=== PATIENT | female | born 1985 | race Caucasian/White ===

== ENCOUNTER → 2017-10-06 11:00 | Outpatient (CLI) | payer SELFPAY ==
[2017-10-09 08:41] LABS: HPV Reflexed? NOT INDICATED
== END ==
PROVIDERS: Visit Provider Obstetrics & Gynecology
DX: Z12.4 Encounter for screening for malignant neoplasm of cervix (principal)
CPT/HCPCS: 88175; G0145

== ENCOUNTER → 2018-10-19 | Outpatient (CLI) | payer SELFPAY ==
[2016-07-06 21:04] VITALS: BMI 27.2
[2018-10-20 20:14] LABS: Chlamydia Trachomatis by PCR Negative (Negative); Neisserai gonorrhoeae by PCR Negative (Negative); Probe Check PASS; Sample Adequacy Control PASS; Specimen Processing Control PASS
== END | disposition home or self-care (01) ==
LOC: LABSPEC 10-20 09:51
PROVIDERS: Visit Provider Obstetrics & Gynecology
DX: Z11.3 Encounter for screening for infections with a predominantly sexual mode of transmission (principal)
CPT/HCPCS: 87491; 87591

== ENCOUNTER → 2019-03-16 10:23 | Outpatient (CLI) | payer SELFPAY ==
[2019-03-16 14:58] LABS: Glucose 85 mg/dL (74-106)
[2019-03-16 15:02] LABS: Glucose 87 mg/dL (74-106)
== END ==
PROVIDERS: Visit Provider Obstetrics & Gynecology
DX: Z34.83 Encounter for supervision of other normal pregnancy, third trimester (principal)
CPT/HCPCS: 36415; 82947

== ENCOUNTER → 2019-05-13 | Outpatient (CLI) | payer SELFPAY ==
[2016-07-06 21:04] VITALS: BMI 27.2
== END | disposition home or self-care (01) ==
LOC: LABSPEC 14:54
PROVIDERS: Visit Provider Obstetrics & Gynecology
DX: Z36.85 Encounter for antenatal screening for Streptococcus B (principal)
CPT/HCPCS: 87081

== ENCOUNTER 2019-06-05 21:55 | Inpatient (IN) | payer SELFPAY ==
[2016-07-06 21:04] VITALS: BMI 27.2
[2019-06-05 22:28] VITALS: BMI 24.7
[2019-06-05] MEDS: 0.9% Saline Lock 10 ML Syringe IV (23:04)
[2019-06-05 23:32] LABS: Absolute Lymphocyte Count 1.51 X10^3/uL (0.83-4.51); Absolute Neutrophil Count 6.4 X10^3/uL (2.0-7.7); Basophil# 0.01 X10^3/uL; Basophil% 0.1 % (0-1); Eosinophil# 0.03 X10^3/uL; Eosinophils% 0.4 % (0-5); Hematocrit 40.3 % (37-47); Hemoglobin 13.4 g/dL (12.0-15.0); Lymphocyte # 1.51 X10^3/ul (4.0); Mean Corp Hgb Conc 33.3 g/dL (32-36); Mean Corpuscular Volume 87.2 fL (81-99); Mean Platelet Vol. 10.4 fl (6.2-12.0); Monocyte# 0.44 X10^3/uL; Monocyte% 5.3 % (0-10); NRBC Flagged by Analyzer 0 % (0-5); Neutrophil # 6.36 X10^3/uL (2.7-7.7); Neutrophil % 75.8 % (47-70); Platelet Count 156 K/mm3 (150-450); RBC Distribution Width CV 13.2 % (11.6-14.6); RBC Distribution Width SD 41.6 fl (35.1-43.9); Red Blood Count 4.62 M/mm3 (4.2-5.4); White Blood Count 8.4 K/mm3 (4.4-11.0)
--- NOTE | 2019-06-06 00:14 | PCM.HP.OB ---
- Problem List (1) 39 weeks gestation of Status: Acute History Date of Admission: 06/05/19 Final NICOLE: 06/07/19 Gestational age: 39 Weeks and 6 Days History of this : This is a 33 year-old, G [6], P []3023, at 39 5/7 weeks gestational age with c/o contractions. Medical History: Medical History (Last Updated 06/06/19 @ 00:[address] Berenice Mclaughlin MD) Ventricular tachycardia I47.2 Surgical History: Surgical History (Last Updated 06/06/19 @ 00:[address] Berenice Mclaughlin MD) H/O breast biopsy Z98.890 Allergies latex Adverse Reaction (Verified 06/05/19 22:29) Rash Home Medications: Home Medications Vits [Prenatabs FA] 1 tablet PO DAILY 07/06/16 Smoking Status: Never smoker Alcohol: None Number of Fetus(es): 1 NST - FHR Rate Baby A Baseline: 140 Variability:: Moderate Accelerations:: 15 x 15 Decelerations:: None NST Reactive:: Yes FHR Category:: Category I Uterine Activity:: 3-4/10 min History Past Pregnancies: Past Pregnancies Delivery Date Name GA/ Weeks Outcome Route Wt Infant Sex Labor Length Anesthesia Delivery Location FOB 04/2010 39 Living 6lb8oz F 7 None [facility] Jason 06/2011 Myrna 39 Living 7lb8oz F 6 None [facility] Jason 10/2013 9 [facility] Jason 06/2016 Serafin 38 Living 9lb2oz M 0 None [facility] Jason 03/2018 6 SAB Home Jason Labs: Mom's Labs & Results 06/05/19 06/05/19 23:04 23:04 WBC 8.4 RBC 4.62 Hgb 13.4 Hct 40.3 MCV 87.2 MCH 29.0 MCHC 33.3 RDW Std Deviation 41.6 RDW Coeff of Abiodun 13.2 Plt Count 156 MPV 10.4 Immature Gran % (Auto) 0.400 Neut % (Auto) 75.8 H Lymph % (Auto) 18.0 L Powell % (Auto) 5.3 Eos % (Auto) 0.4 Baso % (Auto) 0.1 Absolute Neuts (auto) 6.4 Absolute Lymphs (auto) 1.51 Nucleated RBC % 0 Blood Type Pending Antibody Screen Pending Course Did the patient receive Yes care? Labs Blood Type: A RH: POSITIVE RPR/VDRL/Syphilis Nonreactive Rubella status Non-immune HbSAg Negative Date Done: 11/30/18 Chlamydia Negative Gonorrhea Negative HIV/AIDS Non-Reactive Group B Strep: Negative Current Obstetrical History Gestational Diabetes No Incompetent Cervix No Infertility No IUGR No Macrosomia No Hypertension/Pre-eclampsia No Placenta Previa/Abruption No PTL/PROM No Uterine anomaly Yes: marginal placenta previa that resolved on its own Oligohydramnios No Polyhydramnios No Multiple gestation No Past Medical History Asthma No Diabetes No Hypertension No Heart disease No Mitral valve prolapse No Neurologic/Seizure disorder/ No Migraines Kidney disease No Liver disease No Varicosities No Clotting disorders/Hx of DVT No Thyroid Dysfunction No Other medical diseases No Psychiatric disorders No Major trauma No Abnormal PAP smear No Sleep apnea No Mammogram in the last 2 years No: right breast lump that was biopsied Enter DETAILS of medical wide complex V-tach and palpatations history occasionally, heart murmur Social History Marital Status: Alleged father Jason Hsu Smoking No Smoking Status Never smoker Expected Delivery Method: Spontaneous Vaginal Number of Visits: 11 Physical Exam Vitals: avss General: Alert, Oriented x3, Cooperative, No apparent distress HEENT: Atraumatic, Normocephalic Cardiovascular: Regular rate, Regular Rhythm, Normal S1, Normal S2 Lungs: Normal air movement Abdomen: Soft, Non Tender, Non-Distended, Gravid Extremities:: No edema Neurological: Neuro grossly intact Estimated gestational size: Appropriate for gestational size Presentation: Cephalic Cervix Dilation (cm): 8 Station: -1 Effacement (%): 90 Assessment/Plan All Active Problems (Last Updated 06/06/19 @ 00:[address] Berenice Mclaughlin MD) 39 weeks gestation of (Acute) (spontaneous vaginal delivery) (Acute) This is a 33 year-old, G [6], P [0663], at 39 5/7 weeks gestational age in active labor, Cat I FHR -Anticipate
[2019-06-06] MEDS: Oxytocin 30 units/NS 500 ml 30 UNITS/500 ML IV.SOLN 334 UNITS IV (01:31)
--- NOTE | 2019-06-06 01:45 | PCM.OPRPT ---
Problem List (1) 39 weeks gestation of Status: Acute (2) (spontaneous vaginal delivery) Status: Acute Vaginal Delivery Maternal Presentation: Active Labor Amniotic Membrane Rupture Type: Artificial Rupture of Membrane time: 06/06/19 0040 Amniotic Fluid Description: Cloudy Final NICOLE: 06/07/19 Final NICOLE Source: [place] <20 weeks Gestational age: 39 Weeks and 6 Days Date of Procedure: 06/06/19 Pre-Operative Diagnosis: 39 6/7wga Post-Operative Diagnosis: 39 6/7wga Surgery/ Procedure Performed: Spontaneous Vaginal Delivery Type of Anesthesia: None Description of Procedure: Patient was / and amniotomy performed with blood tinged fluid. She progressed to FD/+1 station with fluid clearing in color. She pushed to deliver a vigorous female over an intact perineum. The infant was placed on the maternal abdomen and further attended by nursery personnel. The cord was doubly clamped and cut at 5 minutes of life. The placenta delivered spontaneously and appeared intact on inspection. Fundus firm and nontender. Sponge counts correct x 2. Presentation: Vertex Placental Delivery Description: Spontaneous Placenta Disposition: [facility] Cord Vessel Description: 3 Vessels Nuchal Cord Compression: Without compression Cord Entanglement: Around neck x 1, loose Estimated Blood Loss: 50 ml Infant A gender: Female (1 minute): 9 (5 minute): 9 Episiotomy Description: None Laceration: None Medications given after delivery: IV Pitocin Complications: None
[2019-06-06] MEDS: Acetaminophen 500 MG Tablet 1000 MG PO ×3 (04:00→21:04)
--- NOTE | 2019-06-06 07:29 | DCINST_ITS ---
Discharge Diet: No Restrictions Discharge Activity: Return to Normal Activity, May Shower, May Take a Tub Bath May resume sexual activity in: 6 weeks Additional Instructions: If you experience any of the following, contact your healthcare provider. * Bleeding that soaks a pad every hour for 2 hours * Fever 100.4 or higher * Unrelieved incision or abdominal pain * Swelling, redness, discharge or bleeding from your incision or episiotomy site * Your incision begins to separate * Problems urinating (including inability to urinate or burning while urinating). * Visual changes * Severe headache * Flu-like symptoms * Pain or redness in one of both of your breasts * Pain, warmth, tenderness or swelling in your legs, especially the calf area * Frequent nausea and vomiting * Symptoms of depression or anxiety If you experience any of the following, call 911 or go to the nearest Emergency Room. * Chest pain * Problems breathing * Seizure activity * Partial or complete paralysis of a body part, slurred speech, weakness or drooping of the face, or a sudden inability to walk or hold your balance You may take Ibuprofen (Advil or Motrin) or Naproxen (Aleve) over the counter for pain. Take a stool softener as needed. Continue your multivitamin while . Allergies/Adverse Reactions: Allergies latex Adverse Reaction (Verified 06/05/19 22:29) Rash Medications to take at Discharge Vits [Prenatabs FA] 1 tablet PO DAILY 07/06/16 Please Follow Up With: Josh Bennett MD When: 6 weeks Test Results: Test results from this visit will be discussed in further detail at your follow- up appointment, if applicable.
--- NOTE | 2019-06-06 07:29 | PCM.DCVAG ---
Discharge Diet: No Restrictions Discharge Activity: Return to Normal Activity, May Shower, May Take a Tub Bath May resume sexual activity in: 6 weeks Additional Instructions: If you experience any of the following, contact your healthcare provider. Bleeding that soaks a pad every hour for 2 hours Fever 100.4 or higher Unrelieved incision or abdominal pain Swelling, redness, discharge or bleeding from your incision or episiotomy site Your incision begins to separate Problems urinating (including inability to urinate or burning while urinating). Visual changes Severe headache Flu-like symptoms Pain or redness in one of both of your breasts Pain, warmth, tenderness or swelling in your legs, especially the calf area Frequent nausea and vomiting Symptoms of depression or anxiety If you experience any of the following, call 911 or go to the nearest Emergency Room. Chest pain Problems breathing Seizure activity Partial or complete paralysis of a body part, slurred speech, weakness or drooping of the face, or a sudden inability to walk or hold your balance You may take Ibuprofen (Advil or Motrin) or Naproxen (Aleve) over the counter for pain. Take a stool softener as needed. Continue your multivitamin while . Allergies/Adverse Reactions: Allergies latex Adverse Reaction (Verified 06/05/19 22:29) Rash Medications to take at Discharge Vits [Prenatabs FA] 1 tablet PO DAILY 07/06/16 Please Follow Up With: Josh Bennett MD When: 6 weeks Test Results: Test results from this visit will be discussed in further detail at your follow-up appointment, if applicable.
[2019-06-06 07:44] VITALS: BP 98/56; TEMP 36.6
[2019-06-06 08:07] VITALS: RESP 14
[2019-06-06] MEDS: Prenatal Vits Tablet 1 TABLET PO (10:19)
[2019-06-06 12:00] VITALS: BP 105/55; RESP 16; TEMP 36.8
--- NOTE | 2019-06-06 13:06 | NURSING ---
This clinical nursing manager gave tylenol 1000mg with Cierra Loja student nurse. Student's documentation reviewed and completed.
[2019-06-06 15:12] VITALS: BP 106/55; PULSE 74; RESP 16; TEMP 36.4
[2019-06-06 20:48] VITALS: BP 114/61; PULSE 74; RESP 16; TEMP 36.6
[2019-06-07 01:40] VITALS: BP 97/55; PULSE 70; RESP 16; TEMP 36.5
--- NOTE | 2019-06-07 08:33 | PCM.PN.OB ---
Patient Problems: Active and Suspected Problems (Last Updated 06/06/19 @ 00:[address] Berenice Mclaughlin MD) 39 weeks gestation of (Acute) (spontaneous vaginal delivery) (Acute) Subjective: Patient without complaints. Breast-feeding going well. Wants to go home today if baby is able to go. - Physical Exam Vitals/I&O's: Vital Signs Temp Pulse Resp BP 97.7 F L 70 16 97/55 L 06/07/19 01:40 06/07/19 01:40 06/07/19 01:40 06/07/19 01:40 Oxygen Delivery Method Room Air Weight: 163 lb Body Mass Index (BMI) 24.7 Intake and Output for Last 24 Hours 06/05/19 06/06/19 06/07/19 23:59 23:59 23:59 Intake Total 500 / 500 Output Total 600 / 600 Balance -100 / -100 Current Medications Acetaminophen (Tylenol) 1,000 mg PO Q8H PRN PRN PRN Reason: Pain Score 1-3/10 Last Admin: 06/06/19 21:04 Dose: 1,000 mg Documented by: Bisacodyl (Dulcolax) 10 mg RECTAL UD PRN PRN Reason: If no BM Dibucaine (Dibucaine) 1 applic TOPICAL TID PRN PRN; Protocol PRN Reason: Discomfort Hydrocortisone (Hytone) 1 applic TOPICAL TID PRN PRN; Protocol PRN Reason: Discomfort Measles/Mumps/Rubella Vaccine Live (M-M-R Ii) 0.5 ml SC .ONCE ONE Stop: 06/07/19 10:01 Methylergonovine Maleate (Methergine) 0.2 mg IM X1 PRN PRN Reason: Excess bleeding/uterine atony Ondansetron HCl (Zofran) 4 mg IV Q4H PRN PRN PRN Reason: Nausea Multivit/Folic Acid/Iron (Prenatabs Fa) 1 tablet PO DAILY MARLENE Last Admin: 06/06/19 10:19 Dose: 1 tablet Documented by: Senna/Docusate Sodium (Senokot-S, Jacki-Colace) 1 - 2 tablet PO DAILY PRN PRN PRN Reason: Constipation Simethicone (Mylicon) 80 mg PO PCHS PRN PRN Reason: Indigestion/Stomach pain Sodium Chloride () 5 - 15 ml IV UD PRN PRN Reason: SALINE FLUSH Medical Necessity - Tobacco Use Smoking Status: Never smoker Assessment/Plan All Active Problems (Last Updated 06/06/19 @ 00:[address] Berenice Mclaughlin MD) 39 weeks gestation of (Acute) (spontaneous vaginal delivery) (Acute) Doing well day #1 status post routine spontaneous vaginal delivery. Will discharge to home with routine instructions.
[2019-06-07] MEDS: Acetaminophen 500 MG Tablet 1000 MG PO (09:26)
[2019-06-07] MEDS: Senna/Docusate Sodium 1 Tablet PO (09:26)
[2019-06-07] MEDS: Prenatal Vits Tablet 1 TABLET PO (09:26)
[2019-06-07 10:00] VITALS: BP 104/59; PULSE 72; RESP 16; TEMP 36.8; O2SAT 99
[2019-06-07 12:36] VITALS: BP 105/62; PULSE 73; RESP 16; TEMP 36.7
== END 2019-06-07 14:00 | disposition home or self-care (01) | DRG 807 ==
LOC: WPOUT 22:16 → WP 22:16
PROVIDERS: Admitting Provider Obstetrics & Gynecology; Visit Provider Obstetrics & Gynecology
DX: O69.81X0 Labor and delivery complicated by cord around neck, without compression, not applicable or unspecified (principal); Z37.0 Single live birth; Z3A.39 39 weeks gestation of pregnancy
CPT/HCPCS: 59050; 85025; 86850; 86900; 86901; 99218; A4216; G0378

== ENCOUNTER → 2020-01-04 | Outpatient (CLI) | payer SELFPAY ==
[2020-01-09 15:28] LABS: HPV Reflexed? NOT INDICATED
== END | disposition home or self-care (01) ==
LOC: LABSPEC 14:36
PROVIDERS: Visit Provider Obstetrics & Gynecology
DX: Z12.4 Encounter for screening for malignant neoplasm of cervix (principal)
CPT/HCPCS: 88175; G0145

== ENCOUNTER → 2022-06-03 | Outpatient (CLI) | payer SELFPAY ==
[2022-06-09 21:09] LABS: HPV APTIMA, High Risk Negative (Negative)
== END | disposition home or self-care (01) ==
PROVIDERS: Visit Provider Student in an Organized Health Care Education/Training Program
DX: Z12.4 Encounter for screening for malignant neoplasm of cervix (principal)
CPT/HCPCS: 87624; 88175; G0145

== ENCOUNTER → 2024-08-31 | Outpatient (CLI) | payer SELFPAY ==
[2024-08-31 13:23] LABS: hCG Titer Quant., Serum < 1 mIU/mL (<9 non-preg)
[2024-08-31 13:44] LABS: Estradiol < 5.0 pg/mL; Luteinizing Hormone 77.5 mIU/mL
== END | disposition home or self-care (01) ==
PROVIDERS: PCP Physician Assistant; Referring Provider Advanced Practice Midwife; Visit Provider Advanced Practice Midwife
DX: N91.1 Secondary amenorrhea (principal); Z13.29 Encounter for screening for other suspected endocrine disorder
CPT/HCPCS: 36415; 82670; 83001; 83002; 84439; 84443; 84702

== ENCOUNTER → 2024-10-03 | Outpatient (CLI) | payer SELFPAY | END | disposition home or self-care (01) | LOC: LAB 11:02 | PROVIDERS: PCP Physician Assistant | DX: Z00.00 Encounter for general adult medical examination without abnormal findings (principal) | CPT/HCPCS: 36415 ==

== ENCOUNTER → 2024-10-12 | Outpatient (CLI) | payer SELFPAY ==
--- OUTSIDE RECORDS SUMMARY | 2024-10-12 22:46 | XMS RPT_ITS | CCD ---
Author Organization [facility] Care Team Providers Care Employer Relations Representative Name Role Phone VERDIN, EDD J Consulting Unavailable VERDIN, EDD J Attending Unavailable VERDIN, EDD J Admitting Unavailable VERDIN, EDD J Primary Care Unavailable PROVIDER, UNKNOWN Consulting Unavailable VERDIN, EDD J Primary Care Unavailable VERDIN, EDD J Consulting Unavailable VERDIN, EDD J Attending Unavailable VERDIN, EDD J Admitting Unavailable PROVIDER, UNKNOWN Consulting Unavailable VERDIN, EDD J Primary Care Unavailable VERDIN, EDD J Consulting Unavailable VERDIN, EDD J Attending Unavailable VERDIN, EDD J Admitting Unavailable PROVIDER, UNKNOWN Consulting Unavailable AMATO, ERIKA PA-C Admitting Unavailable AMATO, ERIKA PA-C Primary Care Unavailable AMATO, ERIKA PA-C Attending Unavailable VERDIN, EDD J Consulting Unavailable PROVIDER, UNKNOWN Consulting Unavailable Verdin PA-C, Edd J Unavailable Verdin PA-C, Edd J Unavailable [facility] Unavailable [phone] Heidi Harman MD Unavailable Sherrie Hollis LPN Unavailable Amato PA-C, Erika J Unavailable Diego Borrero MD Unavailable Too PA-C, Yesika Pugh Unavailable Isai HARRIS, Yesika Landers Unavailable Unavaila ble Patrick HERNÁNDEZN, Cathy Kam Unavailable Unavaessence Perez STRIPPER CUTTER MACHINE, Heidi Jacinto Unavailable Unavailab oliva Faye LPN, Janet Unavailable Unavailabl silvia Hillman LPN, Courtney Unavailable Unavailable Unavailable Unavailable ENT Provider Unavailable Unavailable Lisandra COLLINS, Shruti Unavailable UnavailSonja Dia MA Unavailable Unavailable Verdin REECE, Edd Primary Care Provider [phone] Edd Comer Referring Provider Joelle Muniz CNM Attending Provider [phone] Joelle Muniz CNM Referring Provider [phone] MARY BETH BORRERO Attending Provider MARY BETH BORRERO Referring Provider [phone] Lambert NEWELL, Edd Primary Care Unavailable Lambert NEWELL, Edd Referring Unavailable Joelle Muniz Attending Unavailable Lambert NEWELL, Edd Primary Care Unavailable Joelle Muniz Attending Unavailable Joelle Muniz Referring Unavailable JORDY SOLITARIO Attending Unavailable JORDY SOLITARIO Referring Unavailable Lambert NEWELL, Edd Primary Care Unavailable Dr. Janet Rios DO Attending Provider Allergies Allergy Classification Reported Allergen(s) Allergy Type Date of Onset Reaction(s) Facility (3 sources) Latex Propensity to adverse reactions [address] [place] [address] (1 source) Latex Drug allergy (disorder) [address] [place] [address] Repository Medications Current Medications Medication Drug Class(es) Dates Sig (Normalized) Sig (Original) B-Complex With Vitamin C tablet (1 source) Start: 10-12-2024 B-Complex With Vitamin C tablet Active 1 {tbl} PO daily October 12, 2024 12:00am magnesium citrate 100 mg oral tablet (1 source) Start: 10-12-2024 take 1 capsule by mouth once daily Magnesium Citrate 100 mg capsule Active 100 mg PO daily October 12, 2024 12:00am Completed/Discontinued Medications Medication Drug Class(es) Dates Sig (Normalized) Sig (Original) amoxicillin 500 mg oral tablet (12 sources) Penicillin-class Antibacterial Start: 11-12-2020 End: 08-26-2021 take 1 tablet by mouth three times daily Amoxicillin 500 MG Oral Tablet ; 1 Tab three times daily for 7 days Quantity: 21 {Tablet} Refills: 1 Ordered: 26-Aug-2021 KARINA Perez Start: 12-Nov-2020 End: 26-Aug-2021 Status: Inactive Start: 06-18-2018 End: 06-19-2018 Amoxicillin 500 MG Oral Tabl et ; 4 Tablet 30 min prior to dental procedure for 1 days Quantity: 4 {Tablet} Refills: 0 Ordered: 18-Jun-2018 KARINA Nguyen Start: 18-Jun-2018 End: 19-Jun-2018 Status: Inactive amoxicillin 875 mg / clavulanate 125 mg oral tablet (12 sources) Penicillin-class Antibacterial Start: 06-10-2023 End: 06-19-2023 amoxicillin 875 mg-potassium clavulanate 125 mg tablet ; 1 Tablet two times daily for 10 days Quantity: 20 {Tablet} Refills: 0 Ordered: 19-Jun-2023 AMEENA Verdin Start: 10-Jun-2023 End: 19-Jun-2023 Status: Inactive Start: 10-05-2014 End: 10-15-2014 take 1 tablet by mouth twice daily at mealtime AUGMENTIN, 875-125MG (Oral Tablet) ; 1 (one) Tablet BID for 10 days Quantity: 20 {Tablet} Refills: 0 Ordered: 05-Oct-2014 AMEENA Gage Start: 05-Oct-2014 End: 15-Oct-2014 Status: Inactive Comments: Take with food Comment on above: Take with food cefdinir 300 mg oral capsule (5 sources) Cephalosporin Antibacterial Start: 06-19-19 End: 06-29-19 cefdinir 300 mg capsule ; 1 (one) capsule BID for 10 days Quantity: 20 {Capsule} Refills: 0 Ordered: 19-Jun-2023 AMEENA Verdin Start: 19-Jun-2023 End: 29-Jun-2023 Status: Inactive Comments: Changing from augmentin to cefdinir. Take cefdinir tonight when next dose of augmentin would have been due Comment on above: Changing from augmen tin to cefdinir. Take cefdinir tonight when next dose of augmentin would have been due doxycycline hyclate 100 mg oral capsule (6 sources) Tetracycline-class Drug Start: 09-21-19 End: 10-05-19 take 1 capsule by mouth twice daily Doxycycline Hyclate 100 MG Oral Capsule ; 1 (one) Capsule BID for 14 days Quantity: 28 {Capsule} Refills: 0 Ordered: 20-Sep-2021 AMEENA Verdin Start: 20-Sep-2021 End: 04-Oct-2021 Status: Inactive Comments: Please review not to take with Comment on above: Please review not to take with fluconazole 150 mg oral tablet (6 sources) Azole Antifungal Start: 05-17-19 11 End: 05-18-19 11 take 1 tablet by mouth once daily FLUCONAZOLE, 150MG (Oral Tablet) ; 1 Tablet daily for 1 days Quantity: 1 {Tablet} Refills: 0 Ordered: 17-May-2010 MD Heidi Harman Start: 17-May-2010 End: 18-May-2010 Status: Inactive nystatin [id number] unt/ml topical cream (6 sources) Polyene Antifungal Start: 05-17-19 11 End: 03-01-20 14 NYSTATIN, [id number]/GM (External Cream) ; AAA Cream three times daily for 7 days for 0 days Quantity: 30 {gram(s)} Refills: 0 Ordered: 01-Mar-2014 KARINA Faye Start: 17-May-2010 End: 01-Mar-2014 Status: Inactive oseltamivir 75 mg oral capsule (6 sources) Neuraminidase Inhibitor Start: 06-19-19 19 End: 02-22-20 19 take 1 capsule by mouth twice daily Oseltamivir Phosphate 75 MG Oral Capsule ; 1 (one) Capsule two times daily for 5 days Quantity: 10 {Capsule} Refills: 0 Ordered: 21-Feb-2019 KARINA Faye Start: 18-Jun-2018 End: 21-Feb-2019 Status: Inactive Vit,[id number] c (Prenatabs Fa) 1 TABLET tablet (3 sources) Start: 07-07-19 17 End: 07-23-19 24 take 1 tablet by mouth once daily Vit,[id number] c (Prenatabs Fa) 1 TABLET tablet Discontinued 1 {tbl} PO DAILY July 06, 2016 12:00am July 23, 2023 2:36pm supplement Start: 07-06-2016 End: 07-23-2023 take 1 tablet by mouth once daily Vit,[id number] (Prenatab s Fa) 1 TABLET tablet Discontinued 1 {tbl} PO DAILY July 06, 2016 12:00am July 23, 2023 2:36pm /FOLIC ACID (Oral Tablet) (6 sources) take 1 tablet by mouth once daily /FOLIC ACID (Oral Tablet) ; 1 tab daily Status: Inactive sulfamethoxazole 800 mg / trimethoprim 160 mg oral tablet (6 sources) Dihydrofolate Reductase Inhibitor Antibacterial, Sulfonamide Antimicrobial Start: End: take 1 tablet by mouth twice daily BACTRIM DS, 800-160MG (Oral Tablet) ; 1 Tab two times daily for 5 days Quantity: 10 {Tablet} Refills: 0 Ordered: 04-Nov-2014 MD Diego Borrero Start: 04-Nov-2014 End: 09-Nov-2014 Status: Inactive valACYclovir 500 mg oral tablet (3 sources) Herpesvirus Nucleoside Analog DNA Polymerase Inhibitor, Herpes Simplex Virus Nucleoside Analog DNA Polymerase Inhibitor, Herpes Zoster Virus Nucleoside Analog DNA Polymerase Inhibitor Start: End: take 1 tablet by mouth twice daily Valacyclovir (Valtrex) 500 mg tablet Discontinued 500 mg PO TWICE A DAY July 23, 2023 12:00am October 12, 2024 1:34pm Problems Active Problems Problem Classification Problem Date Documented Date Episodic/Chronic Cardiac dysrhythmias (20 sources) Palpitations; Translations: [Tachycardia] 02-21-2019 Episodic Fever of unknown origin (18 sources) Fever; Translations: [Fever, unspecified] 08-26-2021 Episodic Genitourinary symptoms and ill-defined conditions (12 sources) Dysuria; Translations: [Dysuria] 02-21-2019 Episodic Immunizations and screening for infectious disease (20 sources) Contact with and (suspected) exposure to other viral communicable diseases; Translations: [Contact with or exposure to other viral diseases] 08-26-2021 Episodic Lymphadenitis (12 sources) Acute lymphadenitis; Translations: [Acute lymphadenitis, unspecified] 02-21-2019 Episodic Malaise and fatigue (12 sources) Fatigue; Translations: [Other fatigue] 02-21-2019 Episodic Menopausal disorders (2 sources) Premature ovarian failure; Translations: [Other primary ovarian failure] 08-31-2024 Chronic Menstrual disorders (7 sources) Secondary amenorrhea; Translations: [Secondary amenorrhea] Onset: 09-02-2024 08-24-2024 Chronic Other aftercare (18 sources) Drug indicated; Translations: [Other senior living (current) drug therapy] 02-21-2019 Episodic Other aftercare (18 sources) Antibiotic prophylaxis indicated; Translations: [correction (current) use of antibiotics] 08-26-2021 Episodic Other ear and sense organ disorders (12 sources) Impacted cerumen in left ear; Translations: [Impacted cerumen, left ear] 08-26-2021 Episodic Other ear and sense organ disorders (6 sources) Ear pressure sensation; Translations: [Other specified disorders of right ear] 10-30-2023 Episodic Other infections; including parasitic (15 sources) Lyme disease; Translations: [Lyme disease, unspecified] 02-03-2022 Episodic Comment on above: tick bite Other injuries and conditions due to external causes (12 sources) Injury of right foot; Translations: [Unspecified injury of right foot, initial encounter] 02-03-2022 Episodic Other lower respiratory disease (12 sources) Other respiratory abnormalities 02-21-2019 Episodic Other and delivery including normal (18 sources) Second trimester ; Translations: [Encounter for supervision of normal , unspecified, second trimester] 02-21-2019 Episodic Other screening for suspected conditions (not mental disorders or infectious disease) (2 sources) Thyroid function tests abnormal; Translations: [Other specified abnormal findings of blood chemistry] 08-31-2024 Episodic Other upper respiratory infections (18 sources) Sinusitis; Translations: [Chronic sinusitis, unspecified] 08-26-2021 Chronic Other upper respiratory infections (20 sources) Acute sinusitis; Translations: [Acute sinusitis, unspecified] 02-21-2019 Episodic Otitis media and related conditions (16 sources) Otitis media of right ear; Translations: [Otitis media, unspecified, right ear] 06-10-2023 Episodic Unclassified (2 sources) Unspecified Diagnosis 06-19-2023 Past or Other Problems Problem Classification Problem Date Documented Da te Episodic/Chronic Headache; including migraine (6 sources) Headache; including migraine 07-21-2012 Unclassified (6 sources) Foot pain - The pain is in the right foot. The onset of the foot pain was sudden (last night, she stubbed her right foot on a bench (hit between the 3rd and 4th toes). She heard a crack when this happened.) and has been occurring in a persistent pattern for 1 day. The course has been gradually improving. The pain is moderate. The pain is characterized as a dull aching (at rest, with movement and walking the pain will become sharper). The pain is aggravated by any movement (walking) and prolonged standing. The pain has been relieved by rest. The symptoms have been associated with swelling (bottom of foot is swelled some and has bruising to the top of the foot), painful ROM and decreased ROM (not able to bend her 4th toe of the right foot). There have been no previous diagnostic tests. There have been no previous evaluations. These has been no previous physical therapy. There have been no previous surgeries. Note for Foot pain: Patient denies any changes in sensation in her foot. 02-03-2022 Unclassified (6 sources) Fatigue - The onset of the fatigue has been gradual and has been occurring in an intermittent (will have some good days) pattern for 7 months. The course has been constant. The fatigue occurs all the time. The symptoms have been associated with headache (is having migraines). Note for Fatigue: Has had tachycardia since she was a teen but since she has had bad days with no energy and tachycardia. Mornings are hard for her to get up and going. Around that time she was under a lot of stress but that has improved.Menstrual cycles are regular - has menses every 3-4 weeks.Describes migraines as head tired, swimmy feeling. Yesterday had a migraine - usually has about once a month. Tylenol doesn't help; lasts for about a day; frontal; no vision changes but some nausea. HR will go in the 140s with light activity and is usually 100-110 when sitting; feels like a normal rhythm to her.Has had ECHO in the past - approx 10 years ago.No SOB, leg swelling. During had episode of vtach - cardio felt it was hormones causing misfiring.She does take an adrenal supplement and B vitamins. 08-26-2021 Unclassified (6 sources) Fever - Note for Fever: Symptoms include fever (103 during the night), general malaise (stiff neck) and headache. The onset was gradual 4 day(s) ago. The symptoms occur constantly. The patient describes this as moderate in severity and worsening. Current treatment includes acetaminophen and NSAIDs. The patient has not been exposed to an individual with similar symptoms.Fever has been low grade since Thursday evening but has gradually been increasing.No cold symptoms.No SOB. No loss of taste or smell.Unknown if has had a tick bite but does frequently remove them from her children.No rash.Has been pushing fluids.No urinary symptoms. Currently on menses.Alternating ibuprofen/tylenol every 4-6 hours - last dose was at 9:15am (ibuprofen) - never brings temp all the way down; helps with headache but doesn't take it away.Describes headache on top of head; not severe.No known ill contacts. 11-08-2020 Unclassified (6 sources) Ear pain - The onset of the pain has been gradual (said ever since she is ; she has been putting drops in her ear to soften the wax but the other night her left ear plugged up and remains that way) and has been occurring in a persistent pattern for months. The course has been constant. The pain is described as moderate. 02-21-2019 Unclassified (6 sources) Cold Symptoms - Symptoms include nasal congestion (initially), sore throat, scratchy throat, dry cough (chest discomfort at times), general malaise, headache and facial pain (initially), but do not include sneezing, runny nose, fever or chills. The onset was gradual 2 week(s) ago. The symptoms occur constantly. The patient describes this as moderate in severity and worsening. Current treatment includes acetaminophen. Risk factors do not include smoking. The patient has been exposed to an individual with similar symptoms. Patient denies history of seasonal allergies, asthma or tonsillectomy. 10-05-2014 Unclassified (6 sources) Fever - The onset of the fever has been acute , and it has been occurring for 6 hours. The course has been constant. The patient has had a temperature of up to 103 F (Tmax 103.7). The fever is relieved by analgesics (tylenol at 8am). There has been associated chills, headache (frontal, cheeks, eyes, and back of head) and myalgia, while there has been no cough, ear pain, runny nose or sore throat. Note for Fever: Started her period this morning. Had a fever 6 days ago and then none until yesterday - just had a headache and tired feeling during that time. No urinary or stomach issues. Daughter recently had a throat infection but pt denies sore throat. 03-01-2014 Unclassified (6 sources) Sore Throat - The onset of the sore throat has been acute and has been occurring in a persistent pattern for 8 days. The course has been without change. The sore throat is described as severe (Pt can't hardly eat d/t severity of s/t. ). The sore throat was precipitated by was precipitated by exposure to a person with a viral illness (mild sore throat). Symptoms include sore throat (has had sores and blisters on tonsils), fever (Tmax 101.5) and nasal congestion, but do not include runny nose (just started some PND today) or cough. Relieving factors include nothing (has tried Aleve). Note for Sore Throat: Was at our office on , strep was negative. Was treated with amox due to severity of LAD. 11-18-2010 Unclassified (6 sources) Cold Symptoms - Symptoms include sore throat, general malaise and headache (achey). The onset was gradual 5 day(s) ago. The symptoms occur constantly. The patient describes this as severe and worsening. Note for Cold Symptoms: also has had a sore throat. Hasn't taken anything OTC other than aleve which helped with the headache only. No fever. No rhinitis, cough, or ear pain. Painful to swallow. 11-14-2010 Unclassified (6 sources) fatigue and increased heart rate. - Pt is 26wks and sees Tracy Loaiza for her care. She states that she has been having trouble with her heart beating really fast, hard and some shortness of breath on exertion. 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 She states she does not have chest pain, it just feels tight sometimes. She also c/o fatigue with very much exertion. She has been fairly sick (ongoing hyperemesis) with this as well, but has had no complications. CNM has recommended MD evaluation and per pt, no workup has been done. Symptoms have been ongoing and stable thru the but she notices it more as she tries to do more. 01-29-2010 Unclassified (1 source) Ear pain - The onset of the pain has been gradual and has been occurring in a persistent pattern for 1 day (Patient states the pain did go away from previous problem. However pain started again 1 day ago.). The course has been constant. The pain is described as a moderate pressure and plugged. The pain is described as being located in the external ear and in the inner ear. The pain is felt in the right ear. The symptoms have been associated with decreased hearing. Medical History includes ear infections. 06-19-2023 Unclassified (4 sources) Ear pain - The onset of the pain has been gradual and has been occurring in a persistent pattern for 1 day (Patient states the pain did go away from previous problem (had mentioned at her child's appt 9 days ago that she also had flu like symptoms but the night before had started with severe right ear pain; erythematous/bulging right TM so was started on augmentin; then had bloody drainage from the ear; continued on augmentin). However pain started again 1 day ago.). The course has been constant. The pain is described as a moderate pressure and plugged. The pain is described as being located in the external ear and in the inner ear. The pain is felt in the right ear. The symptoms have been associated with decreased hearing. Medical History includes ear infections. Note for Ear pain: Ringing in the right ear. 06-19-2023 Unclassified (3 sources) Ear pain - The onset of the pain has been gradual and has been occurring in a persistent pattern for 6 months. The course has been constant. The pain is described as a mild pressure and plugged. The pain is described as being located in the inner ear. The pain is felt in the right ear. The symptoms have been associated with decreased hearing, while the symptoms have not been associated with chills, fever, sore throat, runny nose or cough. Medical History does not include ear infections, seasonal allergies or recurrent sinusitis. Note for Ear pain: Patient reports that her symptoms first started when she was treated for an ear infection. She ended up seeing an ENT, but has not seen them for several months. 10-30-2023 Results Test Name Value Interpretation Reference Range Facility Miscellaneous Lab Procedureo n 10-10-2024 [facility] TEST Normal [facility] Comment on above: Order Comment: DIREC T SEND OUT Result Comment: Sent directly to testing facility per ordering physician. Performed By: #### L [id number] #### [facility] [address] [place], [address] Estradiolon 08-31-2024 ESTRADIOL < 5.0 Normal [facility] Comment on above: Result Comment: FEMA LES ADULT FEMALE: Premenopausal: 15-350 pg/mL(E2 levels vary widely through the menstrual cycle) Postmenopausal: <10 pg/mL MOIZ STAGES MEAN AGE REFERENCE RANGES Stage I(>14 days and prepubertal) 7.1 years Undetectable-20 pg/mLL Stage II 10.5 years Undetectable-24 pg/mL Stage III 11.6 years Undetectable-60 pg/mL Stage IV 12.3 years 15-85 pg/mL Stage V 14.5 years 15-350 pg/mL Puberty onset (transition from Moiz stage I to Moiz stage II) occurs for girls at a median age of 10.5 (/- 2) years. There is evidence that it may occur up to 1 year earlier in obese girls and in girls. Progression through Moiz stages is variable. Moiz stage V (adult) should be reached by age 18. Performed By: #### L [id number], [id number], [id number], [id number], [id number] #### [facility] [address] [place], [address] FSH and LHon 08-31-2024 FSH 192.0 mIU/mL Normal [facility] Comment on above: Result Comment: FEMA LE: Follicular: 1.4 - 18.1 mIU/mL Midcycle: 3.4 - 33.4 mIU/mL Luteal: 1.5 - 9.1 mIU/mL Post Menopause: 23.0 - 116.3 mIU/mL MALE: 1.4 - 18.1 mIU/mL NORMAL REFERENCE RANGES FEMALE FOLLICULAR 2.3 - 12.6 mIU/mL MID-CYCLE PEAK 5.2 - 17.5 mIU/mL LUTEAL 1.7 - 12.9 mIU/mL POST-MENOPAUSAL ON MHT 5.9 - 72.8 mIU/mL NOT ON MHT 12.7 - 132.2 mlU/mL MALE 0.7 - 10.8 mIU/mL Performed By: #### L [id number], [id number], [id number], [id number], [id number] #### [facility] [address] [place], [place], [id number] LH 77.5 mIU/mL Normal [facility] Comment on above: Result Comment: FEMA LE: Follicular: 1.9-12.5 mIU/mL Midcycle: 8.7-76.3 mIU/mL Luteal: 0.5-16.9 mIU/mL Post Menopause: 15.9-54.0 mIU/mL MALE: 20-70 Years: 1.5-9.3 mIU/mL >70 Years: 3.1-34.6 mIU/mL Performed By: #### L [id number], [id number], [id number], [id number], [id number] #### [facility] [address] [place], [place], [id number] LH ser/plasOrdered By: Joelle Muniz on 08-31-2024 Lutropin Qn 77.5 m[IU]/mL [facility] Comment on above: FEMALE:Follicular: 1 .9-12.5 mIU/mLMidcycle: 8.7-76.3 mIU/mLLuteal: 0.5-16.9 mIU/mLPost Menopause: 15.9-54.0 mIU/mLMALE:20-70 Years: 1.5-9.3 mIU/mL>70 Years: 3.1-34.6 mIU/mL No Panel Informationon 08-[address] [facility]. [facility].; [facility] Serum human chorionic gonado tropin detection for pregnancyOrdered By: Joelle Muniz on 08-31-2024 HCG ( test) Ql < 1 mIU/mL <9 [facility] Comment on above: Gestational Age0.2-1 Week: 5-50 mIU/mL1-2 Weeks: 50-500 mIU/mL2-3 Weeks: 100-5000 mIU/mL3-4 Weeks: 500-10,000 mIU/mL4-5 Weeks:1000-50,000 mIU/mL5-6 Weeks: 10,000-100,000 mIU/mL6-8 Weeks: 15,000-200,000 mIU/mL2-3 Months:10,000-100,000 mIU/mL Serum or plasma estradiol me asurement after follitropin dose (mass/volume)Ordered By: Joelle Muniz on 08-31-2024 E2 post dose follitropin [Mass/Vol] < 5.0 pg/mL [facility] Comment on above: FEMALES ADULT FEMALE : Premenopausal: 15-350 pg/mL(E2 levels vary widely through the menstrual cycle) Postmenopausal: <10 pg/mL MOIZ STAGES MEAN AGE REFERENCE RANGES Stage I(>14 days and prepubertal) 7.1 years Undetectable-20 pg/mLL Stage II 10.5 years Undetectable-24 pg/mL Stage III 11.6 years Undetectable-60 pg/mL Stage IV 12.3 years 15-85 pg/mL Stage V 14.5 years 15-350 pg/mL Puberty onset (transition from Moiz stage I to Moiz stage II) occurs for girls at a median age of 10.5 (/- 2) years. There is evidence that it may occur up to 1 year earlier in obese girls and in girls.Progression through Moiz stages is variable. Moiz stage V (adult) should be reached by age 18. T4 Free Direct[employer] 08-31-2024 T4 FREE DIRECT 1.50 ng/dL High 0.76-1.46 [facility] Comment on above: Performed By: #### L 700.8000, L3100.5055, L3300.1750, L506.0400, L501.9520 #### [facility] Laboratory [address] [place], [place], [id number] T4 freeOrdered By: Joelle christianson on 08-31-2024 Free T4 [Mass/Vol] 1.50 ng/dL High 0.76-1.46 [facility] TSH DL <= 0.005 mIU/L QnOrde red By: Joelle Muniz on 08-31-2024 TSH Qn 1.050 uIU/mL 0.300-4.200 [facility] Thyroid Stim Hormone (TSH)on 08-31-2024 TSH 1.050 uIU/mL Normal 0.300-4.200 [facility] Comment on above: Performed By: #### L 700.8000, L3100.5055, L3300.1750, L506.0400, L501.9520 #### [facility] [address] [place], [address] hCG Titer Quant., Serumon HCG QUANT. < 1 Normal <9 non-preg [facility] Comment on above: Result Comment: Gest ational Age 0.2-1 Week: 5-50 mIU/mL 1-2 Weeks: 50-500 mIU/mL 2-3 Weeks: 100-5000 mIU/mL 3-4 Weeks: 500-10,000 mIU/mL 4-5 Weeks:1000-50,000 mIU/mL 5-6 Weeks: 10,000-100,000 mIU/mL 6-8 Weeks: 15,000-200,000 mIU/mL 2-3 Months:10,000-100,000 mIU/mL Performed By: #### L 700.8000, L3100.5055, L3300.1750, L506.0400, L501.9520 #### [facility] [address] 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 Is patient in pain?: No Allergies latex Adverse Reaction (Verified 08/24/24 09:39) Rash Medications ???Medication ???Instructions ???Recorded ???Confirmed ???Type valacyclovir 500 mg tablet 500 mg PO BID 07/23/23 08/24/24 Hi story (Valtrex) Is last menstrual period known: Yes Last Menstrual Period: 04/20/24 Post menopausal: No Patient : No : No Do you think of yourself as: straight/heterosexua l Current gender identity: female PFSH Medical History Ventricular tachycardia Surgical History H/O breast biopsy Social History do you think of yourself as: straight/heterosexua l current gender identity: female Smoking Status: Never smoker alcohol intake: never substance use type: does not use caffeine: No what type of physical activity do you participate in: none seatbelt use: always do you feel safe at home: Yes additional social history: - Jason History 6 Elective abortions Hx Para 4 Spontaneous abortions Hx # Term Pregnancies Ectopic pregnancies Hx # Pregnancies Multiple births # of living children 4 Past Pregnancies Del. Date Name GA/Weeks Outcome Route Bth Weight Gen Labor Lgth Anesthesia Del Locatn Provider FOB Unknown July Unknown Myrna Unknown Trey Unknown Teresa HPI Encounter for routine gynecological examination Details: KAREN CHAMBERS is a 38 year old who presents for annual exam. last menses was in apr and multiple neg preg tests. last negative test was last week. menses were regular approx q 28-30 days prior to this. Has Lymes and sees physician in [place]-she feels like she is having a flair which may be affecting her menses. discussed labs and provera challenge, possible TVUS. Last PAP: 2022 History of abnormal PAP: no Last mammogram: Age 40 History of abnormal mammogram: na Colon cancer screening: Age 45 Other preventative health care screenings: physician in [place] Female Reproductive History Last Menstrual Period: 04/20/24 Cycle Length: 21-35 Bleeding Duration: 4 Questions: sexually active: Yes, dyspareunia: No and PCB: No ROS Const Constitutional: Reports system reviewed and no additional complaints, except as documented Cardio Card: Reports system reviewed and no additional complaints, except as documented Resp Resp: Reports system reviewed and no additional complaints, except as documented GI GI: Reports system reviewed and no additional complaints, except as documented : Reports system reviewed and no additional complaints, except as documented; Denies difficulty voiding, dysuria or urinary frequency Skin Skin/Breast: Reports system reviewed and no additional complaints, except as documented Neuro Neuro: Reports system reviewed and no additional complaints, except as documented Psych Psych: Reports system reviewed and no additional complaints, except as documented; Denies anhedonia, anxiety or depression Exam Const General: cooperative, healthy appearing, comfortable and no acute distress Orientation: alert, awake and oriented x3 Neck Neck: normal visual inspection and full ROM Thyroid: thyroid normal Chest Breast inspection: normal inspection of the breasts and normal inspection of the axillae Breast palpation: normal palpation of the breasts and normal palpation of the axillae Resp Effort Inspection: normal respiratory effort, able to speak in complete sentences and symmetric chest movement GI Inspection: normal to inspection Palpation: soft Rectal Exam: visual inspection normal External Female Exam: normal external appearance and normal appearance of the urethra Urethra: normal appearance of the urethra Speculum Exam - Vagina: normal appearance of the vagina and normal vaginal discharge Speculum Exam - Cervix: normal appearance of the cervix and nontender Bimanual Exam- Vagina Uterus: normal bimanual exam, normal palpation, uterine size normal, No tender and non-tender Bimanual Exam- Adnexa, other: normal Pelvic Support: normal Skin General: no rashes or lesions noted Neuro General: patient alert, pa (more content not included)... Normal [facility] No Panel Informationon 10-29 [employer] No Panel Informationon 06-18 [employer] No Panel Informationon 06-10 [employer] FOOT COMPLETE RTon 2 FOOT COMPLETE RT [place] [address] Patient: KAREN CHAMBERS Phone#: : 1985 Age: 36 Gender: F Pt. Type: Out Account: [id number] Location: 062 Ordering: ERIKA AMATO Exam Date: 02/03/2022/11:29 Family Phys: Charge Code: [id number] Physician: Ellsworth Order #: [id number] Dose#: PROCEDURE: X-RAY FOOT RT COMPLETE MIN 3 VIEWS COMPARISON: None. INDICATIONS: Pain FINDINGS: BONES: Nondisplaced fracture at the base of the 4th proximal phalanx. SOFT TISSUES: Negative. No visible soft tissue swelling. EFFUSION: None visible. OTHER: Negative. CONCLUSION: 1. Nondisplaced fracture of the base of the 4th proximal phalanx. Dictated by: Diane Loaiza MD on 02/03/2022 at 11:57 Approved by: Diane Loaiza MD on 02/03/2022 at 12:01 Normal [facility] CV ECHO COMPLETE CV ECHO [place] [address] Patient: KAREN CHAMBERS Phone#: : 1985 Age: 35 Gender: F Pt. Type: Out Account: [id number] Location: 062 Ordering: EDD VERDIN Exam Date: 10/23/2021/12:58 Family Phys: Charge Code: [id number] Physician: Ellsworth Order #: [id number] DLP Dose#: PROCEDURE: ECHOCARDIOGRAM WITH DOPPLER AND COLOR FLOW HISTORY: Patient is a 35-year-old female with tachycardia INDICATIONS: Tachycardia COMPARISON: None. TECHNIQUE: A 2-D ultrasound, color spectral Doppler and M-mode evaluation of the heart and great vessels. PATIENT MEASUREMENTS: Height (in.): 68 BSA: 1.7 Weight (lbs.): 128 BP: 121/70 Dinkey Driver: WILLY M MODE 2D MEASUREMENTS AND CALCULATIONS: LVIDd: 4.25 cm LVIDs: 2.61 cm IVSd: 0.90 cm LVPWd: 1.03 cm LVOT diam: 1.8 cm FS: 38.56 % Ao Root diam: 2.72 cm LA diam: 3.24 cm LA Volume Index: 26 mL/m2 LA A4 Area: 17.32 cm2 RA A4 Area: 9.3 cm2 RVDd: 2.68 cm TAPSE: DOPPLER MEASUREMENTS AND CALCULATIONS MITRAL MV E MAX lam: 1.18 m/s MV A MAX lam: 1.14 m/s MV E-A ratio: 1.04 Lat Peak E' Lam 14 cm/sec Continued Report - Page 2 of 3 Patient: KAREN CHAMBERS Phone#: : 1985 Age: 35 Gender: F Pt. Type: Out Account: [id number] Location: 062 Ordering: DED VERDIN Exam Date: 10/23/2021/12:58 Family Phys: Charge Code: [id number] Physician: Ellsworth Order #: [id number] DLP Dose#: Septal Peak E' LAM 70 cm/sec E/E' lateral 8 E/E' medial 7 AORTIC Ao V2 max: 1.52 m/s Ao max P.29 mm[Hg] LV V1 Max 1.44 m/s LV V1 Max PG 8.29 mm[Hg] PULMONIC PA V2 Max 1.09 m/s PA Max PG 4.79 mm[Hg] TRICUSPID TR Max Lam 1.97 m/s TR max PG 15.73 mm[Hg] RVSP 31 mm Hg 2D/M-MODE AND COLOR FLOW LEFT VENTRICLE: Left ventricle is normal in size and thickness. Systolic ejection fraction is 55-60%. There are no regional wall motion abnormality seen. WALL MOTION: 1 - Basal anterior: Normal. 7 - Mid anterior: Normal. 13 - Apical anterior: Normal. 2 - Basal anteroseptal: Normal. 8 - Mid anteroseptal: Normal. 14 - Apical septal: Normal. 3 - Basal inferoseptal: Normal. 9 - Mid inferoseptal: Normal. 15 - Apical inferior: Normal. 4 - Basal inferior: Normal. 10-Mid inferior: Normal. 16 - Apical lateral: Normal. 5 - Basal inferolateral: Normal. 11-Mid inferolateral: Normal. 6 - Basal anterolateral: Normal. 12-Mid anterolateral: Normal. RIGHT VENTRICLE: Right ventricle is normal in size and systolic function LEFT ATRIUM: Left atrium is normal in size. RIGHT ATRIUM: Right atrium is normal in size. ATRIAL SEPTUM: There is no large interatrial shunt seen. PFO was not assessed. MITRAL VALVE: There appears to be redundant mitral valve cord. Mitral valve leaflets appear normal in structure. There is trivial regurgitation and no stenosis seen TRICUSPID VALVE: Tricuspid valve appears normal in structure. There is trivial regurgitation and no stenosis seen AORTIC VALVE: Aortic valve is trileaflet. There is no regurgitation or stenosis seen PULMONIC VALVE: Pulmonic valve is inadequately visualized. Doppler shows no significant regurgitation or stenosis AORTIC ROOT: Aortic root is normal in size. AORTIC ARCH: Aortic arch is inadequately visualized DESC THORACIC AORTA: Inadequately visualized. Doppler shows normal systolic and diastolic flow Continued Report - Page 3 of 3 Patient: KAREN CHAMBERS Phone#: : 1985 Age: 35 Gender: F Pt. Type: Out Account: [id number] Location: [facility] Ordering: [facility] Exam Date: 10/23/2021/12:58 Family Phys: Charge Code: [id number] Physician: Ellsworth Order #: [id number] DLP Dose#: IVC/SVC: IVC is dilated with less than 50% collapse of inspiration. Estimated right atrial pressure is 15 mm Hg PULMONARY VEINS: Normal pulmonic vein flow PERICARDIUM: There is no pericardial effusion seen. CONCLUSION: 1. Left ventricle is normal in size and thickness. Systolic ejection fraction is 55-60% with normal wall motion. 2. There are no significant valvular dysfunction seen. 3. There appears to be redundant mitral cord 4. Right ventricle is normal in size and systolic function 5. Estimated right ventricular systolic pressure is 31 mm Hg. Dictated by: DAMON DUKE MD on 10/24/2021 at 12:12 Approved by: DAMON DUKE MD on 10/24/2021 at 12:22 Normal [facility] METANEPHRINES, PLASMA [CCL]o n 09-20-2021 Metanephrine, Plasma 75 pg/mL High [facility] Comment on above: Result Comment: Refe park Ranges: Hypertensive adult > or = 18 yrs old: 12-72 pg/mL Normotensive adult > or = 18 yrs old: 12-67 pg/mL Normotensive children < 18 yrs old: 10-95 pg/mL Performed By: #### 2 12647 #### [facility],[address] [place] [address] Normetanephrine, Fr Plas 91 pg/mL Normal 18-101 [facility] Comment on above: Result Comment: Refe rence Ranges: Hypertensive adult > or = 18 yrs old: 24-145 pg/mL Normotensive adult > or = 18 yrs old: 18-101 pg/mL Normotensive children < 18 yrs old: 22-83 pg/mL Methyldopa may cause false elevation of normetanephrine levels in this assay. If patient is on methyldopa, interpret results with caution. This test was developed and its performance characteristics determined by [facility]'s [facility]ology [facility] [place] ([facility]). It has not been cleared or approved by the FDA. [facility] is regulated under CLIA as qualified to perform high-complexity testing. This test is used for clinical purposes. It should not be regarded as investigational or for research. [facility] [place] [address] Peng Elena III, M.D. [id number] Performed By: #### 2 14061 #### [facility],[address] [place], [place] [address] CATECHOLAMINES,FRACTIONATED, URINE [CCL]on 09-13-2021 Catecholamines, UrineInterp See Note Normal [facility] Comment on above: Result Comment: TEST INFORMATION: Catecholamines Fractionated, Urine Free Smaller increases in catecholamine concentrations (less than two times the upper limit) usually are the result of physiological stimuli, drugs, or improper specimen collection. Significant elevation of one or more catecholamines (three or more times the upper reference limit) is associated with an increased probability of a neuroendocrine tumor. Access complete set of age- and/or gender-specific reference intervals for this test in the [facility] ([employer]). This test was developed and its performance characteristics determined by [employer]. It has not been cleared or approved by the US Food and Drug Administration. This test was performed in a CLIA certified laboratory and is intended for clinical purposes. [facility] [place] [address] Peng Elena III, M.D. [id number] Performed By: #### 2 05404 #### [facility],[address] [place] [address] Creatinine Ur, per 24h 1197 mg/d Normal 700-1600 [facility] Comment on above: Result Comment: Perf ormed by [employer], [address] [place] [address],[place] [address] [email or web address], Valorie Moody MD, Lab. Director Performed By: #### 2 42200 #### [facility],[address] [place] [address] Creatinine Ur, per volume 35 mg/dL Normal [facility] Comment on above: Performed By: #### 2 31036 #### [address] [address] Dopamine, Urine per 24hour 233 ug/d Normal 71-485 [facility] Comment on above: Result Comment: REFE RENCE INTERVAL: Dopamine, Urine - ug/d Access complete set of age- and/or gender-specific reference intervals for this test in the [facility] ([employer]). Performed By: #### 2 92685 #### [facility],[address] [place] [address] Dopamine, Urine pervolume 68 ug/L Normal [facility] Comment on above: Performed By: #### 2 50096 #### [facility],[address] [place] [address] Dopamine, Urine ratio toCRT 194 ug/g SOFTWARE CONFIGURATION SPECIALIST Normal 0-250 [facility] Comment on above: Performed By: #### 2 67395 #### [facility],[address] [place] [address] Epinephrine, Urine [id number] 7 ug/d Normal 1-14 [facility] Comment on above: Result Comment: REFE RENCE INTERVAL: Epinephrine, Urine - ug/d Access complete set of age- and/or gender-specific reference intervals for this test in the [facility] Test [facility] ([place]). Performed By: #### 2 22668 #### [facility],[address] [place] [address] Epinephrine, Urine pervolume 2 ug/L Normal [facility] Comment on above: Performed By: #### 2 75573 #### [facility],[address] [place] [address] Epinephrine, Urine ratioto SOFTWARE CONFIGURATION SPECIALIST 6 ug/g SOFTWARE CONFIGURATION SPECIALIST Normal 0-20 [facility] Comment on above: Performed By: #### 2 29219 #### [place] [id number] Hours Collected 24 hr Normal [facility] Comment on above: Result Comment: Per 24h calculations are provided to aid interpretation for collections with a duration of 24 hours and an average daily urine volume. For specimens with notable deviations in collection time or volume, ratios of analytes to a corresponding urine creatinine concentration may assist in result interpretation. Performed By: #### 2 16897 #### [address] [address] Norepinephrine, Urineper 24hr 34 ug/d Normal 14-120 [facility] Comment on above: Result Comment: REFE RENCE INTERVAL: Norepinephrine, Urine - ug/d Access complete set of age- and/or gender-specific reference intervals for this test in the [facility] Test [facility] ([employer]). Performed By: #### 2 54867 #### [facility],[address] [place] [address] Norepinephrine, Urineper volume 10 ug/L Normal [facility] Comment on above: Performed By: #### 2 67997 #### [facility],[address] [place] [address] Norepinephrine, Urineratio to SOFTWARE CONFIGURATION SPECIALIST 29 ug/g SOFTWARE CONFIGURATION SPECIALIST Normal 0-45 [facility] Comment on above: Performed By: #### 2 99767 #### [facility],[address] [place] [address] Total Volume 3420 mL Normal [facility] Comment on above: Performed By: #### 2 61855 #### [facility],[address] [place] [address] METANEPHRINES, URINE 24 HR [ CCL]on 09-13-2021 Metanephrines,Urine 181 ug/24 hr Normal 52-341 [facility] Comment on above: Performed By: #### 2 00356 #### [facility],[address] [place] [address] NORMETANEPHRINES, UR 267 ug/24 hr Normal 88-444 [facility] Comment on above: Performed By: #### 2 13637 #### [facility],[address] [place] [address] Period (HRS) 24 hours Normal [facility] Comment on above: Result Comment: [facility] [address] [place] [address] Peng Elena III, M.D. [id number] Performed By: #### 2 66398 #### [facility],[address] [place] [address] Total Metanephrines 448 ug/24 hr Normal 140-785 [facility] Comment on above: Result Comment: This test was developed and its performance characteristics determined by [facility]'s [facility] [place] (-[facility]). It has not been cleared or approved by the FDA. [facility] is regulated under CLIA as qualified to perform high-complexity testing. This test is used for clinical purposes. It should not be regarded as investigational or for research. Performed By: #### 2 99208 #### [facility],[address] [place] [address] Volume (ML) 3420 mL Normal [facility] Comment on above: Performed By: #### 2 98144 #### [facility],[address] [place] [address] No Panel Informationon 09-05 Metanephrine, Plasma 75 pg/mL Abnormal 12 - 67 pg/mL H [facility].; [facility], [facility]. Work Phone: Normetanephrine, Fr Plas 91 pg/mL Normal 18 - 101 pg/mL [facility].; [facility] Work Phone: Laboratory - Chemistry and C hemistry - challengeon 09-04-2021 Creatinine [Mass/Vol] 35 mg/dL Normal [facility].; [facility] No Panel Informationon 09-04 Catecholamines, UrineInterp See Note Normal [facility]; [facility], [employer] Creatinine Ur, per 24h 1197 mg/d Normal 700 - 1600 mg/d [facility].; [facility]. Dopamine, Urine per 24hour 233 ug/d Normal 71 - 485 ug/d [facility].; [place] [employer]. Dopamine, Urine pervolume 68 ug/L Normal [facility].; [facility]. Dopamine, Urine ratio toCRT 194 {ug/g_CRT} Normal 0 - 250 {ug/g_CRT} [facility].; [place] [employer], [employer]. Epinephrine, Urine uiw95iu 7 ug/d Normal 1 - 14 ug/d [facility].; [place] [employer], [employer]. Epinephrine, Urine pervolume 2 ug/L Normal [facility].; [place] [employer], [employer]. Epinephrine, Urine ratioto SOFTWARE CONFIGURATION SPECIALIST 6 {ug/g_CRT} Normal 0 - 20 {ug/g_CRT} [facility].; [place] [employer], [employer]. Hours Collected 24 {hr} Normal [facility].; [place] [employer] [facility] Metanephrines,Urine 181 {ug/24_hr} Normal 52 - 3 41 {ug/24_hr} [facility].; [place] [employer]. Norepinephrine, Urineper 24hr 34 ug/d Normal 14 - 120 ug/d [place] [employer] Norepinephrine, Urineper volume 10 ug/L Normal [employer], [employer] Norepinephrine, Urineratio to SOFTWARE CONFIGURATION SPECIALIST 29 {ug/g_CRT} Normal 0 - 45 {ug/g_CRT} [place] [employer] NORMETANEPHRINES, UR 267 {ug/24_hr} Normal 88 - 444 {ug/24_hr} [place] [employer] Period (HRS) 24 {hours} Normal [facility], [employer].; [employer] Total Metanephrines 448 {ug/24_hr} Normal 140 - 785 {ug/24_hr} [place] [employer], [employer].; [employer] Total Volume 3420 mL Normal [facility], [employer].; [employer] [employer], [employer]. Volume (ML) 3420 mL Normal [employer] [employer], [employer]. CBC (INCLUDES DIFF/PLT)on Basophils (Bld) [#/Vol] 0.009 10*3/uL Normal 0-200 [facility] Comment on above: Performed By: #### 3 8579, 95124, 9398 #### [facility] [place] [address] Air Bag Curer: Mahesh Dotson MD Basophils/100 WBC (Bld) 0.2 % Normal [facility] Comment on above: Performed By: #### 3 5570, 65868, 4814 #### [facility] [address] Air Bag Curer: Mahesh Dotson MD Eosinophils (Bld) [#/Vol] 0.16 10*3/uL Normal 15-500 [facility] Comment on above: Performed By: #### 3 2046, 70478, 8922 #### [facility] [address] Air Bag Curer: Mahesh Dotson MD Eosinophils/100 WBC (Bld) 3.4 % Normal [facility] Comment on above: Performed By: #### 3 6126, , 6399 #### [facility] of [place] [address] [employer] Bag Curer: Mahesh Dotson MD Erythrocyte distribution width (RBC) [Ratio] 12.0 % Normal 11.0-15.0 [facility] Comment on above: Performed By: #### 3 6126, , 6399 #### [facility] of [place] [address] Air Bag Curer: Mahesh Dotson MD Hematocrit (Bld) [Volume fraction] 45.1 % High 35.0-45.0 [facility] Comment on above: Performed By: #### 3 6126, , 6399 #### [facility] of [place] [address] Air Bag Curer: Mahesh Dotson MD Hemoglobin (Bld) [Mass/Vol] 14.9 g/dL Normal 11.7-15.5 [facility] Comment on above: Performed By: #### 3 6126, , 6399 #### [facility] of [place] [address] Air Bag Curer: Mahesh Dotson MD Lymphocytes (Bld) [#/Vol] 1.889 10*3/uL Normal 850-3900 [facility] Comment on above: Performed By: #### 3 6126, , 6399 #### [facility] of [place] [address] Air Bag Curer: Mahesh Dotson MD Lymphocytes/100 WBC (Bld) 40.2 % Normal [facility] Comment on above: Performed By: #### 3 6126, , 6399 #### [facility] of [place] [address] Air Bag Curer: Mahesh Dotson MD MCH (RBC) [Entitic mass] 29.6 pg Normal 27.0-33.0 [facility] Comment on above: Performed By: #### 3 6126, , 6399 #### [facility] of [address], [address] [place] [place] [address] Air Bag Curer: Mahesh Dotson MD MCHC (RBC) [Mass/Vol] 33.0 g/dL Normal 32.0-36.[address] [facility] Comment on above: Performed By: #### 3 61, [id number], 6399 #### [facility] of [address], [address] [place] [address] Air Bag Curer: Mahesh Dotson MD MCV (RBC) [Entitic vol] 89.7 fL Normal 80.0-100.0 [facility] Comment on above: Performed By: #### 3 6126, , 6399 #### [facility] of [place] [address] Air Bag Curer: Mahesh Dotson MD Monocytes (Bld) [#/Vol] 0.273 10*3/uL Normal 200-950 [facility] Comment on above: Performed By: #### 3 6126, , 6399 #### [facility] of [place] [address] Air Bag Curer: Mahesh Dotson MD Monocytes/100 WBC (Bld) 5.8 % Normal [facility] Comment on above: Performed By: #### 3 6126, 65261, 6399 #### [facility] of [place] [address] Air Bag Curer: Mahesh Dotson MD Neutrophils (Bld) [#/Vol] 2.369 10*3/uL Normal 8442-2426 [facility] Comment on above: Performed By: #### 3 6126, 48496, 6399 #### [facility] of [place] [address] [employer] Bag Curer: Mahesh Dotson MD Neutrophils/100 WBC (Bld) 50.4 % Normal [facility] Comment on above: Performed By: #### 3 6126, 74457, 6399 #### [facility] of [address] [place] [address] Air Bag Curer: Mahesh Dotson MD Platelet mean volume (Bld) [Entitic vol] 11.2 fL Normal 7.5-12.5 [facility] Comment on above: Performed By: #### 3 6127, 98050, 6399 #### [facility] of [place] [address] [employer] Bag Curer: Mahesh Dotson MD Platelets (Bld) [#/Vol] 156 10*3/uL Normal 140-400 [facility] Comment on above: Performed By: #### 3 6126, 90112, 6399 #### [facility] of [place] [address] [employer] Bag Curer: Mahesh Dotson MD RBC (Bld) [#/Vol] 5.03 10*6/uL Normal 3.80-5.10 [facility] Comment on above: Performed By: #### 3 6126, , 6399 #### [facility] of [place] [address] Air Bag Curer: Mahesh Dotson MD WBC (Bld) [#/Vol] 4.7 10*3/uL Normal 3.8-10.8 [facility] Comment on above: Performed By: #### 3 61, 10016, 6399 #### [facility] of [place] [address] Air Bag Curer: Mahesh Dotson MD [facility] [facility] 08-27-2021 Albumin [Mass/Vol] 4.8 g/dL Normal 3.6-5.1 [facility] Comment on above: Performed By: #### 3 61, 17744, 6399 #### [facility] of [place] [address] Air Bag Curer: Mahesh Dotson MD Albumin/Globulin [Mass ratio] 1.9 {ratio} Normal 1.0-2.5 [facility] Comment on above: Performed By: #### 3 6126, 33413, 6399 #### [facility] of [address], [address] [place] [address] Air Bag Curer: Mahesh Dotson MD ALP [Catalytic activity/Vol] 27 U/L Low 31-125 [facility] Comment on above: Performed By: #### 3 6127, 20229, 6399 #### [facility] of [address], [address] [place] [address] Air Bag Curer: Mahesh Dotson MD ALT [Catalytic activity/Vol] 20 U/L Normal 6-29 [facility] Comment on above: Performed By: #### 3 6127, 20388, 6399 #### [facility] of [address], [address] [place] [address] Air Bag Curer: Mahesh Dotson MD AST [Catalytic activity/Vol] 18 U/L Normal 10-30 [facility] Comment on above: Performed By: #### 3 61, 90216, 6399 #### [facility] of [address], [address] [place] [address] Air Bag Curer: Mahesh Dotson MD Bilirubin [Mass/Vol] 1.5 mg/dL High 0.2-1.2 Ques t Diagnostics Comment on above: Performed By: #### 3 6127, 89331, 6399 #### [facility] of [place] [address] Air Bag Curer: Mahesh Dotson MD BUN/CREATININE RATIO NOT APPLICABLE Normal 6-22 [facility] Comment on above: Performed By: #### 3 6127, 47791, 6399 #### [facility] of [place] [address] Air Bag Curer: Mahesh Dotson MD Calcium [Mass/Vol] 9.9 mg/dL Normal 8.6-10.2 [facility] Comment on above: Performed By: #### 3 61, 22441, 6399 #### [facility] of [place] [address] Air Bag Curer: Mahesh Dotson MD Chloride [Moles/Vol] 105 mmol/L Normal 98-110 Ques t [facility] Comment on above: Performed By: #### 3 6127, 20044, 6399 #### [facility] of [place] [address] Air Bag Curer: Mahesh Dotson MD CO2 [Moles/Vol] 26 mmol/L Normal 20-32 [facility] Comment on above: Performed By: #### 3 6127, 83937, 6399 #### [facility] of [address], [address] [place] [address] Air Bag Curer: Mahesh Dotson MD Creatinine [Mass/Vol] 0.76 mg/dL Normal 0.50-1.[address] [facility] Comment on above: Performed By: #### 3 6127, 45163, 6399 #### [facility] of [address], [address] [place] [address] Air Bag Curer: Mahesh Dotson MD eGFR NON-AFR. PORTUGUESE 102 mL/min/1.73m2 Normal > OR = 60 [facility] Comment on above: Performed By: #### 3 61, 33274, 6399 #### [facility] of [place] [address] Air Bag Curer: Mahesh Dotson MD GFR/1.73 sq M.predicted among blacks MDRD (S/P/Bld) [Vol rate/Area] 118 mL/min/{1.73_m2} Normal > OR = 60 [facility] Comment on above: Performed By: #### 3 6127, 49897, 6399 #### [facility] of [place] [address] Air Bag Curer: Mahesh Dotson MD Globulin (S) [Mass/Vol] 2.5 g/dL Normal 1.9-3.7 [facility] Comment on above: Performed By: #### 3 6127, 17375, 6399 #### [facility] of [place] [address] Air Bag Curer: Mahesh Dotson MD Glucose [Mass/Vol] 102 mg/dL High 65-99 [facility] Comment on above: Result Comment: Fasting reference interval For someone without known diabetes, a glucose value between 100 and 125 mg/dL is consistent with prediabetes and should be confirmed with a follow-up test. Performed By: #### 3 61, 65441, 6399 #### [facility] [place] [address] Air Bag Curer: Mahesh Dotson MD Potassium [Moles/Vol] 4.2 mmol/L Normal 3.5-5.3 [facility] Comment on above: Performed By: #### 3 6126, 45417, 6399 #### [facility] [place] [address] Air Bag Curer: Mahesh Dotson MD Protein [Mass/Vol] 7.3 g/dL Normal 6.1-8.1 [facility] Comment on above: Performed By: #### 3 6126, 16617, 6399 #### [facility] [place] [address] Air Bag Curer: Mahesh Dotson MD Sodium [Moles/Vol] 140 mmol/L Normal 135-146 [facility] Comment on above: Performed By: #### 3 61, 96301, 6399 #### [facility] [place] [address] Air Bag Curer: Mahesh Dotson MD Urea nitrogen [Mass/Vol] 15 mg/dL Normal 7-25 [facility] Comment on above: Performed By: #### 3 61, 95146, 6399 #### [facility] [place] [address] Air Bag Curer: Mahesh Dotson MD CORTISOL, TOTALon 08-27-2021 CORTISOL, TOTAL 24.1 mcg/dL [facility] [employer] Comment on above: Result Comment: Refe rence Range: For 8 a.m.(7-9 a.m.) Specimen: 4.0-22.0 Reference Range: For 4 p.m.(3-5 p.m.) Specimen: 3.0-17.0 * Please interpret above results accordingly * Performed By: #### 3 6127, 12475, 6399 #### [facility] [address], [address] [place], [place] [address] Air Bag Curer: Mahesh Dotson MD TSH W/REFLEX TO FT4on 2021 TSH W/REFLEX TO FT4 1.29 mIU/L Normal [facility] Comment on above: Result Comment: Refe rence Range > or = 20 Years 0.40-4.50 Ranges First trimester 0.26-2.66 Second trimester 0.55-2.73 Third trimester 0.43-2.91 Performed By: #### 3 6127, 81878, 6399 #### [facility] [address], [address] [place] [address] Air Bag Curer: Mahesh Dotson MD Laboratory - Chemistry and C hemistry - challengeon 08-26-2021 Albumin [Mass/Vol] 4.8 g/dL Normal 3.6 - 5.1 g/dL [facility], [facility].; [place], [facility]. Albumin/Globulin [Mass ratio] 1.9 {ratio} Normal 1.0 - 2.5 [facility], [facility].; [place] [facility], [facility]. ALP [Catalytic activity/Vol] 27 U/L Abnormal 31 - 125 U/L [facility], [facility].; [place] [facility], [facility]. ALT [Catalytic activity/Vol] 20 U/L Normal 6 - 29 U/L [facility], [facility].; [place], [facility]. AST [Catalytic activity/Vol] 18 U/L Normal 10 - 30 U/L [place] [facility], [facility].; [facility], [facility]. Bilirubin [Mass/Vol] 1.5 mg/dL Abnormal 0.2 - 1 .2 mg/dL [facility], [facility].; [facility], [facility]. Calcium [Mass/Vol] 9.9 mg/dL Normal 8.6 - 10. 2 mg/dL [facility], [facility].; [facility], [facility]. Chloride [Moles/Vol] 105 mmol/L Normal 98 - 11 0 mmol/L [facility], [facility].; [facility], [facility]. CO2 [Moles/Vol] 26 mmol/L Normal 20 - 32 mmol/L [facility]; [facility], [facility] Creatinine [Mass/Vol] 0.76 mg/dL Normal 0.50 - 1.10 mg/dL [facility]; [facility], [facility] GFR/1.73 sq M.predicted among blacks MDRD (S/P/Bld) [Vol rate/Area] 118 mL/min/{1.73_m2} Normal [facility]; [facility], [facility] Glucose [Mass/Vol] 102 mg/dL Abnormal 65 - 99 mg/dL [facility]; [facility], [facility] Potassium [Moles/Vol] 4.2 mmol/L Normal 3.5 - 5.3 mmol/L [facility]; [facility], [facility] Protein [Mass/Vol] 7.3 g/dL Normal 6.1 - 8.1 g/dL [facility]; [facility], [facility] Sodium [Moles/Vol] 140 mmol/L Normal 135 - 146 mmol/L [facility]; [facility], [facility] Urea nitrogen [Mass/Vol] 15 mg/dL Normal 7 - 25 mg/dL [facility]; [facility], [facility] Laboratory - Hematology and Cell countson 08-26-2021 Basophils (Bld) [#/Vol] 0.009 10*3/uL Normal 0 - 200 {cells/uL} [facility]; [facility] Basophils/100 WBC (Bld) 0.2 % Normal [facility]; [facility], [facility] Eosinophils (Bld) [#/Vol] 0.16 10*3/uL Normal 15 - 500 {cells/uL} [facility]; [facility], [facility] Eosinophils/100 WBC (Bld) 3.4 % Normal [facility]; [facility], [facility] Erythrocyte distribution width (RBC) [Ratio] 12.0 % Normal 11.0 - 15.0 % [facility]; [facility], [facility] Hematocrit (Bld) [Volume fraction] 45.1 % Abnormal 35.0 - 45.0 % [facility], [facility]. Hemoglobin (Bld) [Mass/Vol] 14.9 g/dL Normal 11.7 - 15.5 g/dL [facility].; [facility], [facility]. Lymphocytes (Bld) [#/Vol] 1.889 10*3/uL Normal 850 - 3900 {cells/uL} [facility].; [facility], [facility]. Lymphocytes/100 WBC (Bld) 40.2 % Normal [facility].; [facility], [facility]. MCH (RBC) [Entitic mass] 29.6 pg Normal 27.0 - 33.0 pg [facility].; [facility], [facility]. MCHC (RBC) [Mass/Vol] 33.0 g/dL Normal 32.0 - 36.0 g/dL [facility], [facility].; [facility], [facility]. MCV (RBC) [Entitic vol] 89.7 fL Normal 80.0 - 100.0 fL [facility].; [facility], [facility]. Monocytes (Bld) [#/Vol] 0.273 10*3/uL Normal 200 - 950 {cells/uL} [facility], [facility].; [facility], [facility]. Monocytes/100 WBC (Bld) 5.8 % Normal [facility], [facility].; [facility], [facility]. Neutrophils (Bld) [#/Vol] 2.369 10*3/uL Normal 1500 - 7800 {cells/uL} [facility], [facility].; [facility], [facility]. Neutrophils/100 WBC (Bld) 50.4 % Normal [facility].; [facility], [facility]. Platelet mean volume (Bld) [Entitic vol] 11.2 fL Normal 7.5 - 12.5 fL [facility], [facility].; [facility], [facility]. Platelets (Bld) [#/Vol] 156 10*3/uL Normal 140 - 400 [facility], [facility].; [facility], [facility]. RBC (Bld) [#/Vol] 5.03 10*6/uL Normal 3.80 - 5.1 0 {Million/uL} [facility]; [facility] WBC (Bld) [#/Vol] 4.7 10*3/uL Normal 3.8 - 10.8 [facility]; [facility] No Panel Informationon 08-26 BUN/CREATININE RATIO NOT APPLICABLE Normal 6 - 22 [facility]; [facility] CORTISOL, TOTAL 24.1 ug/dL Abnormal [facility]; [facility] eGFR NON-AFR. PORTUGUESE 102 Normal [facility]; [facility] GLOBULIN 2.5 Normal 1.9 - 3.7 [facility]; [facility] TSH W/REFLEX TO FT4 1.29 {mIU/L} Normal [facility]; [facility] Lyme Ab Panel [employer]oton 2020 Lyme IgG Bands p93,p41,p23 Normal [facility] Comment on above: Performed By: #### L YMEWB #### [facility] [address] [place] [address] Lyme IgG WBlot NEGAT Normal Negative [facility] Comment on above: Performed By: #### L YMEWB #### [facility] [address] [place] [address] Lyme IgM Bands p41,p23 Normal [facility] Comment on above: Performed By: #### L YMEWB #### [facility] [address] [place], [place] [address] Lyme IgM WBlot POSIT Abnormal Negative [facility] Comment on above: Performed By: #### L YMEWB #### [facility] [address] [place], [place] [address] Lyme Interp Normal [facility] Comment on above: Result Comment: IgM antibodies against Borrelia burgdorferi are present on Western Blot, but Send out to a reference laboratory may be needed should there be a suspicion of Lyme disease acquisition in [place]. Clinical and epidemiological correlation required. IgG antibodies were not detected. This pattern can be seen in the early stages Send out to a reference laboratory may be needed should there be a suspicion of Lyme disease acquisition in [place]. Clinical and epidemiological correlation required. of infection with Borrelia burgdorferi. However, this pattern could also be Send out to a reference laboratory may be needed should there be a suspicion of Lyme disease acquisition in [place]. Clinical and epidemiological correlation required. caused by a false-positive result in the IgM Western blot, particularly if Send out to a reference laboratory may be needed should there be a suspicion of Lyme disease acquisition in [place]. Clinical and epidemiological correlation required. there is no history of recent exposure. If clinically indicated, a repeat Send out to a reference laboratory may be needed should there be a suspicion of Lyme disease acquisition in [place]. Clinical and epidemiological correlation required. serology in 4-6 weeks to evaluate patient for the development of IgG antibodies Send out to a reference laboratory may be needed should there be a suspicion of Lyme disease acquisition in [place]. Clinical and epidemiological correlation required. may be helpful. Clinical correlation is necessary. Current Lyme IgG immunoblot Send out to a reference laboratory may be needed should there be a suspicion of Lyme disease acquisition in [place]. Clinical and epidemiological correlation required. banding pattern and intensity does not meet CDC criteria or newspaper copy editor. Faint Send out to a reference laboratory may be needed should there be a suspicion of Lyme disease acquisition in [place]. Clinical and epidemiological correlation required. diagnostic bands were observed suggestive of either recent B. burgdorferi Send out to a reference laboratory may be needed should there be a suspicion of Lyme disease acquisition in [place]. Clinical and epidemiological correlation required. infection treated very early OR remote past B. burgdorferi infection. Send out to a reference laboratory may be needed should there be a suspicion of Lyme disease acquisition in [place]. Clinical and epidemiological correlation required. Performed By: #### L YMEWB #### [facility] [address] [place] [id number] LYME EARLY <=30 DAYSon 11-12 Lyme IgG/IgM AB Positive Abnormal Negative [facility] Comment on above: Performed By: #### L YMEWB #### [facility] [address] [place], [place] [address] Laboratory - Chemistry and C hemistry - challengeon 11-08-2020 Albumin [Mass/Vol] 3.8 g/dL Normal 3.4 - 5.0 g/dL [facility]; [facility] Albumin [Mass/Vol] 1.1 g/dL Normal 0.9 - 1.6 [facility]; [facility] ALP [Catalytic activity/Vol] 69 U/L Normal 46 - 116 U/L [facility]; [facility] ALT [Catalytic activity/Vol] 59 U/L Normal 14 - 59 U/L [facility]; [facility] ALT No additional P-5'-P [Catalytic activity/Vol] 59 U/L Normal 14 - 59 U/L [facility]; [facility], [facility] Anion gap [Moles/Vol] 15 mmol/L Normal 10 - 20 mmol/L [facility]; [facility], [facility] AST [Catalytic activity/Vol] 42 U/L Abnormal 13 - 39 U/L [facility]; [facility] Bilirubin [Mass/Vol] 0.8 mg/dL Normal 0.2 - 1 .0 mg/dL [facility]; [facility], [facility] Bilirubin [Mass/Vol] Negative Normal [facility]; [facility], [facility] Bilirubin Ql (U) Negative Normal [facility]; [facility], [facility] Calcium [Mass/Vol] 8.9 mg/dL Normal 8.5 - 10. 1 mg/dL [facility]; [facility], [facility] Chloride [Moles/Vol] 101 mmol/L Normal 98 - 10 7 mmol/L [facility]; [facility], [facility] CO2 [Moles/Vol] 28.6 mmol/L Normal 21.0 - 32.0 mmol/L [facility]; [facility], [facility] Comprehensive metabolic 2000 panel CMP with eGFR Normal [facility]; [facility], [facility] Creatinine [Mass/Vol] 0.68 mg/dL Normal 0.55 - 1.02 mg/dL [facility]; [facility] [employer]. CRP [Mass/Vol] 13.50 mg/dL Abnormal 0.00 - 0.90 mg/dL [facility].; [place] [facility], [facility]. GFR/1.73 sq M.predicted among blacks MDRD (S/P/Bld) [Vol rate/Area] mL/min/{1.73_m2} Normal 60 - 999 {ML/MINUTE} [facility], [facility].; [place] [facility], [facility]. GFR/1.73 sq M.predicted MDRD (S/P/Bld) [Vol rate/Area] mL/min/{1.73_m2} Normal 60 - 999 {ML/MINUTE} [facility], [facility].; [place], [employer] Globulin (S) [Mass/Vol] 3.6 g/dL Normal 1.5 - 3.8 g/dL [facility], [facility].; [place], [employer] Glucose [Mass/Vol] 95 mg/dL Normal 74 - 106 mg/dL [facility].; [place] Glucose [Mass/Vol] NORM Normal [facility].; [place], [employer] Ketones Ql (U) Negative Normal [facility].; [place] [facility], [employer]. pH (Bld) 8 [pH] Normal [facility].; [place], [employer]. pH (U) 5.5 [pH] Normal [facility], [facility].; [place], [employer] Potassium [Moles/Vol] 4.0 mmol/L Normal 3.5 - 5.1 mmol/L [facility], [facility].; [facility] Protein [Mass/Vol] 7.4 g/dL Normal 6.4 - 8.2 g/dL [facility].; [place], [employer] Protein [Mass/Vol] 100 g/dL Abnormal [facility] [email or web address] [facility].; [place] Sodium [Moles/Vol] 141 mmol/L Normal 136 - 145 mmol/L [facility], [facility].; [employer] Specific gravity (U) [Rel density] <1.005 Normal [facility]; [facility], [facility] Urea nitrogen [Mass/Vol] 8 mg/dL Normal 7 - 18 mg/dL [facility]; [facility], [facility] Urea nitrogen/Creatinine [Mass ratio] 12 {ratio} Normal 0 - 30 {ratio} [facility]; [facility], [facility] Urobilinogen Qn (U) 0.2 mg/dL Normal [facility]; [facility] Laboratory - Hematology and Cell countson 11-08-2020 Basophils (Bld) [#/Vol] 0.00 {3/UL} Normal 0.00 - 0.10 {3/UL} [facility]; [facility], [facility] Basophils/100 WBC (Bld) 0.4 % Normal 0.0 - 2.0 % [facility]; [facility], [facility] CBC W Auto Differential panel (Bld) CBC + DIFF Normal [facility]; [facility] Eosinophils (Bld) [#/Vol] 0.00 {3/UL} Normal 0.00 - 0.50 {3/UL} [facility]; [facility], [facility] Eosinophils/100 WBC (Bld) 0.7 % Normal 0.0 - 7.0 % [facility]; [facility], [facility] Erythrocyte distribution width (RBC) [Ratio] 13.0 % Normal 12.0 - 15.6 % [facility]; [facility], [facility] ESR (Bld) [Velocity] 8 mm/h Normal 0 - 30 mm/h [facility]; [facility], [facility] Hematocrit (Bld) [Volume fraction] 40.3 % Normal 34.0 - 46.0 % [facility]; [facility], [facility] Hemoglobin (Bld) [Mass/Vol] 13.7 g/dL Normal 12.0 - 16.0 g/dL [facility].; [facility], [facility] Hemoglobin Ql (U) large Abnormal [facility]; [facility], [facility] Lymphocytes (Bld) [#/Vol] 0.40 {3/UL} Abnormal 0.80 - 2.80 {3/UL} [facility], [employer], [employer] Lymphocytes/100 WBC (Bld) 11.5 % Abnormal 20.0 - 45.0 % [facility], [employer] MCH (RBC) [Entitic mass] 30 pg Normal 27 - 33 pg [facility] [employer] [employer] MCHC (RBC) [Mass/Vol] 34 {X10_3} Normal 32 - 3 6 {X10_3} [employer] MCV (RBC) [Entitic vol] 87 fL Normal 80 - 99 fL [facility], [employer] Monocytes (Bld) [#/Vol] 0.30 {3/UL} Normal 0.20 - 1.00 {3/UL} [employer] [employer] [employer] Monocytes/100 WBC (Bld) 8.9 % Normal 0.0 - 10.0 % [facility] [employer] Morphology [place]o (Bld) [Interp] N/A Normal [facility].; [employer] Neutrophils (Bld) [#/Vol] 2.70 {3/UL} Normal 1.50 - 7.10 {3/UL} [employer] [employer] Neutrophils/100 WBC (Bld) 78.5 % Abnormal 46.0 - 76.0 % [facility].; [employer] Platelet mean volume (Bld) [Entitic vol] 9.2 fL Normal 6.6 - 10.5 fL [employer] Platelets (Bld) [#/Vol] 121 {3/UL} Abnormal 150 - 450 {3/UL} [employer], [employer] [facility] RBC (Bld) [#/Vol] 4.64 {6/UL} Normal 4.10 - 5.3 0 {6/UL} [employer] WBC (Bld) [#/Vol] 3.4 {3/UL} Abnormal 4.5 - 10.8 {3/UL} [facility] WBC (Bld) [#/Vol] 25 10*3/uL Abnormal [facility] Laboratory - Microbiology an d Antimicrobial susceptibilityon 11-08-2020 B. burgdorferi Ab (S) [Interp] Positive Abnormal [facility]; [facility]. B. burgdorferi IgG+IgM Qn (S) LYME EARLY (SIGNS/SYMP <=30 DAYS) [CCL] Normal [facility]; [place] Work Phone: Bacteria identified Cx Nom (U) CULTURE URINE Normal [facility] [employer]; [facility] Bacteria identified Cx Nom (Unsp spec) NONE Normal [facility].; [facility]. SARS-CoV-2 (COVID-19) RNA JOSTIN+probe Ql (Unsp spec) Negative Normal [facility]; [facility]. Laboratory - Specimen inform ationon 11-08-2020 Appearance (U) clear Normal [facility] [employer]; [facility]. Clarity (U) clear Normal [facility].; [facility]. Color (U) red Normal [facility] [employer] [facility]. Specimen type Nom (Spec) Clean catch Normal [place]; [facility]. Laboratory - Urinalysison Crystals LM Nom (Urine sed) NONE Normal [facility].; [facility]. Glucose Test strip (U) [Mass/Vol] Negative Normal [facility].; [facility]. Leukocyte esterase Test strip Ql (U) trace Normal [facility].; [facility]. Nitrite Ql (U) Negative Normal [facility] [employer].; [facility]. Protein Ql (U) 100 mg/dL Abnormal [facility] [employer].; [facility]. Urinalysis dipstick W Reflex Microscopic panel (U) URINALYSIS WITH MICROSCOPY Normal [facility].; [place] Yeast LM Ql (Urine sed) NONE Normal [facility].; [facility]. No Panel Informationon 11-08 AGE 34 {years} Normal [facility]. Amorphous NONE Normal [facility].; [facility]. Blood 250 Abnormal [facility].; [facility]. Casts NONE Normal [facility].; [facility]. Epi Cells OCC Normal [facility].; [facility]. Ketone Negative Normal [facility].; [facility]. MANUAL DIFF N/A Normal [facility].; [facility]. Mucous NONE Normal [facility].; [facility]. Rbc TNTC Normal 0 - 3 [place]; [facility]. SEND TO PHARMACY? NO Normal [facility].; [facility]. Sp [place]ola 1.010 Normal [facility].; [facility]. Urobilinog NORM Normal [place]; [facility]. Wbc 1-5 Normal 0 - 5 [facility].; [facility]. Final Surgical Pathology Rep apolinar 11-19-2018 Final Surgical Pathology Report . Pathology Reports Accession: Collected Date/Time: Received Date/Time: Pathologist: [id number] 11/17/2018 08:00 EDT 11/18/2018 08:00 EDT DO GARRY SUAREZ Final Surgical Pathology Report DIAGNOSIS: CORE BIOPSIES, RIGHT BREAST AT 4 O'CLOCK -- PORTIONS OF FIBROADENOMA. NEGATIVE FOR MALIGNANCY. NUMEROUS MICROCALCIFICATIONS. COMMENT: [facility] - A# [id number] CLINICAL INFORMATION: BREAST MASS SPECIMEN: A BRST, BX - RIGHT BREAST - 4 O'CLOCK GROSS DESCRIPTION: Received in formalin labeled with the patient's name are 3 white cores of soft tissue, ranging from 1.4-1.8 cm in length. TS-1 Time removed from patient: 1338 Time placed in formalin: 1339 Cold ischemic time: is within the parameters of ASCO/CAP guidelines Total fixation time: is within the parameters of ASCO/CAP guidelines (less than 6 hours or greater than 72 hours) Fixative: 10% neutral buffered formalin Dictated by Ashlyn NEWELL ([facility]) MICROSCOPIC DESCRIPTION: Slides reviewed. Electronically Signed by Pathology Report verified by [facility] Electronically signed by GARRY SUAREZ DO Sign out Date: 11/19/2018 12:09 Performing Lab: [facility], [address] [place] [address] ([place]) Comment on above: Performed By: #### S PFR #### [place] [id number] Laboratory - Microbiology an d Antimicrobial susceptibilityon 07-21-2012 S. pyogenes Ag EIA Ql (Throat) Positive Abnormal [facility], [employer].; [facility], [employer]. No Panel Informationon 11-18 MONOSPOT TEST (IN HOUSE) Negative Normal [facility].; [employer], [employer]. Laboratory - Microbiology an d Antimicrobial susceptibilityon 11-14-2010 S. pyogenes Ag EIA Ql (Throat) Negative Normal [facility], [employer].; [employer], [employer]. Laboratory - Chemistry and C hemistry - challengeon 01-29-2010 Calcium [Mass/Vol] 8.8 mg/dL Normal 8.6 - 10. 2 mg/dL [facility], [facility].; [facility], [employer]. Chloride [Moles/Vol] 104 mmol/L Normal 98 - 11 0 mmol/L [facility], [facility].; [employer], [employer]. CO2 [Moles/Vol] 22 mmol/L Normal 21 - 33 mmol/L [facility] [employer] [facility], [facility].; [employer] Creatinine [Mass/Vol] 0.61 mg/dL Normal 0.57 - 1.03 mg/dL [facility], [employer].; [employer] Free T4 [Mass/Vol] 1.2 ng/dL Normal 0.8 - 1.8 ng/dL [facility], [employer].; [facility], [employer]. GFR/1.73 sq M.predicted among blacks MDRD (S/P/Bld) [Vol rate/Area] mL/min/{1.73_m2} Normal [facility].; [facility], [facility] Glucose [Mass/Vol] 79 mg/dL Normal 65 - 99 mg/dL [facility].; [facility], [facility] Potassium [Moles/Vol] 4.0 mmol/L Normal 3.5 - 5.3 mmol/L [facility]; [facility], [facility] Sodium [Moles/Vol] 137 mmol/L Normal 135 - 146 mmol/L [facility]; [facility], [facility] TSH Qn 1.99 m[IU]/L Normal 0.40 - 4.50 {mIU/L} [facility]; [facility], [facility] Urea nitrogen [Mass/Vol] 9 mg/dL Normal 7 - 25 mg/dL [facility]; [facility], [facility] Urea nitrogen/Creatinine [Mass ratio] 14.8 mg/mg Normal 6 - 22 [facility]; [facility] Laboratory - Hematology and Cell countson 01-29-2010 Basophils (Bld) [#/Vol] 10 {Cells}/uL Normal 0 - 200 {Cells}/uL [facility]; [facility], [facility] Basophils/100 WBC (Bld) 0 % Normal 0 - 2 % [facility].; [facility], [facility]. Eosinophils (Bld) [#/Vol] 40 {Cells}/uL Normal 15 - 500 {Cells}/uL [facility].; [facility], [facility] Eosinophils/100 WBC (Bld) 1 % Normal 0 - 8 % [facility]; [facility], [facility] Erythrocyte distribution width (RBC) [Ratio] 12.6 % Normal 11.0 - 15.0 % [facility], [facility].; [facility], [facility] Hematocrit (Bld) [Volume fraction] 37.0 % Normal 35.0 - 45.0 % [facility], [facility].; [facility], [facility] Hemoglobin (Bld) [Mass/Vol] 13.0 g/dL Normal 11.7 - 15.5 g/dL [facility]; [facility], Inc. Lymphocytes (Bld) [#/Vol] 890 {Cells}/uL Normal 850 - 3900 {Cells}/uL [facility].; [facility], [facility]. Lymphocytes/100 WBC (Bld) 12 % Normal 15 - 49 % [facility].; [facility], [facility]. MCH (RBC) [Entitic mass] 32.7 pg Normal 27.0 - 33.0 PG [facility].; [facility], [facility]. MCHC (RBC) [Mass/Vol] 35.0 g/dL Normal 32.0 - 36.0 g/dL [facility].; [facility], [facility]. MCV (RBC) [Entitic vol] 93.3 fL Normal 80.0 - 100.0 fL [facility]; [facility], [facility]. Monocytes (Bld) [#/Vol] 340 {Cells}/uL Normal 200 - 950 {Cells}/uL [facility].; [facility], [facility]. Monocytes/100 WBC (Bld) 5 % Normal 0 - 13 % [facility].; [facility], [facility]. Neutrophils (Bld) [#/Vol] 6200 {Cells}/uL Normal 1500 - 7800 {Cells}/uL [facility].; [facility], [facility]. Neutrophils/100 WBC (Bld) 82 % Normal 38 - 80 % [facility], [facility].; [facility], [facility]. Platelets (Bld) [#/Vol] 148 10*3/uL Normal 140 - 400 10*3/uL [facility].; [facility], [facility]. Platelets LM Ql (Bld) NORMAL Normal [facility]; [facility], [facility] RBC (Bld) [#/Vol] 3.97 10*6/uL Normal 3.80 - 5.1 0 10*6/uL [facility].; [facility], [facility]. RBC morphology finding Nom (Bld) NORMAL Normal [facility].; [facility], [facility] WBC (Bld) [#/Vol] 7.5 10*3/uL Normal 3.8 - 10.8 10*3/uL [facility].; [facility], [facility]. No Panel Informationon 01-29 EGFR NON-AFR. PORTUGUESE >60 Normal [facility].; [facility], [facility] Vital Signs Date Time Vital Sign Value Performing Clinician Facility 10-12-2024 13:32-0400 Body height 172.72 cm Edd Verdin PA Work Phone: [phone] [place] [address] 10-12-2024 13:30-0400 Body mass index (BMI) [Ratio] 20.1 kg/m2 Edd Verdin PA Work Phone: [phone] [address] 10-12-2024 13:30-0400 Body weight 59.98 kg Edd Verdin PA Work Phone: [phone] [place] [address] 10-12-2024 13:30-0400 Diastolic blood pressure 85 mm[Hg] Edd Verdin PA Work Phone: [phone] [place] [address] 10-12-2024 13:30-0400 Systolic blood pressure 126 mm[Hg] Edd Verdin PA Work Phone: [phone] [address] 08-24-2024 09:40-0400 Body height 172.72 cm Edd Verdin PA Work Phone: [phone] [address] 08-24-2024 09:38-0400 Body mass index (BMI) [Ratio] 20.1 kg/m2 Edd Verdin PA Work Phone: [phone] [place] [address] 08-24-2024 09:38-0400 Body weight 60.1 kg Edd Verdin PA Work Phone: [phone] [address] 08-24-2024 09:38-0400 Diastolic blood pressure 79 mm[Hg] Edd Verdin PA Work Phone: [phone] [place] [address] 08-24-2024 09:38-0400 Systolic blood pressure 121 mm[Hg] Edd Verdin PA Work Phone: [phone] [place] [address] 10-30-2023 08:51-0400 Body height 175.26 cm Sonja Salomon MA [facility], [facility].; [facility]. 10-30-2023 08:51-0400 Body mass index (BMI) [Ratio] 19.35 kg/m2 Sonja Salomon MA [facility].; [facility]. 10-30-2023 08:51-0400 Body surface area Derived from formula 1.73 m2 Sonja Salomon MA [facility].; [facility]. 10-30-2023 08:51-0400 Body temperature 97.6 [degF] Sonja Salomon MA [facility]; [facility]. Comment on above: Method: Tympanic 10-30-2023 08:51-0400 Body weight 59.42 kg Sonja Salomon MA [facility]; [facility]. 10-30-2023 08:51-0400 Diastolic blood pressure 80 mm[Hg] Sonja Salomon MA [facility].; [facility]. Comment on above: Patient Position: Sitting; Cuff Location : Left Arm; Cuff Size: Standard 10-30-2023 08:51-0400 Heart rate 98 /min Sonja Salomon MA [facility].; [facility]. Comment on above: Pattern: Regular 10-30-2023 08:51-0400 Inhaled oxygen concentration 21 % Sonja Salomon MA [facility]; [facility]. Comment on above: Room air 10-30-2023 08:51-0400 SaO2% (BldA) [Mass fraction] 99 % Sonja Salomon MA [facility].; [facility]. 10-30-2023 08:51-0400 Systolic blood pressure 119 mm[Hg] Sonja Salomon MA [facility].; [facility]. Comment on above: Patient Position: Sitting; Cuff Location : Left Arm; Cuff Size: Standard 06-19-2023 10:44-0500 Body height 175.26 cm Shruti [facility], [facility].; [facility]. 06-19-2023 10:44-0500 Body mass index (BMI) [Ratio] 19.2 kg/m2 [facility].; [facility]. 06-19-2023 10:44-0500 Body surface area Derived from formula 1.72 m2 [facility].; [facility], [facility]. 06-19-2023 10:44-0500 Body temperature 97.9 [degF] [facility].; [facility], [employer]. Comment on above: Method: Tympanic 06-19-2023 10:44-0500 Body weight 58.97 kg [facility].; [facility], [facility]. 06-19-2023 10:44-0500 Diastolic blood pressure 71 mm[Hg] [facility].; [facility], [employer]. Comment on above: Patient Position: Sitting; Cuff Location : Left Arm; Cuff Size: Standard 06-19-2023 10:44-0500 Heart rate 91 /min [facility].; [facility], [facility]. Comment on above: Pattern: Regular 06-19-2023 10:44-0500 Systolic blood pressure 110 mm[Hg] [facility].; [facility], [facility]. Comment on above: Patient Position: Sitting; Cuff Location : Left Arm; Cuff Size: Standard 02-03-2022 10:39-0400 Body height 175.26 cm Yesika Alex RN [facility], [facility].; [facility]. 02-03-2022 10:39-0400 Body mass index (BMI) [Ratio] 18.61 kg/m2 Yesika Alex RN [facility].; [facility], [facility]. 02-03-2022 10:39-0400 Body surface area Derived from formula 1.7 m2 Yesika Alex RN [facility], [facility].; [place] [facility] [facility], [employer]. 02-03-2022 10:39-0400 Body temperature 98.2 [degF] Yesika Alex RN [facility].; [place] [employer] [facility]. Comment on above: Method: Tympanic 02-03-2022 10:39-0400 Body weight 57.15 kg Yesika Alex RN [facility], [facility].; [place] [employer] [facility]. 02-03-2022 10:39-0400 Diastolic blood pressure 70 mm[Hg] Yesika Alex RN [facility], [facility].; [facility]. Comment on above: Patient Position: Sitting; Cuff Location : Left Arm; Cuff Size: Standard 02-03-2022 10:39-0400 Heart rate 120 /min Yesika Alex RN [facility], [facility].; [facility] [employer]. Comment on above: Pattern: Regular 02-03-2022 10:39-0400 Systolic blood pressure 102 mm[Hg] Yesika Alex RN [facility].; [place] [employer]. Comment on above: Patient Position: Sitting; Cuff Location : Left Arm; Cuff Size: Standard 08-26-2021 10:11040 Body height 175.26 cm Heidi Perez LPN [facility], [facility].; [facility] [employer] [facility]. 08-26-2021 10:11-0400 Body mass index (BMI) [Ratio] 18.9 kg/m2 Heidi Perez LPN [facility], [facility].; [place] [employer] [facility], [facility]. 08-26-2021 10:11-0400 Body surface area Derived from formula 1.71 m2 Heidi Perez LPN [facility], [facility].; [place] [employer] [facility]. 08-26-2021 10:11-0400 Body weight 58.06 kg Heidi Perez LPN [facility].; [facility]. 08-26-2021 10:11-0400 Diastolic blood pressure 81 mm[Hg] Heidi Perez LPN [facility].; [facility]. Comment on above: Patient Position: Sitting; Cuff Location : Left Arm; Cuff Size: Standard 08-26-2021 10:11-0400 Heart rate 108 /min Heidi Perez LPN [facility].; [facility]. Comment on above: Pattern: Regular 08-26-2021 10:11-0400 Systolic blood pressure 116 mm[Hg] Heidi Perez LPN [facility].; [facility]. Comment on above: Patient Position: Sitting; Cuff Location : Left Arm; Cuff Size: Standard 11-08-2020 10:32-0400 Body height 175.26 cm Edd J Verdin PA-C Work Phone: [facility]; [facility]. 11-08-2020 10:32-0400 Body mass index (BMI) [Ratio] 18.16 kg/m2 Edd J Verdin PA-C Work Phone: [facility]; [facility]. 11-08-2020 10:32-0400 Body surface area Derived from formula 1.68 m2 Edd J Verdin PA-C Work Phone: [facility]; [facility]. 11-08-2020 10:32-0400 Body temperature 100.9 [degF] Edd Luis Verdin PA-C Work Phone: [facility]; [facility]. Comment on above: Method: Tympanic 11-08-2020 10:32-0400 Body weight 55.79 kg Edd J Verdin PA-C Work Phone: [facility].; [facility]. 11-08-2020 10:32-0400 Diastolic blood pressure 71 mm[Hg] Edd J Verdin PA-C Work Phone: [facility]; [facility]. Comment on above: Patient Position: Sitting; Cuff Location : Left Arm; Cuff Size: Standard 11-08-2020 10:32-0400 Heart rate 140 /min Edd J Verdin PA-C Work Phone: [facility]; [facility]. Comment on above: Pattern: Regular 11-08-2020 10:32-0400 Inhaled oxygen concentration 20 % Edd J Verdin PA-C Work Phone: [facility]; [facility]. Comment on above: Room air 11-08-2020 10:32-0400 Inhaled oxygen concentration 21 % Edd Verdin PA-C Work Phone: [facility]; [facility]. Comment on above: Room air 11-08-2020 10:32-0400 SaO2% (BldA) [Mass fraction] 100 % Edd Luis Verdin PA-C Work Phone: [facility]; [facility]. 11-08-2020 10:32-0400 Systolic blood pressure 111 mm[Hg] Edd Verdin PA-C Work Phone: [facility]; [facility]. Comment on above: Patient Position: Sitting; Cuff Location : Left Arm; Cuff Size: Standard 02-21-2019 11:27-0500 Body height 175.26 cm Janet Faye LPN [employer] [facility]. 02-21-2019 11:27-0500 Body mass index (BMI) [Ratio] 23.18 kg/m2 Janet Faye LPN [facility].; [facility]. 02-21-2019 11:27-0500 Body surface area Derived from formula 1.86 m2 Janet Faye LPN [facility].; [facility]. 02-21-2019 11:27-0500 Body temperature 98.5 [degF] Janet Faye LPN [facility].; [facility]. Comment on above: Method: Tympanic 02-21-2019 11:27-0500 Body weight 71.22 kg Janet Faye LPN [facility].; [employer] 02-21-2019 11:27-0500 Diastolic blood pressure 74 mm[Hg] Janet Faye LPN [facility].; [facility]. Comment on above: Patient Position: Sitting; Cuff Location : Left Arm; Cuff Size: Standard 02-21-2019 11:27-0500 Heart rate 111 /min Janet Abdallalexi [employer] [facility].; [facility]. Comment on above: Pattern: Regular 02-21-2019 11:27-0500 Inhaled oxygen concentration 20 % Janet Salvadorcarolin [facility]. Comment on above: Room air 02-21-2019 11:27-0500 Inhaled oxygen concentration 21 % Janet Abdallalexi [facility].; [facility]. Comment on above: Room air 02-21-2019 11:27-0500 SaO2% (BldA) [Mass fraction] 98 % Janet Iora Healthmariocarolin [facility].; [facility]. 02-21-2019 11:27-0500 Systolic blood pressure 110 mm[Hg] Janet Rodriguezroxane [facility].; [facility]. Comment on above: Patient Position: Sitting; Cuff Location : Left Arm; Cuff Size: Standard 10-05-2014 10:00-0400 Body height 175.26 cm [employer] Work Phone: [place]; [facility]. 10-05-2014 10:00-0400 Body mass index (BMI) [Ratio] 20.53 kg/m2 [employer] Work Phone: [place]; [facility]. 10-05-2014 10:00-0400 Body surface area Derived from formula 1.77 m2 [employer] PA-C Work Phone: [place]; [facility]. 10-05-2014 10:00-0400 Body temperature 97.7 [degF] Edd Verdin PA-C Work Phone: [place]; [facility]. Comment on above: Method: Tympanic 10-05-2014 10:00-0400 Body weight 63.05 kg Edd Verdin PA-C Work Phone: [place]; [facility]. 10-05-2014 10:00-0400 Diastolic blood pressure 83 mm[Hg] Edd Verdin PA-C Work Phone: [place]; [facility]. Comment on above: Patient Position: Sitting; Cuff Location : Left Arm; Cuff Size: Standard 10-05-2014 10:00-0400 Heart rate 106 /min Edd Verdin PA-C Work Phone: [place]; [facility]. Comment on above: Pattern: Regular 10-05-2014 10:00-0400 Inhaled oxygen concentration 20 % Edd Verdin PA-C Work Phone: [place]; [facility]. Comment on above: Room air 10-05-2014 10:00-0400 Inhaled oxygen concentration 21 % Edd Verdin PA-C Work Phone: [place]; [facility]. Comment on above: Room air 10-05-2014 10:00-0400 SaO2% (BldA) [Mass fraction] 100 % Edd Verdin PA-C Work Phone: [place]; [facility]. 10-05-2014 10:00-0400 Systolic blood pressure 131 mm[Hg] Edd Verdin PA-C Work Phone: [place]; [facility]. Comment on above: Patient Position: Sitting; Cuff Location : Left Arm; Cuff Size: Standard 03-01-2014 10:51-0500 Body height 175.26 cm Janet Faye LPN [facility].; [facility]. 03-01-2014 10:51-0500 Body mass index (BMI) [Ratio] 19.81 kg/m2 Janet Faye LPN [facility].; [facility]. 03-01-2014 10:51-0500 Body surface area Derived from formula 1.74 m2 Janet Welexi [facility], [facility].; [place] [employer] 03-01-2014 10:51-0500 Body temperature 99.6 [degF] Janet Abdallalexi [facility], [facility].; [employer] Comment on above: Method: Tympanic 03-01-2014 10:51-0500 Body weight 60.84 kg Janet Welexi [facility], [facility].; [facility] [employer] 03-01-2014 10:51-0500 Diastolic blood pressure 81 mm[Hg] Janet Welexi [facility], [facility].; [facility], [employer]. Comment on above: Patient Position: Sitting; Cuff Location : Left Arm; Cuff Size: Standard 03-01-2014 10:51-0500 Heart rate 125 /min Janet Rmlexi [facility], [facility].; [facility]. Comment on above: Pattern: Regular 03-01-2014 10:51-0500 Inhaled oxygen concentration 20 % Janet Welexi [facility], Inc.; [place] [employer], [employer]. Comment on above: Room air 03-01-2014 10:51-0500 Inhaled oxygen concentration 21 % Janet Rmlexi [facility], [facility].; [facility], [employer]. Comment on above: Room air 03-01-2014 10:51-0500 SaO2% (BldA) [Mass fraction] 98 % Janet Rmlexi [facility], [facility].; [facility]. 03-01-2014 10:51-0500 Systolic blood pressure 131 mm[Hg] Janet Welexi [facility], Inc.; [facility]. Comment on above: Patient Position: Sitting; Cuff Location : Left Arm; Cuff Size: Standard 07-21-2012 10:04-0400 Body height 175.26 cm Heidi Perez [facility], Inc.; [employer]. 07-21-2012 10:04-0400 Body mass index (BMI) [Ratio] 20.08 kg/m2 Heidi Perez [facility].; [facility]. 07-21-2012 10:04-0400 Body surface area Derived from formula 1.75 m2 Heidi Perez [facility].; [facility]. 07-21-2012 10:04-0400 Body temperature 100.7 [degF] [facility] Jacinto [facility].; [facility]. Comment on above: Method: Tympanic 07-21-2012 10:04-0400 Body weight 61.69 kg Heidi Perez [facility] [facility].; [facility]. 07-21-2012 10:04-0400 Diastolic blood pressure 76 mm[Hg] Heidi Perez [facility] [employer] [facility].; [employer]. Comment on above: Patient Position: Sitting; Cuff Location : Left Arm; Cuff Size: Standard 07-21-2012 10:04-0400 Heart rate 135 /min Heidi Perez [facility] [employer] [facility].; [facility]. Comment on above: Pattern: Regular 07-21-2012 10:04-0400 Systolic blood pressure 128 mm[Hg] Heidi Perez [facility] [employer] [facility].; [facility]. Comment on above: Patient Position: Sitting; Cuff Location : Left Arm; Cuff Size: Standard 11-18-2010 11:40-0400 Body height 175.26 cm Edd [employer] Work Phone: [facility].; [employer] [facility]. 11-18-2010 11:40-0400 Body mass index (BMI) [Ratio] 19.64 kg/m2 EddSkycheckin PA-C Work Phone: [employer] [facility] [employer]. 11-18-2010 11:40-0400 Body surface area Derived from formula 1.74 m2 EddSkycheckin PA-C Work Phone: [place]; [employer]. 11-18-2010 11:40-0400 Body temperature 97.6 [degF] Edd Verdin PA-C Work Phone: [employer] [employer]. Comment on above: Method: Tympanic 11-18-2010 11:40-0400 Body weight 60.33 kg Edd Verdin PA-C Work Phone: [employer] [employer]. 11-18-2010 11:40-0400 Diastolic blood pressure 84 mm[Hg] Edd Verdin PA-C Work Phone: [employer] [employer]. Comment on above: Patient Position: Sitting; Cuff Location : Left Arm; Cuff Size: Standard 11-18-2010 11:40-0400 Heart rate 108 /min Edd Verdin PA-C Work Phone: [place]; [employer]. Comment on above: Pattern: Regular 11-18-2010 11:40-0400 Systolic blood pressure 124 mm[Hg] Edd Verdin PA-C Work Phone: [place]; [employer]. Comment on above: Patient Position: Sitting; Cuff Location : Left Arm; Cuff Size: Standard 11-14-2010 14:15-0400 Body temperature 98.2 [degF] Heidi Perez [employer] [facility]. Comment on above: Method: Tympanic 11-14-2010 14:15-0400 Body weight 61.69 kg Heidi Perez LPN [facility]. 11-14-2010 14:15-0400 Diastolic blood pressure 76 mm[Hg] Heidi Perez [employer] [facility] [employer]. Comment on above: Patient Position: Sitting; Cuff Location : Left Arm; Cuff Size: Standard 11-14-2010 14:15-0400 Heart rate 115 /min Heidi Perez LPN [facility] [employer] [facility]. Comment on above: Pattern: Regular 11-14-2010 14:15-0400 Systolic blood pressure 123 mm[Hg] Heidi Perez LPN [facility].; [employer]. Comment on above: Patient Position: Sitting; Cuff Location : Left Arm; Cuff Size: Standard 01-29-2010 09:19-0400 Body height 175.26 cm Edd Verdin PA-C Work Phone: [facility]; [employer]. 01-29-2010 09:19-0400 Body mass index (BMI) [Ratio] 20.38 kg/m2 Edd Verdin PA-C Work Phone: [facility]. 01-29-2010 09:19-0400 Body surface area Derived from formula 1.76 m2 Edd Verdin PA-C Work Phone: [place]; [employer]. 01-29-2010 09:19-0400 Body weight 62.6 kg Edd Verdin PA-C Work Phone: [employer] [facility] 01-29-2010 09:19-0400 Diastolic blood pressure 76 mm[Hg] Edd Verdin PA-C Work Phone: [place]; [employer]. Comment on above: Patient Position: Sitting; Cuff Location : Left Arm; Cuff Size: Standard 01-29-2010 09:19-0400 Heart rate 92 /min Edd Verdin PA-C Work Phone: [place]; [employer]. Comment on above: Pattern: Regular 01-29-2010 09:19-0400 Systolic blood pressure 130 mm[Hg] Edd Verdin PA-C Work Phone: [employer] [employer]. Comment on above: Patient Position: Sitting; Cuff Location : Left Arm; Cuff Size: Standard Encounters Encounter Date Encounter Type Care Provider Facility Start: 10-12-[address] Janet Rios DO -Lab [facility] Start: 10-12-2024 End: 10-12-2024 ambulatory Edd Verdin PA Work Phone: -[facility] Start: 10-12-2024 End: 10-12-[address] Janet Rios DO -[facility] Work Phone: Start: 10-07-2024 Encounter for genera l adult medical examination without abnormal findings [address] [place] [address] Start: 10-03-2024 End: 10-03-2024 ambulatory Edd Verdin PA Work Phone: -Laboratory Start: 10-03-2024 End: 10-03-2024 Patient encounter procedure Eddbritt Malaveer PA Work Phone: -Laboratory Work Phone: Start: 10-03-2024 End: 10-03-[address] Facility:[facility] Start: 08-31-2024 End: 08-31-2024 Patient encounter procedure Joelle Muniz CNM -[facility] Start: 08-31-2024 End: 08-31-2024 ambulatory Edd Verdin PA Facility:[facility] Start: 08-24-2024 Encounter for gynecological examination (general) (routine) without abnormal findings Joelle Muniz [facility] Start: 08-24-2024 End: 08-24-2024 Patient encounter procedure Joelle Muniz CNM -[facility] Start: 08-24-2024 End: 08-24-2024 Patient encounter status Joelle Muniz CNM [facility] Start: 08-24-2024 End: 08-24-2024 ambulatory Edd Verdin PA Work Phone: [facility] Work Phone: Start: 10-30-2023 End: 10-30-2023 Office outpatient visit 15 minutes Edd Verdin PA-C Work Phone: [facility] Start: 06-19-2023 End: 06-19-2023 Office outpatient visit 15 minutes Edd Verdin PA-C Work Phone: [employer]. Start: 06-19-2023 Review Edd Verdin PA-C Work Phone: [employer] [facility]. Start: 06-10-2023 End: 06-10-2023 Medication Edd Verdin PA-C Work Phone: [employer]. Start: 02-03-2022 End: 02-03-2022 ambulatory ERIKA PA-C [facility] Start: 02-03-2022 End: 02-03-2022 Office outpatient visit 15 minutes Edd Verdin PA-C Work Phone: [employer] [facility] Start: 10-23-2021 End: 10-23-2021 ambulatory EDD Smith VERDIN [facility] Start: 09-20-2021 End: 09-20-2021 Orders Edd Verdin PA-C Work Phone: [facility]. Start: 09-20-2021 End: 09-20-2021 Medication Edd Verdin PA-C Work Phone: [employer]. Start: 09-05-2021 End: 09-05-2021 ambulatory EDD VERDIN [facility] Start: 08-29-2021 End: 08-29-2021 Orders Edd Verdin PA-C Work Phone: [employer]. Start: 08-26-2021 End: 08-26-2021 Patient encounter procedure Edd Verdin PA-C Work Phone: [place] Start: 11-12-2020 End: 11-12-2020 Medication Edd Verdin PA-C Work Phone: [place] Start: 11-08-2020 End: 11-08-2020 Patient encounter procedure Edd Verdin PA-C Work Phone: [place] Start: 02-27-2020 End: 02-27-2020 Nursing evaluation of patient and report Edd Verdin PA-C Work Phone: [employer]. Start: 06-07-2019 End: 06-07-2019 Telephone follow-up Edd Malaveer PA-C Work Phone: [place] Start: 02-21-2019 End: 02-21-2019 Patient encounter procedure Edd Verdin PA-C Work Phone: [employer]. Start: 02-19-2019 End: 02-19-2019 Nursing evaluation of patient and report Edd Verdin PA-C Work Phone: [employer]. Start: 06-18-2018 End: 06-18-2018 Orders Edd Verdin PA-C Work Phone: [employer]. Start: 06-18-2018 End: 06-18-2018 Orders Edd Verdin PA-C Work Phone: [employer]. Start: 06-18-2018 End: 06-18-2018 Medication Edd Verdin PA-C Work Phone: [employer]. Start: 11-04-2014 End: 11-04-2014 Medication Edd Verdin PA-C Work Phone: [place] Start: 10-05-2014 End: 10-05-2014 Patient encounter procedure Edd Verdin PA-C Work Phone: [place] Start: 03-01-2014 End: 03-01-2014 Patient encounter procedure Edd Verdin PA-C Work Phone: [employer]. Start: 07-21-2012 End: 07-21-2012 Patient encounter procedure Edd Verdin PA-C Work Phone: [place] Start: 03-24-2012 End: 03-24-2012 Nursing evaluation of patient and report Edd Verdin PA-C Work Phone: [place] Start: 02-27-2011 End: 02-27-2011 Office outpatient visit 5 minutes Edd Verdin PA-C Work Phone: [facility] Start: 11-28-2010 End: 11-28-2010 Phone Encounter Edd Verdin PA-C Work Phone: [place] Start: 11-18-2010 End: 11-18-2010 Patient encounter procedure Edd Verdin PA-C Work Phone: [employer] [facility] Start: 11-14-2010 End: 11-14-2010 Patient encounter procedure Edd NEWELL-Santiago Work Phone: [place] Start: 05-17-2010 End: 05-17-2010 Medication Edd Verdin PA-C Work Phone: [facility] Start: 02-18-2010 End: 02-18-2010 Orders Edd Verdin PA-C Work Phone: [employer] [facility] Start: 01-29-2010 End: 01-29-2010 Patient encounter procedure Edd Verdin PA-C Work Phone: [facility] Procedures Date Procedure Procedure Detail Performing Clinician Start: 10-03-2024 Procedure Edd NEWELL Work Phone: Comment on above: Sent directly to [facility] per ordering physician. Start: 08-31-2024 Follicle stimulating hormone measurement Edd NEWELL Work Phone: Comment on above: FEMALE:Follicular: 1 .4 - 18.1 mIU/mLMidcycle: 3.4 - 33.4 mIU/mLLuteal: 1.5 - 9.1 mIU/mLPost Menopause: 23.0 - 116.3 mIU/mLMALE: 1.4 - 18.1 mIU/mL NORMAL REFERENCE RANGES FEMALE FOLLICULAR 2.3 - 12.6 mIU/mL MID-CYCLE PEAK 5.2 - 17.5 mIU/mL LUTEAL 1.7 - 12.9 mIU/mL POST-MENOPAUSAL ON MHT 5.9 - 72.8 mIU/mL NOT ON MHT 12.7 - 132.2 mlU/mL MALE 0.7 - 10.8 mIU/mL Start: 08-31-2024 Luteinizing hormone measurement Edd NEWELL Work Phone: Comment on above: FEMALE:Follicular: 1 .9-12.5 mIU/mLMidcycle: 8.7-76.3 mIU/mLLuteal: 0.5-16.9 mIU/mLPost Menopause: 15.9-54.0 mIU/mLMALE:20-70 Years: 1.5-9.3 mIU/mL>70 Years: 3.1-34.6 mIU/mL Start: 02-03-2022 End: 02-03-2022 Radex foot complete minimum 3 views Erika Amato PA-C Work Phone: Start: 09-20-2021 End: 11-21-2021 Xtrnl ecg & 48 hr record scan stor w/r&i Edd Verdin PA-C Work Phone: Start: 09-20-2021 End: 10-24-2021 TTE w or wo fol wcon,Ric Verdin PA-C Work Phone: Start: 02-27-2020 End: 02-27-2020 Flu immunize order/admin FLOAT NURSE Start: 02-19-2019 End: 02-19-2019 Flu immunize order/admin Josh askew MD Work Phone: Start: 01-29-2010 End: 02-14-2010 Xtrnl ecg & 48 hr record scan stor w/r&i Heidi Harman MD Work Phone: Plan of Treatment Date Care Activity Detail Author Start: 10-12-2024 Thyroperoxidase Ab [Units/volume] in Serum or Plasma [facility] Start: 10-12-2024 [facility] Start: 10-03-2024 Procedure [facility] Start: 08-26-2021 Catecholamines total urine CATECHOLAMINES TOTAL, URINE ([id number]) Start: 26-Aug-2021 11:05-04:00 Request [facility]. DXA Bone [Mass/Area] Bone density [facility] FMR1 gene CGG repeat s [Presence] in Blood or Tissue by Molecular genetics method [facility] Mullerian inhibiting substance [Mass/volume] in Serum or Plasma [facility] Immunizations Immunization Date Immunization Notes Care Provider Erin lemos 02-27-2020 influenza, injectabl e, quadrivalent, contains preservative Edd Verdin PA-C Work Phone: [facility] [employer]; [facility] Comment on above: Site: Left DeltoidVI S Given: * Influenza - Inactivated (11/25/18) 06-07-2019 measles, mumps and rubella virus vaccine Edd Verdin PA Work Phone: [facility] 02-19-2019 influenza, injectabl e, quadrivalent, contains preservative Edd Verdin PA-C Work Phone: [facility]; [facility] Comment on above: Site: Left DeltoidVI S Given: * Influenza - Inactivated (11/17/14) 03-24-2012 influenza, seasonal, injectable Edd Verdin PA-C Work Phone: [facility]; [facility]. Comment on above: Site: Deltoid (Right )VIS Given: * Inactivated Influenza Vaccine (11/21/08) * Inactivated Influenza Vaccine (11/05/10) * Influenza vaccine , inactivated (10/13/2011) * VIS Given (Unspecified) 03-24-2012 IMMUNIZATION ADMIN ([id number]) Edd Verdin PA-C Work Phone: [place]; [facility] 02-27-2011 influenza, seasonal, injectable Edd Verdin PA-C Work Phone: [facility]; [facility] Comment on above: Site: Deltoid (Right )VIS Given: * Inactivated Influenza Vaccine (11/21/08) * Inactivated Influenza Vaccine (11/05/10) * Inactivated Influenza Vaccine (11/05/10) * Inactivated Influenza Vaccine (11/05/10) * Inactivated Influenza Vaccine (11/05/10) * Inactivated Influenza Vaccine (11/05/10) * Inactivated Influenza Vaccine (11/05/10) * Inactivated Influenza Vaccine (11/05/10) * VIS Given (Unspecified) * VIS Given (Unspecified) 02-27-2011 IMMUNIZATION ADMIN ([id number]) Edd Verdin PA-C Work Phone: [facility]; [facility] Payers Date Payer Category Payer Self-pay [id number] 1985 Unknown [id number] 1985 Unknown [id number] Unknown Unknown [id number] Unknown [id number] Unknown [id number] [id number] [id number] Unknown [id number] [id number] [id number] Unknown [id number] [id number] Social History Date Type Detail Facility Non Smoker/No Tobacc o Use Non Smoker/No Tobacco Use [facility]; [facility] Start: 1985 Female [facility] Tobacco smoking consumption unknown [facility]; [facility] Work Phone: Start: 07-23-2023 Tobacco smoking stat [facility] Never smoked tobacco (finding) [facility] Start: 06-06-2019 Alcohol Alcohol [facility] Gender Identity Identifies as fe male gender (finding) [facility] Sexual Orientation Heterosexual (finding) [facility] Evaluation note 08-24-2024 Note Date & Type Note Facility 08-24-2024 Evaluation note Diagnosis Onset Date Resolution Secondary amenorrhea acute August 24, 2024 9:33am Encounter for routine gynecological examination noneactive August 24, 2024 9:33am [facility] Work Phone: Progress note 08-24-2024 Note Date & Type Note Facility 08-24-2024 Progress note [facility] Evaluation note Note Date & Type Note Facility Evaluation note Diagnosis Onset Date Resolution Secondary amenorrhea acute August 24, 2024 9:33am Encounter for routine gynecological examination noneactive August 24, 2024 9:33am [facility] Work Phone: Progress note Note Date & Type Note Facility Progress note Note Date/Time August 24, 2024 10:12am [facility] [address], [address] [place] [id number] OFFICE VISIT Date of Service: 08/24/24 MR#: [id number] Acct: [id number] Name: KAREN CHAMBERS Rep #: [id number] : 1985 Provider: LOLITA Muniz Age/Sex: 38/F Location: [facility] Status: Signed Intake Vital Signs 07/23/23 14:26 08/24/24 09:38 08/24/24 09:40 Height 5 ft 8 in 5 ft 8 in 5 ft 8 in Weight: 132 lb 8 oz BMI 20.1 BP 121/79 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[employer] Required: No Is patient in pain?: No Allergies latex Adverse Reaction (Verified 08/24/24 09:39) Rash Medications ?Medication ?Instructions ?Recorded ?Confirmed ?Type valacyclovir 500 mg tablet 500 mg PO BID 07/23/2308/11 History (Valtrex) Is last menstrual period known: Yes Last Menstrual Period: 04/20/24 Post menopausal: No Patient : No : No Do you think of yourself as: straight/heterosexual Current gender identity: female [facility] Medical History Ventricular tachycardia Surgical History H/O breast biopsy Social History do you think of yourself as: straight/heterosexual current gender identity: female Smoking Status: Never smoker alcohol intake: never substance use type: does not use caffeine: No what type of physical activity do you participate in: none seatbelt use: always do you feel safe at home: Yes additional social history: - Jason History 6 Elective abortions Hx Para 4 Spontaneous abortions Hx # Term Pregnancies Ectopic pregnancies Hx # Pregnancies Multiple births # of living children 4 Past Pregnancies Del. Date Name GA/Weeks Outcome Route Bth Weight Infant Gen Labor Lgth Anesthesia Del Locatn Provider FOB Unknown July Unknown Myrna Unknown Trey Unknown Teresa HPI Encounter for routine gynecological examination Details: KAREN CHAMBERS is a 38 year old who presents for annual exam. last menses was in apr and multiple neg preg tests. last negative test was last week. menses were regular approx q 28-30 days prior to this. Has Lymes and sees physician in [place]-she feels like she is having a flair which may be affecting her menses.discussed labs and provera challenge, possible TVUS. Last PAP: 2022 History of abnormal PAP: no Last mammogram: Age 40 History of abnormal mammogram: na Colon cancer screening: Age 45 Other preventative health care screenings: physician in [place] Female Reproductive History Last Menstrual Period: 04/20/24 Cycle Length: 21-35 Bleeding Duration: 4 Questions: sexually active: Yes, dyspareunia: No and PCB: No ROS Const Constitutional: Reports system reviewed and no additional complaints, except as documented Cardio Card: Reports system reviewed and no additional complaints, except as documented Resp Resp: Reports system reviewed and no additional complaints, except as documented GI GI: Reports system reviewed and no additional complaints, except as documented : Reports system reviewed and no additional complaints, except as documented; Denies difficulty voiding, dysuria or urinary frequency Skin Skin/Breast: Reports system reviewed and no additional complaints, except as documented Neuro Neuro: Reports system reviewed and no additional complaints, except as documented Psych Psych: Reports system reviewed and no additional complaints, except as documented; Denies anhedonia, anxiety or depression Exam Const General: cooperative, healthy appearing, comfortable and no acute distress Orientation: alert, awake and oriented x3 Neck Neck: normal visual inspection and full ROM Thyroid: thyroid normal Chest Breast inspection: normal inspection of the breasts and normal inspection of theaxillae Breast palpation: normal palpation of the breasts and normal palpation of the axillae Resp Effort & Inspection: normal respiratory effort, able to speak in complete sentences and symmetric chest movement GI Inspection: normal to inspection Palpation: soft Rectal Exam: visual inspection normal External Female Exam: normal external appearance and normal appearance of the urethra Urethra: normal appearance of the urethra Speculum Exam - Vagina: normal appearance of the vagina and normal vaginal discharge Speculum Exam - Cervix: normal appearance of the cervix and nontender Bimanual Exam- Vagina & Uterus: normal bimanual exam, normal palpation, uterine size normal, No tender and non-tender Bimanual Exam- Adnexa, other: normal Pelvic Support: normal Skin General: no rashes or lesions noted Neuro General: patient alert, patient awake and patient oriented x3 Cognition: normal cognition Speech: speech normal Gait: normal gait Extrem General: normal to inspection and full ROM Psych Appearance: grossly normal and well kempt Mental Status: mental status grossly normal Affect: normal affect Speech and Movement: speech and movement normal Attitude: cooperative Thought Process: normal Thought Content: normal Judgment: judgment good Coding Level of Care Code Off vis,est,prev 18-39yrs Diagnoses Encounter for routine gynecological examination Z01.419 Secondary amenorrhea N91.1 Assessment and Plan Assessment and Plan (1) Encounter for routine gynecological examination: (2) Secondary amenorrhea: Status: Acute Plan: TSH, fsh, estrodial, tsh t4 hcg If labs normal plan provera challenge-if no withdrawal bleed plan TVUS RTO for annual/PRN Plan Details Additional Comments: Cervical cancer screenin Breast cancer screening: age 40 STD prevention and contraceptive options including their risks, benefits, and alternatives were reviewed with the patient and she chooses: denies Encouraged maintenance of a healthy weight and active lifestyle and handout given. Calcium/vitamin D recommendations provided. Annual exam handout including recommendations for good health guidelines and basic screening information given. Problem list up to date, see problem list details for any additional plan information. follow up in one year for annual health maintenance exam or sooner if needed. 08/24/24 1012 <Electronically signed by Joelle jimenez CNM> Date _ Joelle Muniz CNM Cosigner Signature: Date (if applicable) CC: ~ [facility] Work Phone: Reason for referral (narrative) Note Date & Type Note Facility Reason for referral (narrative) No reason for referral information available [facility] Work Phone: Summary Purpose Family History Heart murmur Status:Active Comments:multipl e family members no pregancy complications (R enamed from no heart issues or complications) Status:Active Heart murmur Status:Active Comments:multipl e family members no pregancy complications (R enamed from no heart issues or complications) Status:Active Heart murmur Status:Active Comments:multipl e family members no pregancy complications (R enamed from no heart issues or complications) Status:Active Heart murmur Status:Active Comments:multipl e family members no pregancy complications (R enamed from no heart issues or complications) Status:Active Heart murmur Status:Active Comments:multipl e family members no pregancy complications (R enamed from no heart issues or complications) Status:Active Heart murmur Status:Active Comments:multipl e family members no pregancy complications (R enamed from no heart issues or complications) Status:Active Advance Directives No Advanced Directives Records FoundNo Advanced Directives Records FoundNo Advanced Directives Records FoundNo Advanced Directives Records FoundNo Advanced Directives Records Found Chief Complaint and Reason for Visit Chief Complaint Admit Date Annual (INFORMATICS PHYSICIAN) August 24, 2024 9:33a m Reason for Visit Admit Date Secondary amenorrhea August 24, 2024 9:33 am Encounter for routine gynecological exam ination August 24, 2024 9:33am Chief Complaint Admit Date Annual (INFORMATICS PHYSICIAN) August 24, 2024 9:33a m Discuss labs, Premature ovarian insuffic iency October 12, 2024 1:27pm Additional Source Comments INFORMATION SOURCE (unrecogn ized section and content) DATE CREATED AUTHOR 11/19/2018 [facility] ([place]) DATE CREATED AUTHOR AUTHOR'S ORGANIZ ATION 11/14/2020 [facility] DATE CREATED AUTHOR AUTHOR'S ORGANIZ ATION 08/30/2021 [facility] DATE CREATED AUTHOR AUTHOR'S ORGANIZ ATION 02/04/[address] [facility] DATE CREATED AUTHOR AUTHOR'S ORGANIZ ATION 10/11/2024 [facility] Care Teams (unrecognized sec tion and content) Team Status: Active Member Role Status Dates Edd Verdin PA, PA Primary Care Provider Active Team Status: Inactive Member Role Status Dates Edd Verdin PA, PA Primary Care Provider Active Start: August 24, 2024 End: August 24, 2024 Edd Verdin PA, PA Referring Provider Active Start: August 24, 2024 End: August 24, 2024 Joelle Muniz CNM Attending Provider Active S tart: August 24, 2024 End: August 24, 2024 Team Status: Active Member Role/Relationship Status Dates Edd Verdin PA, PA Primary Care Provider Active Team Status: Inactive Member Role/Relationship Status Dates Edd Verdin PA, PA Primary Care Provider Active Start: August 24, 2024 End: August 24, 2024 Edd Verdin PA, PA Referring Provider Active Start: August 24, 2024 End: August 24, 2024 Joelle Muniz CNM Attending Provider Active S tart: August 24, 2024 End: August 24, 2024 Team Status: Inactive Member Role/Relationship Status Dates Edd Verdin PA, PA Primary Care Provider Active Start: August 31, 2024 End: August 31, 2024 Joelle Muniz CNM Attending Provider Active S tart: August 31, 2024 End: August 31, 2024 Joelle Muniz CNM Referring Provider Active S tart: August 31, 2024 End: August 31, 2024 Team Status: Inactive Member Role/Relationship Status Dates ALESIA CLINTON Attending Provider Active Start: October 03, 2024 End: October 03, 2024 ALESIA CLINTON Referring Provider Active Start: October 03, 2024 End: October 03, 2024 Edd Verdin PA, PA Primary Care Provider Active Start: October 03, 2024 End: October 03, 2024 Team Status: Inactive Member Role/Relationship Status Dates Edd Verdin PA, PA Primary Care Provider Active Start: October 12, 2024 End: October 12, 2024 REECE Dasilva Referring Provider Active Start: October 12, 2024 End: October 12, 2024 Dr. Janet Rios DO Attending Provider Activ e Start: October 12, 2024 End: October 12, 2024 Team Status: Active Member Role/Relationship Status Dates REECE Dasilva Primary Care Provider Active Start: October 12, 2024 Dr. Janet Rios DO Attending Provider Activ e Start: October 12, 2024 Goals (unrecognized section and content) Goals may be documented in a n alternate sectionGoals may be documented in an alternate sectionGoals may be documented in an alternate section FOR RECORDS PERTAINING TO PATIENTS WHO ARE OR HAVE BEEN ENROLLED IN A CHEMICAL DEPENDENCY/SUBSTANCEABUSE PROGRAM, SOME INFORMATION MAY BE OMITTED. This clinical summary was aggregated from multiple sources. Caution should be exercised in using it in the provision of clinical care. This summary normalizes information from multiple sources, and as a consequence, information in this document may materially change the coding, format and clinical context of patient data. In addition, data may be omitted in some cases. CLINICAL DECISIONS SHOULD BE BASED ON THE PRIMARY CLINICAL RECORDS. [employer] provides no warranty or guarantee of the accuracy or completeness of information in this document.
--- OUTSIDE RECORDS SUMMARY | 2024-10-12 22:46 | XMS RPT_ITS | CCD ---
Author Organization [facility] Care Team Providers Care Director Regulatory Affairs Name Role Phone VERDIN, EDD J Consulting [...] J Unavailable Verdin PA-C, Edd J Unavailable [facility] Unavailable Heidi Harman MD Unavailable Sherrie Hollis LPN Unavailable Amato PA-C, Erika J Unavailable Diego Borrero MD Unavailable Too PA-C, Yesika Pugh Unavailable Isai HARRIS, Yesika Landers Unavailable Unavaila ble Patrick HERNÁNDEZN, Cathy Kam Unavailable Unavaessence Perez RESEARCH/PROGRAM DIRECTOR, Heidi Jacinto Unavailable Unavailab oliva Faye LPN, Jnaet Unavailable Unavailabl silvia Hillman LPN, Courtney Unavailable Unavailable Unavailable Unavailable ENT Provider Unavailable Unavailable Lisandra COLLINS, Shruti Unavailable UnavailSonja Dia MA Unavailable Unavailable Verdin REECE, Edd Primary Care Provider Edd Comer Referring Provider Joelle Muniz CNM Attending Provider Joelle Muniz CNM Referring Provider MARY BETH BORRERO Attending Provider MARY BETH BORRERO Referring Provider Lambert NEWELL, Edd Primary Care Unavailable Lambert NEWELL, Edd Referring Unavailable Joelle Muniz Attending Unavailable Lambert NEWELL, Edd Primary Care Unavailable Joelle Muniz Attending Unavailable Joelle Muniz Referring Unavailable JODRY SOLITARIO Attending Unavailable JORDY SOLITARIO Referring Unavailable Lambert NEWELL, Edd Primary Care Unavailable Dr. Janet Rios DO Attending Provider Allergies Allergy Classification Reported Allergen(s) Allergy Type Date of Onset Reaction(s) Facility (3 sources) Latex Propensity to adverse reactions [address] [place] [address] (1 source) Latex Drug allergy (disorder) [address] [place] [address] Repository Medications Current Medications Medication Drug Class(es) [...] Start: 17-May-2010 End: 18-May-2010 Status: Inactive nystatin [id number] unt/ml topical cream (6 sources) Polyene Antifungal Start: 05-17-19 11 End: 03-01-20 14 [place], [id number]/GM (External Cream) ; AAA Cream three times [...] Faye Start: 18-Jun-2018 End: 21-Feb-2019 Status: Inactive Vit,Bmcn85-Cyzc-Fjey c (Prenatabs Fa) 1 TABLET tablet (3 sources) Start: 07-07-19 17 End: 07-23-19 24 take 1 tablet by mouth once daily Vit,Simm53-Srqk-Kxej c (Prenatabs Fa) 1 TABLET tablet Discontinued 1 {tbl} PO DAILY July 06, 2016 12:00am July 23, 2023 2:36pm supplement Start: 07-06-2016 End: 07-23-2023 take 1 tablet by mouth once daily Vit,Gefd44-Rflc-Lrqva (Prenatab s Fa) 1 TABLET tablet Discontinued [...] aftercare (18 sources) Drug indicated; Translations: [Other penitentiary (current) drug therapy] 02-21-2019 Episodic Other aftercare (18 sources) Antibiotic prophylaxis indicated; Translations: [detention (current) use of antibiotics] 08-26-2021 Episodic Other [...] 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 She states she does not have chest [...] Range Facility Miscellaneous Lab Procedureo n 10-10-2024 [facility] LAB TEST Normal [facility] Comment on above: Order Comment: DIREC T SEND OUT Result Comment: Sent directly to testing facility per ordering physician. Performed By: #### L 801.1541 #### [facility] [address] [place], [address] Estradiolon 08-31-2024 ESTRADIOL < 5.0 Normal [facility] Comment on above: Result Comment: FEMA [...] L 700.8000, L3100.5055, L3300.1750, L506.0400, L501.9520 #### [facility] [address] [place], [address] FSH and LHon 08-31-2024 FSH 192.0 mIU/mL Normal [facility] Comment on above: Result Comment: FEMA [...] L 700.8000, L3100.5055, L3300.1750, L506.0400, L501.9520 #### [facility] [address] [place], [place], [id number] LH 77.5 mIU/mL Normal [facility] Comment on above: Result Comment: FEMA LE: Follicular: 1.9-12.5 mIU/mL Midcycle: 8.7-76.3 mIU/mL Luteal: 0.5-16.9 mIU/mL Post Menopause: 15.9-54.0 mIU/mL MALE: 20-70 Years: 1.5-9.3 mIU/mL >70 Years: 3.1-34.6 mIU/mL Performed By: #### L 700.8000, L3100.5055, L3300.1750, L506.0400, L501.9520 #### [facility] [address] [place], [place], [address] LH ser/plasOrdered By: Joelle Muniz on 08-31-2024 Lutropin Qn 77.5 m[IU]/mL [facility] Comment on above: FEMALE:Follicular: 1 .9-12.5 mIU/mLMidcycle: 8.7-76.3 mIU/mLLuteal: 0.5-16.9 mIU/mLPost Menopause: 15.9-54.0 mIU/mLMALE:20-70 Years: 1.5-9.3 mIU/mL>70 Years: 3.1-34.6 mIU/mL No Panel Informationon 08-31 [facility], [facility].; [facility], [facility]. [facility], [facility].; [facility] Serum human chorionic gonado tropin detection for pregnancyOrdered By: Joelle Muniz on 08-31-2024 HCG ( test) Ql < 1 mIU/mL <9 [facility] Comment on above: Gestational Age0.2-1 Week: 5-50 mIU/mL1-2 Weeks: 50-500 mIU/mL2-3 Weeks: 100-5000 mIU/mL3-4 Weeks: 500-10,000 mIU/mL4-5 Weeks:1000-50,000 mIU/mL5-6 Weeks: 10,000-100,000 mIU/mL6-8 Weeks: 15,000-200,000 mIU/mL2-3 Months:10,000-100,000 mIU/mL Serum or plasma estradiol me asurement after follitropin dose (mass/volume)Ordered By: Joelle Muniz on 08-31-2024 E2 post dose follitropin [Mass/Vol] < 5.0 pg/mL [facility] Comment on above: FEMALES ADULT FEMALE [...] T4 FREE DIRECT 1.50 ng/dL High 0.76-1.46 [facility] Comment on above: Performed By: #### L 700.8000, L3100.5055, L3300.1750, L506.0400, L501.9520 #### [facility] [address] [place], [place], [id number] T4 freeOrdered By: Joelle christianson on 08-31-2024 Free T4 [Mass/Vol] 1.50 ng/dL High 0.76-1.46 [facility] TSH DL <= 0.005 mIU/L QnOrde red By: Joelle Muniz on 08-31-2024 TSH Qn 1.050 uIU/mL 0.300-4.200 [facility] Thyroid Stim Hormone (TSH)on 08-31-2024 TSH 1.050 uIU/mL Normal 0.300-4.200 [facility] Comment on above: Performed By: #### L 700.8000, L3100.5055, L3300.1750, L506.0400, L501.9520 #### [facility] [address] [place], [address] hCG Titer Quant., Serumon HCG QUANT. < 1 Normal <9 non-preg [facility] Comment on above: Result Comment: Gest ational Age 0.2-1 Week: 5-50 mIU/mL 1-2 Weeks: 50-500 mIU/mL 2-3 Weeks: 100-5000 mIU/mL 3-4 Weeks: 500-10,000 mIU/mL 4-5 Weeks:1000-50,000 mIU/mL 5-6 Weeks: 10,000-100,000 mIU/mL 6-8 Weeks: 15,000-200,000 mIU/mL 2-3 Months:10,000-100,000 mIU/mL Performed By: #### L 700.8000, L3100.5055, L3300.1750, L506.0400, L501.9520 #### [facility] [address] [place], [place], [address] Food Service Associate Office Visit Reporton 08-24-2024 Food Service Associate Office Visit Report [facility] [address], [address] [place] [address] OFFICE VISIT Date of Service: 08/24/24 MR#: [id number] Acct: [id number] Name: TRISHKAREN Luis Rep #: [id number] : 1985 Provider: LOLITA King ams Age/Sex: 38/F Location: [facility] Status: Signed Intake Vital Signs 07/23/23 14:26 08/24/24 09:38 08/24/24 09:40 Height 5 ft 8 in 5 ft 8 in 5 ft 8 in Weight: 132 lb 8 oz BMI 20.1 BP 121/79 H Intake Visit Reasons: Annual (REIMBURSEMENT SPEC) 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 Has Lymes and sees physician in [place]-she feels like she is having a flair which may be affecting her menses. discussed labs and provera challenge, possible TVUS. Last PAP: 2022 History of abnormal PAP: no Last mammogram: Age 40 History of abnormal mammogram: na Colon cancer screening: Age 45 Other preventative health care screenings: physician in [place] Female Reproductive History Last Menstrual Period: 04/20/24 [...] alert, pa (more content not included)... Normal [facility] No Panel Informationon 10-29 [employer], [employer] No Panel Informationon 06-18 [employer]. No Panel Informationon 06-10 [employer] FOOT COMPLETE RTon 2 FOOT COMPLETE RT [place] [address] Patient: KAREN CHAMBERS Phone#: : 1985 Age: 36 Gender: F Pt. Type: Out Account: [id number] Location: 062 Ordering: ERIKA AMATO Exam Date: 02/03/2022/11:29 Family Phys: Charge Code: [id number] Physician: Weld Order #: [id number] Dose#: PROCEDURE: X-RAY FOOT RT COMPLETE MIN [...] Loaiza MD on 02/03/2022 at 12:01 Normal [facility] CV ECHO COMPLETE CV ECHO [place] [address] Patient: KAREN CHAMBERS Phone#: : 1985 Age: 35 Gender: F Pt. Type: Out Account: [id number] Location: 062 Ordering: EDD VERDIN Exam Date: 10/23/2021/12:58 Family Phys: Charge Code: [id number] Physician: Weld Order #: [id number] DLP Dose#: PROCEDURE: ECHOCARDIOGRAM WITH DOPPLER AND COLOR FLOW HISTORY: Patient is a 35-year-old female with tachycardia INDICATIONS: Tachycardia COMPARISON: None. TECHNIQUE: A 2-D ultrasound, color spectral Doppler and M-mode evaluation of the heart and great vessels. PATIENT MEASUREMENTS: Height (in.): 68 BSA: 1.7 Weight (lbs.): 128 BP: 121/70 Scrap Burner: WILLY M MODE 2D MEASUREMENTS AND CALCULATIONS: [...] 35 Gender: F Pt. Type: Out Account: [id number] Location: 062 Ordering: EDD VERDIN Exam Date: 10/23/2021/12:58 Family Phys: Charge Code: [id number] Physician: Weld Order #: [id number] DLP Dose#: Septal Peak E' LAM 70 [...] 35 Gender: F Pt. Type: Out Account: [id number] Location: [facility] Ordering: [facility] Exam Date: 10/23/2021/12:58 Family Phys: Charge Code: [id number] Physician: Weld Order #: [id number] DLP Dose#: IVC/SVC: IVC is dilated with [...] DUKE MD on 10/24/2021 at 12:22 Normal [facility] METANEPHRINES, PLASMA [CCL]o n 09-20-2021 Metanephrine, Plasma 75 pg/mL High [facility] Comment on above: Result Comment: Refe park Ranges: Hypertensive adult > or = 18 yrs old: 12-72 pg/mL Normotensive adult > or = 18 yrs old: 12-67 pg/mL Normotensive children < 18 yrs old: 10-95 pg/mL Performed By: #### 2 49864 #### [facility],[address] [place] [address] Normetanephrine, Fr Plas 91 pg/mL Normal 18-101 [facility] Comment on above: Result Comment: Refe rence [...] developed and its performance characteristics determined by [facility] [place] ([facility]). It has not been cleared or approved by the FDA. [facility] is regulated under CLIA as qualified to perform high-complexity testing. This test is used for clinical purposes. It should not be regarded as investigational or for research. [facility] [place] [address] Peng Elena III, M.D. [id number] Performed By: #### 2 75587 #### [facility],[address] [place], [place] [address] CATECHOLAMINES,FRACTIONATED, URINE [CCL]on 09-13-2021 Catecholamines, UrineInterp See Note Normal [facility] Comment on above: Result Comment: TEST INFORMATION: [...] reference intervals for this test in the [facility] Directory ([employer]). This test was developed and its performance characteristics determined by [facility]. It has not been cleared or approved by the US Food and Drug Administration. This test was performed in a CLIA certified laboratory and is intended for clinical purposes. [facility] [place] [address] Peng Elena III, M.D. [id number] Performed By: #### 2 89940 #### [facility],[address] [place] [address] Creatinine Ur, per 24h 1197 mg/d Normal 700-1600 [facility] Comment on above: Result Comment: Perf ormed by [facility], [address] [place] [address],[place] [id number] [email or web address], Valorie Moody MD, Lab. Director Performed By: #### 2 81194 #### [facility],[address] [place] [address] Creatinine Ur, per volume 35 mg/dL Normal [facility] Comment on above: Performed By: #### 2 53864 #### [address] [address] Dopamine, Urine per 24hour 233 ug/d Normal 71-485 [facility] Comment on above: Result Comment: REFE RENCE INTERVAL: Dopamine, Urine - ug/d Access complete set of age- and/or gender-specific reference intervals for this test in the [facility] Test [facility] ([employer]). Performed By: #### 2 27988 #### [facility],[address] [place] [address] Dopamine, Urine pervolume 68 ug/L Normal [facility] Comment on above: Performed By: #### 2 41580 #### [facility],[address] [place] [address] Dopamine, Urine ratio toCRT 194 ug/g SCHOOL ADJUSTMENT COUNSELOR Normal 0-250 [facility] Comment on above: Performed By: #### 2 95078 #### [facility],[address] [place] [address] Epinephrine, Urine [id number] 7 ug/d Normal 1-14 [facility] Comment on above: Result Comment: REFE RENCE INTERVAL: Epinephrine, Urine - ug/d Access complete set of age- and/or gender-specific reference intervals for this test in the [facility] Test Directory ([employer]). Performed By: #### 2 29799 #### [facility],[address] [place] [address] Epinephrine, Urine pervolume 2 ug/L Normal [facility] Comment on above: Performed By: #### 2 04113 #### [facility],[address] [place] [address] Epinephrine, Urine ratioto SCHOOL ADJUSTMENT COUNSELOR 6 ug/g SCHOOL ADJUSTMENT COUNSELOR Normal 0-20 [facility] Comment on above: Performed By: #### 2 26173 #### [place] [id number] Hours Collected 24 hr Normal [facility] Comment on above: Result Comment: Per 24h calculations are provided to aid interpretation for collections with a duration of 24 hours and an average daily urine volume. For specimens with notable deviations in collection time or volume, ratios of analytes to a corresponding urine creatinine concentration may assist in result interpretation. Performed By: #### 2 34658 #### [address] [address] Norepinephrine, Urineper 24hr 34 ug/d Normal 14-120 [facility] Comment on above: Result Comment: REFE RENCE INTERVAL: Norepinephrine, Urine - ug/d Access complete set of age- and/or gender-specific reference intervals for this test in the [facility] Test [facility] ([employer]). Performed By: #### 2 45583 #### [facility],[address] [place] [address] Norepinephrine, Urineper volume 10 ug/L Normal [facility] Comment on above: Performed By: #### 2 05993 #### [facility],[address] [place] [address] Norepinephrine, Urineratio to SCHOOL ADJUSTMENT COUNSELOR 29 ug/g SCHOOL ADJUSTMENT COUNSELOR Normal 0-45 [facility] Comment on above: Performed By: #### 2 58066 #### [facility],[address] [place] [address] Total Volume 3420 mL Normal [facility] Comment on above: Performed By: #### 2 05881 #### [facility],[address] [place] [address] METANEPHRINES, URINE 24 HR [ CCL]on 09-13-2021 Metanephrines,Urine 181 ug/24 hr Normal 52-341 [facility] Comment on above: Performed By: #### 2 11354 #### [facility],[address] [place] [address] NORMETANEPHRINES, UR 267 ug/24 hr Normal 88-444 [facility] Comment on above: Performed By: #### 2 02684 #### [facility],[address] [place] [address] Period (HRS) 24 hours Normal [facility] Comment on above: Result Comment: [facility] [address] [place] [address] Peng Elena III, M.D. [id number] Performed By: #### 2 03824 #### [facility],[address] [place] [address] Total Metanephrines 448 ug/24 hr Normal 140-785 [facility] Comment on above: Result Comment: This test was developed and its performance characteristics determined by [facility]'s [facility] Pathology and Laboratory Medicine [place] (-[facility]). It has not been cleared or approved by the FDA. [facility] is regulated under CLIA as qualified to perform high-complexity testing. This test is used for clinical purposes. It should not be regarded as investigational or for research. Performed By: #### 2 96655 #### [facility],[address] [place] [address] Volume (ML) 3420 mL Normal [facility] Comment on above: Performed By: #### 2 80330 #### [facility],[address] [place] [address] No Panel Informationon 09-05 Metanephrine, Plasma 75 pg/mL Abnormal 12 - 67 pg/mL H [facility].; [facility], [facility]. Work Phone: Normetanephrine, Fr Plas 91 pg/mL Normal 18 - 101 pg/mL [facility].; [facility] Work Phone: Laboratory - Chemistry and C hemistry - challengeon 09-04-2021 Creatinine [Mass/Vol] 35 mg/dL Normal [facility].; [facility] No Panel Informationon 09-04 Catecholamines, UrineInterp See Note Normal [facility]; [facility], [employer] Creatinine Ur, per 24h 1197 mg/d Normal 700 - 1600 mg/d [facility].; [facility]. Dopamine, Urine per 24hour 233 ug/d Normal 71 - 485 ug/d [facility].; [place] [employer]. Dopamine, Urine pervolume 68 ug/L Normal [facility].; [facility]. Dopamine, Urine ratio toCRT 194 {ug/g_CRT} Normal 0 - 250 {ug/g_CRT} [facility].; [place] [employer], [employer]. Epinephrine, Urine [id number] 7 ug/d Normal 1 - 14 ug/d [facility].; [place] [employer], [employer]. Epinephrine, Urine pervolume 2 ug/L Normal [facility].; [place] [employer], [employer]. Epinephrine, Urine ratioto SCHOOL ADJUSTMENT COUNSELOR 6 {ug/g_CRT} Normal 0 - 20 {ug/g_CRT} [facility].; [place] [employer], [employer]. Hours Collected 24 {hr} Normal [facility].; [place] [employer] [facility] Metanephrines,Urine 181 {ug/24_hr} Normal 52 - 3 41 {ug/24_hr} [facility].; [place] [employer]. Norepinephrine, Urineper 24hr 34 ug/d Normal 14 - 120 ug/d [place] [employer] Norepinephrine, Urineper volume 10 ug/L Normal [place] [employer], [employer].; [place] [employer] Norepinephrine, Urineratio to SCHOOL ADJUSTMENT COUNSELOR 29 {ug/g_CRT} Normal 0 - 45 {ug/g_CRT} [place] [employer] NORMETANEPHRINES, UR 267 {ug/24_hr} Normal 88 - 444 {ug/24_hr} [place] [employer] Period (HRS) 24 {hours} Normal [facility], [employer] Total Metanephrines 448 {ug/24_hr} Normal 140 - 785 {ug/24_hr} [place] [employer], [employer].; [employer] Total Volume 3420 mL Normal [facility], [employer].; [place] [employer], [employer]. Volume (ML) 3420 mL Normal [place] [employer].; [employer], [employer]. CBC (INCLUDES DIFF/PLT)on Basophils (Bld) [#/Vol] 0.009 10*3/uL Normal 0-200 [facility] Comment on above: Performed By: #### 3 6607, 43113, 6046 #### [facility] [place] [address] Sausage Stringer: Mahesh Dotson MD Basophils/100 WBC (Bld) 0.2 % Normal [facility] Comment on above: Performed By: #### 3 0498, 86058, 9745 #### [facility] [address] [employer] Stringer: Mahesh Dotson MD Eosinophils (Bld) [#/Vol] 0.16 10*3/uL Normal 15-500 [facility] Comment on above: Performed By: #### 3 4988, 82780, 9838 #### [facility] [address] S[employer] Stringer: Mahesh Dotson MD Eosinophils/100 WBC (Bld) 3.4 % Normal [facility] Comment on above: Performed By: #### 3 6126, , 6399 #### [facility] of [place] [address] Sausage Stringer: Mahesh Dotson MD Erythrocyte distribution width (RBC) [Ratio] 12.0 % Normal 11.0-15.0 [facility] Comment on above: Performed By: #### 3 6126, , 6399 #### [facility] of [place] [address] Sausage Stringer: Mahesh Dotson MD Hematocrit (Bld) [Volume fraction] 45.1 % High 35.0-45.0 [facility] Comment on above: Performed By: #### 3 6126, , 6399 #### [facility] of [place] [address] Sausage Stringer: Mahesh Dotson MD Hemoglobin (Bld) [Mass/Vol] 14.9 g/dL Normal 11.7-15.5 [facility] Comment on above: Performed By: #### 3 6126, , 6399 #### [facility] of [place] [address] S[employer]age Stringer: Mahesh Dotson MD Lymphocytes (Bld) [#/Vol] 1.889 10*3/uL Normal 850-3900 [facility] Comment on above: Performed By: #### 3 6126, , 6399 #### [facility] of [place] [address] Sausage Stringer: Mahesh Dotson MD Lymphocytes/100 WBC (Bld) 40.2 % Normal [facility] Comment on above: Performed By: #### 3 6126, , 6399 #### [facility] of [place] [address] Sausage Stringer: Mahesh Dotson MD MCH (RBC) [Entitic mass] 29.6 pg Normal 27.0-33.0 [facility] Comment on above: Performed By: #### 3 6126, , 6399 #### [facility] of [address], [address] [place] [address] Sausage Stringer: Mahesh Dotson MD MCHC (RBC) [Mass/Vol] 33.0 g/dL Normal 32.0-36.[address] [facility] [address] [facility] Comment on above: Performed By: #### 3 61, 86944, 6399 #### [facility] of [address], [address] [place] [address] Sausage Stringer: Mahesh Dotson MD MCV (RBC) [Entitic vol] 89.7 fL Normal 80.0-100.0 [facility] Comment on above: Performed By: #### 3 6126, , 6399 #### [facility] of [place] [address] Sausage Stringer: Mahesh Dotson MD Monocytes (Bld) [#/Vol] 0.273 10*3/uL Normal 200-950 [facility] Comment on above: Performed By: #### 3 6126, , 6399 #### [facility] of [place] [address] Sausage Stringer: Mahesh Dotson MD Monocytes/100 WBC (Bld) 5.8 % Normal [facility] Comment on above: Performed By: #### 3 6126, 73305, 6399 #### [facility] of [place] [address] Sausage Stringer: Mahesh Dotson MD Neutrophils (Bld) [#/Vol] 2.369 10*3/uL Normal 8211-5581 [facility] Comment on above: Performed By: #### 3 6126, 69415, 6399 #### [facility] of [place] [address] Sausage Stringer: Mahesh Dotson MD Neutrophils/100 WBC (Bld) 50.4 % Normal [facility] Comment on above: Performed By: #### 3 6126, 49099, 6399 #### [facility] of [address] [place] [address] Sausage Stringer: Mahesh Dotson MD Platelet mean volume (Bld) [Entitic vol] 11.2 fL Normal 7.5-12.5 [facility] Comment on above: Performed By: #### 3 6127, [address]76, [id number] #### [facility] [place] [address] Sausage Stringer: Mahesh Dotson MD Platelets (Bld) [#/Vol] 156 10*3/uL Normal 140-400 [facility] Comment on above: Performed By: #### 3 6126, 69959, 6399 #### [facility] [place] [address] [employer]er: Mahesh Dotson MD RBC (Bld) [#/Vol] 5.03 10*6/uL Normal 3.80-5.10 [facility] Comment on above: Performed By: #### 3 6126, , 6399 #### [facility] [place] [address] [employer]er: Mahesh Dotson MD WBC (Bld) [#/Vol] 4.7 10*3/uL Normal 3.8-10.8 [facility] Comment on above: Performed By: #### 3 61, 72550, 6399 #### [facility] [place] [address] [employer] Stringer: Mahesh Dotson MD [facility] 08-27-2021 Albumin [Mass/Vol] 4.8 g/dL Normal 3.6-5.1 [facility] Comment on above: Performed By: #### 3 61, 96304, 6399 #### [facility] [place] [address] [employer] Stringer: Mahesh Dotson MD Albumin/Globulin [Mass ratio] 1.9 {ratio} Normal 1.0-2.5 [facility] Comment on above: Performed By: #### 3 6126, 43911, 6399 #### [facility] [address], [address] [place] [address] Saus[employer] Stringer: Mahesh Dotson MD ALP [Catalytic activity/Vol] 27 U/L Low 31-125 [facility] Comment on above: Performed By: #### 3 6127, 05464, 6399 #### [facility] [address], [address] [place] [address] [employer] Stringer: Mahesh Dotson MD ALT [Catalytic activity/Vol] 20 U/L Normal 6-29 [facility] Comment on above: Performed By: #### 3 6127, 04939, 6399 #### [facility] [address], [address] [place] [address] [employer] Stringer: Mahesh Dotson MD AST [Catalytic activity/Vol] 18 U/L Normal 10-30 [facility] Comment on above: Performed By: #### 3 61, 92160, 6399 #### [facility] [address], [address] [place] [address] S[employer] Stringer: Mahesh Dotson MD Bilirubin [Mass/Vol] 1.5 mg/dL High 0.2-1.2 [facility] Comment on above: Performed By: #### 3 6127, 66271, 6399 #### [facility] [place] [address] S[employer] Stringer: Mahesh Dotson MD BUN/CREATININE RATIO NOT APPLICABLE Normal 6-22 [facility] Comment on above: Performed By: #### 3 6127, 97316, 6399 #### [facility] [place] [address] [employer] Stringer: Mahesh Dotson MD Calcium [Mass/Vol] 9.9 mg/dL Normal 8.6-10.2 [facility] Comment on above: Performed By: #### 3 61, 12812, 6399 #### [facility] [place] [address] [employer] Stringer: Mahesh Dotson MD Chloride [Moles/Vol] 105 mmol/L Normal 98-110 [facility] Comment on above: Performed By: #### 3 6127, 86394, 6399 #### [facility] [place] [address] S[employer] Stringer: Mahesh Dotson MD CO2 [Moles/Vol] 26 mmol/L Normal 20-32 [facility] Comment on above: Performed By: #### 3 6127, 49662, 6399 #### [facility] [address], [address] [place] [address] Sausage Stringer: Mahesh Dotson MD Creatinine [Mass/Vol] 0.76 mg/dL Normal 0.50-1.[address] [facility] Comment on above: Performed By: #### 3 6127, 11133, 6399 #### [facility] [address], [address] [place] [address] Sausage Stringer: Mahesh Dotson MD eGFR NON-AFR. TRINIDADIAN 102 mL/min/1.73m2 Normal > OR = 60 [facility] Comment on above: Performed By: #### 3 61, 52289, 6399 #### [facility] [place] [address] S[employer] Stringer: Mahesh Dotson MD GFR/1.73 sq M.predicted among blacks MDRD (S/P/Bld) [Vol rate/Area] 118 mL/min/{1.73_m2} Normal > OR = 60 [facility] Comment on above: Performed By: #### 3 6127, 97608, 6399 #### [facility] [place] [address] S[employer] Stringer: Mahesh Dotson MD Globulin (S) [Mass/Vol] 2.5 g/dL Normal 1.9-3.7 [facility] Comment on above: Performed By: #### 3 6127, 98658, 6399 #### [facility] [place] [address] S[employer] Stringer: Mahesh Dotson MD Glucose [Mass/Vol] 102 mg/dL High 65-99 [facility] Comment on above: Result Comment: Fasting reference interval For someone without known diabetes, a glucose value between 100 and 125 mg/dL is consistent with prediabetes and should be confirmed with a follow-up test. Performed By: #### 3 61, 56562, 6399 #### [facility] [place] [address] Saus[employer] Stringer: Mahesh Dotson MD Potassium [Moles/Vol] 4.2 mmol/L Normal 3.5-5.[address] [facility] [address] [facility] Comment on above: Performed By: #### 3 6126, 04009, 6399 #### [facility] [place] [address] S[employer] Stringer: Mahesh Dotson MD Protein [Mass/Vol] 7.3 g/dL Normal 6.1-8.1 [facility] Comment on above: Performed By: #### 3 6126, 91389, 6399 #### [facility] [place] [address] S[employer] Stringer: Mahesh Dotson MD Sodium [Moles/Vol] 140 mmol/L Normal 135-146 [facility] Comment on above: Performed By: #### 3 61, 61247, 6399 #### [facility] [place] [address] S[employer] Stringer: Mahesh Dotson MD Urea nitrogen [Mass/Vol] 15 mg/dL Normal 7-25 [facility] Comment on above: Performed By: #### 3 61, 30239, 6399 #### [facility] [place] [address] S[employer] Stringer: Mahesh Dotson MD CORTISOL, TOTALon 08-27-2021 CORTISOL, TOTAL 24.1 mcg/dL [facility] [employer] Comment on above: Result Comment: Refe rence Range: For 8 a.m.(7-9 a.m.) Specimen: 4.0-22.0 Reference Range: For 4 p.m.(3-5 p.m.) Specimen: 3.0-17.0 * Please interpret above results accordingly * Performed By: #### 3 6127, 75496, 6399 #### [facility] [address], [address] [place], [place] [id number] Sausage Stringer: Mahesh Dotson MD TSH W/REFLEX TO FT4on 2021 TSH W/REFLEX TO FT4 1.29 mIU/L Normal [facility] Comment on above: Result Comment: Refe rence Range > or = 20 Years 0.40-4.50 Ranges First trimester 0.26-2.66 Second trimester 0.55-2.73 Third trimester 0.43-2.91 Performed By: #### 3 6127, 02455, 6399 #### [facility] [address], [address] [place] [address] Sausage Stringer: Mahesh Dotson MD Laboratory - Chemistry and C hemistry - challengeon 08-26-2021 Albumin [Mass/Vol] 4.8 g/dL Normal 3.6 - 5.1 g/dL [facility], [facility].; [place] [employer], [facility]. Albumin/Globulin [Mass ratio] 1.9 {ratio} Normal 1.0 - 2.5 [facility], [facility].; [place] [employer] [facility], [facility]. ALP [Catalytic activity/Vol] 27 U/L Abnormal 31 - 125 U/L [facility], [facility].; [place] [employer] [facility], [facility]. ALT [Catalytic activity/Vol] 20 U/L Normal 6 - 29 U/L [facility], [facility].; [place] [employer], [facility]. AST [Catalytic activity/Vol] 18 U/L Normal 10 - 30 U/L [place] [employer] [facility], [facility].; [employer], [facility]. Bilirubin [Mass/Vol] 1.5 mg/dL Abnormal 0.2 - 1 .2 mg/dL [facility], [facility].; [employer], [facility]. Calcium [Mass/Vol] 9.9 mg/dL Normal 8.6 - 10. 2 mg/dL [facility], [facility].; [employer], [facility]. Chloride [Moles/Vol] 105 mmol/L Normal 98 - 11 0 mmol/L [facility], [facility].; [employer], [facility]. CO2 [Moles/Vol] 26 mmol/L Normal 20 - 32 mmol/L [facility]; [facility], [facility] Creatinine [Mass/Vol] 0.76 mg/dL Normal 0.50 - 1.10 mg/dL [facility]; [facility], [facility] GFR/1.73 sq M.predicted among blacks MDRD (S/P/Bld) [Vol rate/Area] 118 mL/min/{1.73_m2} Normal [facility]; [facility], [facility] Glucose [Mass/Vol] 102 mg/dL Abnormal 65 - 99 mg/dL [facility]; [facility], [facility] Potassium [Moles/Vol] 4.2 mmol/L Normal 3.5 - 5.3 mmol/L [facility]; [facility], [facility] Protein [Mass/Vol] 7.3 g/dL Normal 6.1 - 8.1 g/dL [facility]; [facility], [facility] Sodium [Moles/Vol] 140 mmol/L Normal 135 - 146 mmol/L [facility]; [facility], [facility] Urea nitrogen [Mass/Vol] 15 mg/dL Normal 7 - 25 mg/dL [facility]; [facility], [facility] Laboratory - Hematology and Cell countson 08-26-2021 Basophils (Bld) [#/Vol] 0.009 10*3/uL Normal 0 - 200 {cells/uL} [facility]; [facility] Basophils/100 WBC (Bld) 0.2 % Normal [facility]; [facility], [facility] Eosinophils (Bld) [#/Vol] 0.16 10*3/uL Normal 15 - 500 {cells/uL} [facility]; [facility], [facility] Eosinophils/100 WBC (Bld) 3.4 % Normal [facility]; [facility], [facility] Erythrocyte distribution width (RBC) [Ratio] 12.0 % Normal 11.0 - 15.0 % [facility]; [facility], [facility] Hematocrit (Bld) [Volume fraction] 45.1 % Abnormal 35.0 - 45.0 % [facility].; [facility], [facility]. Hemoglobin (Bld) [Mass/Vol] 14.9 g/dL Normal 11.7 - 15.5 g/dL [facility].; [facility], [facility]. Lymphocytes (Bld) [#/Vol] 1.889 10*3/uL Normal 850 - 3900 {cells/uL} [facility].; [facility], [facility]. Lymphocytes/100 WBC (Bld) 40.2 % Normal [facility].; [facility], [facility]. MCH (RBC) [Entitic mass] 29.6 pg Normal 27.0 - 33.0 pg [facility].; [facility], [facility]. MCHC (RBC) [Mass/Vol] 33.0 g/dL Normal 32.0 - 36.0 g/dL [facility], [facility].; [facility], [facility]. MCV (RBC) [Entitic vol] 89.7 fL Normal 80.0 - 100.0 fL [facility].; [facility], [facility]. Monocytes (Bld) [#/Vol] 0.273 10*3/uL Normal 200 - 950 {cells/uL} [facility], [facility].; [facility], [facility]. Monocytes/100 WBC (Bld) 5.8 % Normal [facility], [facility].; [facility], [facility]. Neutrophils (Bld) [#/Vol] 2.369 10*3/uL Normal 1500 - 7800 {cells/uL} [facility], [facility].; [facility], [facility]. Neutrophils/100 WBC (Bld) 50.4 % Normal [facility].; [facility], [facility]. Platelet mean volume (Bld) [Entitic vol] 11.2 fL Normal 7.5 - 12.[address] [facility], [facility].; [facility], [facility]. Platelets (Bld) [#/Vol] 156 10*3/uL Normal 140 - 400 [facility], [facility].; [facility], [facility]. RBC (Bld) [#/Vol] 5.03 10*6/uL Normal 3.80 - 5.1 0 {Million/uL} [facility]; [facility] WBC (Bld) [#/Vol] 4.7 10*3/uL Normal 3.8 - 10.8 [facility]; [facility] No Panel Informationon 08-26 BUN/CREATININE RATIO NOT APPLICABLE Normal 6 - 22 [facility]; [facility] CORTISOL, TOTAL 24.1 ug/dL Abnormal [facility]; [facility] eGFR NON-AFR. TRINIDADIAN 102 Normal [facility]; [facility] GLOBULIN 2.5 Normal 1.9 - 3.7 [facility]; [facility] TSH W/REFLEX TO FT4 1.29 {mIU/L} Normal [facility]; [facility] Lyme Ab Panel [employer]Bloton 2020 Lyme IgG Bands p93,p41,p23 Normal [facility] Comment on above: Performed By: #### L YMEWB #### [facility] [address] [place] [address] Lyme IgG WBlot NEGAT Normal Negative [facility] Comment on above: Performed By: #### L YMEWB #### [facility] [address] [place] [address] Lyme IgM Bands p41,p23 Normal [facility] Comment on above: Performed By: #### L YMEWB #### [facility] [address] [place], [place] [address] Lyme IgM WBlot POSIT Abnormal Negative [facility] Comment on above: Performed By: #### L YMEWB #### [facility] [address] [place], [place] [address] Lyme Interp Normal [facility] Comment on above: Result [...] intensity does not meet CDC criteria or 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 Faint Send out to a reference laboratory [...] required. Performed By: #### L YMEWB #### [facility] [address] [place] [id number] LYME EARLY <=30 DAYSon 11-12 Lyme IgG/IgM AB Positive Abnormal Negative [facility] Comment on above: Performed By: #### L YMEWB #### [facility] [address] [place], [place] [address] Laboratory - Chemistry and C hemistry - challengeon 11-08-2020 Albumin [Mass/Vol] 3.8 g/dL Normal 3.4 - 5.0 g/dL [facility]; [facility] Albumin [Mass/Vol] 1.1 g/dL Normal 0.9 - 1.6 [facility]; [facility] ALP [Catalytic activity/Vol] 69 U/L Normal 46 - 116 U/L [facility]; [facility] ALT [Catalytic activity/Vol] 59 U/L Normal 14 - 59 U/L [facility]; [facility] ALT No additional P-5'-P [Catalytic activity/Vol] 59 U/L Normal 14 - 59 U/L [facility]; [facility], [facility] Anion gap [Moles/Vol] 15 mmol/L Normal 10 - 20 mmol/L [facility]; [facility], [facility] AST [Catalytic activity/Vol] 42 U/L Abnormal 13 - 39 U/L [facility]; [facility] Bilirubin [Mass/Vol] 0.8 mg/dL Normal 0.2 - 1 .0 mg/dL [facility]; [facility], [facility] Bilirubin [Mass/Vol] Negative Normal [facility]; [facility], [facility] Bilirubin Ql (U) Negative Normal [facility]; [facility], [facility] Calcium [Mass/Vol] 8.9 mg/dL Normal 8.5 - 10. 1 mg/dL [facility]; [facility], [facility] Chloride [Moles/Vol] 101 mmol/L Normal 98 - 10 7 mmol/L [facility]; [facility], [facility] CO2 [Moles/Vol] 28.6 mmol/L Normal 21.0 - 32.0 mmol/L [facility]; [facility], [facility] Comprehensive metabolic 2000 panel CMP with eGFR Normal [facility]; [facility], [facility] Creatinine [Mass/Vol] 0.68 mg/dL Normal 0.55 - 1.02 mg/dL [facility]; [facility] [employer]. CRP [Mass/Vol] 13.50 mg/dL Abnormal 0.00 - 0.90 mg/dL [facility].; [place] [employer] [facility], [facility]. GFR/1.73 sq M.predicted among blacks MDRD (S/P/Bld) [Vol rate/Area] mL/min/{1.73_m2} Normal 60 - 999 {ML/MINUTE} [facility], [facility].; [place] [employer] [facility], [facility]. GFR/1.73 sq M.predicted MDRD (S/P/Bld) [Vol rate/Area] mL/min/{1.73_m2} Normal 60 - 999 {ML/MINUTE} [facility], [facility].; [place] [employer], [employer]. Globulin (S) [Mass/Vol] 3.6 g/dL Normal 1.5 - 3.8 g/dL [facility], [facility].; [place] [employer], [employer]. Glucose [Mass/Vol] 95 mg/dL Normal 74 - 106 mg/dL [facility].; [place] [employer] Glucose [Mass/Vol] NORM Normal [facility].; [place] [employer], [employer]. Ketones Ql (U) Negative Normal [facility].; [place] [employer] [facility], [employer]. pH (Bld) 8 [pH] Normal [facility].; [place] [employer], [employer]. pH (U) 5.5 [pH] Normal [facility], [facility].; [place] [employer], [employer]. Potassium [Moles/Vol] 4.0 mmol/L Normal 3.5 - 5.1 mmol/L [facility], [facility].; [employer] Protein [Mass/Vol] 7.4 g/dL Normal 6.4 - 8.2 g/dL [facility].; [place] [employer], [employer]. Protein [Mass/Vol] 100 g/dL Abnormal [facility] [employer] [facility].; [place] [employer] Sodium [Moles/Vol] 141 mmol/L Normal 136 - 145 mmol/L [facility], [facility].; [employer] Specific gravity (U) [Rel density] <1.005 Normal [facility]; [facility], [facility] Urea nitrogen [Mass/Vol] 8 mg/dL Normal 7 - 18 mg/dL [facility]; [facility], [facility] Urea nitrogen/Creatinine [Mass ratio] 12 {ratio} Normal 0 - 30 {ratio} [facility]; [facility], [facility] Urobilinogen Qn (U) 0.2 mg/dL Normal [facility]; [facility] Laboratory - Hematology and Cell countson 11-08-2020 Basophils (Bld) [#/Vol] 0.00 {3/UL} Normal 0.00 - 0.10 {3/UL} [facility]; [facility], [facility] Basophils/100 WBC (Bld) 0.4 % Normal 0.0 - 2.0 % [facility]; [facility], [facility] CBC W Auto Differential panel (Bld) CBC + DIFF Normal [facility]; [facility] Eosinophils (Bld) [#/Vol] 0.00 {3/UL} Normal 0.00 - 0.50 {3/UL} [facility]; [facility], [facility] Eosinophils/100 WBC (Bld) 0.7 % Normal 0.0 - 7.0 % [facility]; [facility], [facility] Erythrocyte distribution width (RBC) [Ratio] 13.0 % Normal 12.0 - 15.6 % [facility]; [facility], [facility] ESR (Bld) [Velocity] 8 mm/h Normal 0 - 30 mm/h [facility]; [facility], [facility] Hematocrit (Bld) [Volume fraction] 40.3 % Normal 34.0 - 46.0 % [facility]; [facility], [facility] Hemoglobin (Bld) [Mass/Vol] 13.7 g/dL Normal 12.0 - 16.0 g/dL [facility], [facility] Hemoglobin Ql (U) large Abnormal [facility]; [facility], [facility] Lymphocytes (Bld) [#/Vol] 0.40 {3/UL} Abnormal 0.80 - 2.80 {3/UL} [employer], [employer], [employer]. Lymphocytes/100 WBC (Bld) 11.5 % Abnormal 20.0 - 45.0 % [place] [employer], [employer].; [employer] MCH (RBC) [Entitic mass] 30 pg Normal 27 - 33 pg [place] [employer] MCHC (RBC) [Mass/Vol] 34 {X10_3} Normal 32 - 3 6 {X10_3} [employer] MCV (RBC) [Entitic vol] 87 fL Normal 80 - 99 fL [employer], [employer].; [employer] Monocytes (Bld) [#/Vol] 0.30 {3/UL} Normal 0.20 - 1.00 {3/UL} [employer] Monocytes/100 WBC (Bld) 8.9 % Normal 0.0 - 10.0 % [employer] Morphology Polo (Bld) [Interp] N/A Normal [employer].; [employer] Neutrophils (Bld) [#/Vol] 2.70 {3/UL} Normal 1.50 - 7.10 {3/UL} [employer] Neutrophils/100 WBC (Bld) 78.5 % Abnormal 46.0 - 76.0 % [employer].; [employer] Platelet mean volume (Bld) [Entitic vol] 9.2 fL Normal 6.6 - 10.5 fL [employer] Platelets (Bld) [#/Vol] 121 {3/UL} Abnormal 150 - 450 {3/UL} [employer], [employer].; [employer] RBC (Bld) [#/Vol] 4.64 {6/UL} Normal 4.10 - 5.3 0 {6/UL} [employer] WBC (Bld) [#/Vol] 3.4 {3/UL} Abnormal 4.5 - 10.8 {3/UL} [employer] WBC (Bld) [#/Vol] 25 10*3/uL Abnormal [employer].; [employer] Laboratory - Microbiology an d Antimicrobial susceptibilityon 11-08-2020 B. burgdorferi Ab (S) [Interp] Positive Abnormal [employer]; [employer]. B. burgdorferi IgG+IgM Qn (S) LYME EARLY (SIGNS/SYMP <=30 DAYS) [CCL] Normal [employer]; [employer] Work Phone: Bacteria identified Cx Nom (U) CULTURE URINE Normal [employer] [employer]; [employer] Bacteria identified Cx Nom (Unsp spec) NONE Normal [employer]. SARS-CoV-2 (COVID-19) RNA JOSTIN+probe Ql (Unsp spec) Negative Normal [employer]; [employer]. Laboratory - Specimen inform ationon 11-08-2020 Appearance (U) clear Normal [facility] [employer]; [employer]. Clarity (U) clear Normal [employer]. Color (U) red Normal [place] [employer]. Specimen type Nom (Spec) Clean catch Normal [employer]; [employer]. Laboratory - Urinalysison Crystals LM Nom (Urine sed) NONE Normal [employer].; [employer]. Glucose Test strip (U) [Mass/Vol] Negative Normal [employer]. Leukocyte esterase Test strip Ql (U) trace Normal [employer].; [employer]. Nitrite Ql (U) Negative Normal [facility] [employer]. Protein Ql (U) 100 mg/dL Abnormal [facility] [employer]. Urinalysis dipstick W Reflex Microscopic panel (U) URINALYSIS WITH MICROSCOPY Normal [employer].; [employer] Yeast LM Ql (Urine sed) NONE Normal [employer].; [employer]. No Panel Informationon 11-08 AGE 34 {years} Normal [employer]. Amorphous NONE Normal [employer]. Blood 250 Abnormal [employer].; [employer]. Casts NONE Normal [employer].; [employer]. Epi Cells OCC Normal [employer].; [employer]. Ketone Negative Normal [employer].; [employer]. MANUAL DIFF N/A Normal [employer].; [employer]. Mucous NONE Normal [employer].; [employer]. Rbc TNTC Normal 0 - 3 [employer]; [employer]. SEND TO PHARMACY? NO Normal [employer]. Sp [place] 1.010 Normal [employer]. Urobilinog NORM Normal [employer]; [employer]. Wbc 1-5 Normal 0 - 5 [employer]. Final Surgical Pathology Rep apolinar 11-19-2018 Final Surgical Pathology Report . 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 NEGATIVE FOR MALIGNANCY. NUMEROUS MICROCALCIFICATIONS. COMMENT: [facility] - A# [id number] CLINICAL INFORMATION: BREAST MASS SPECIMEN: A BRST, [...] neutral buffered formalin Dictated by Ashlyn NEWELL ([facility]) MICROSCOPIC DESCRIPTION: Slides reviewed. Electronically Signed by Pathology Report verified by [facility] Electronically signed by GARRY SUAREZ DO Sign out Date: 11/19/2018 12:09 Performing Lab: [facility], [address] [place] [address] ([place]) Comment on above: Performed By: #### S PFR #### [place] [id number] Laboratory - Microbiology an d Antimicrobial susceptibilityon 07-21-2012 S. pyogenes Ag EIA Ql (Throat) Positive Abnormal [employer], [employer], [employer]. No Panel Informationon 11-18 MONOSPOT TEST (IN HOUSE) Negative Normal [employer].; [employer], [employer]. Laboratory - Microbiology an d Antimicrobial susceptibilityon 11-14-2010 S. pyogenes Ag EIA Ql (Throat) Negative Normal [employer], [employer].; [employer], [employer]. Laboratory - Chemistry and C hemistry - challengeon 01-29-2010 Calcium [Mass/Vol] 8.8 mg/dL Normal 8.6 - 10. 2 mg/dL [employer] [facility], [facility].; [employer], [employer]. Chloride [Moles/Vol] 104 mmol/L Normal 98 - 11 0 mmol/L [employer], [facility].; [employer], [employer]. CO2 [Moles/Vol] 22 mmol/L Normal 21 - 33 mmol/L [facility] [employer] [facility], [facility].; [employer], [employer] Creatinine [Mass/Vol] 0.61 mg/dL Normal 0.57 - 1.03 mg/dL [employer], [employer].; [employer], [employer] Free T4 [Mass/Vol] 1.2 ng/dL Normal 0.8 - 1.8 ng/dL [employer], [employer].; [employer], [employer]. GFR/1.73 sq M.predicted among blacks MDRD (S/P/Bld) [Vol rate/Area] mL/min/{1.73_m2} Normal [facility], [facility] Glucose [Mass/Vol] 79 mg/dL Normal 65 - 99 mg/dL [facility].; [facility], [facility] Potassium [Moles/Vol] 4.0 mmol/L Normal 3.5 - 5.3 mmol/L [facility]; [facility], [facility] Sodium [Moles/Vol] 137 mmol/L Normal 135 - 146 mmol/L [facility]; [facility], [facility] TSH Qn 1.99 m[IU]/L Normal 0.40 - 4.50 {mIU/L} [facility]; [facility], [facility] Urea nitrogen [Mass/Vol] 9 mg/dL Normal 7 - 25 mg/dL [facility]; [facility], [facility] Urea nitrogen/Creatinine [Mass ratio] 14.8 mg/mg Normal 6 - 22 [facility]; [facility] Laboratory - Hematology and Cell countson 01-29-2010 Basophils (Bld) [#/Vol] 10 {Cells}/uL Normal 0 - 200 {Cells}/uL [facility]; [facility], [facility] Basophils/100 WBC (Bld) 0 % Normal 0 - 2 % [facility].; [facility], [facility]. Eosinophils (Bld) [#/Vol] 40 {Cells}/uL Normal 15 - 500 {Cells}/uL [facility].; [facility], [facility] Eosinophils/100 WBC (Bld) 1 % Normal 0 - 8 % [facility]; [facility], [facility] Erythrocyte distribution width (RBC) [Ratio] 12.6 % Normal 11.0 - 15.0 % [facility], [facility].; [facility], [facility] Hematocrit (Bld) [Volume fraction] 37.0 % Normal 35.0 - 45.0 % [facility], [facility].; [facility], [facility] Hemoglobin (Bld) [Mass/Vol] 13.0 g/dL Normal 11.7 - 15.5 g/dL [facility]; [facility], [employer] Lymphocytes (Bld) [#/Vol] 890 {Cells}/uL Normal 850 - 3900 {Cells}/uL [facility].; [facility], [facility]. Lymphocytes/100 WBC (Bld) 12 % Normal 15 - 49 % [facility].; [facility], [facility]. MCH (RBC) [Entitic mass] 32.7 pg Normal 27.0 - 33.0 PG [facility].; [facility], [facility]. MCHC (RBC) [Mass/Vol] 35.0 g/dL Normal 32.0 - 36.0 g/dL [facility].; [facility], [facility]. MCV (RBC) [Entitic vol] 93.3 fL Normal 80.0 - 100.0 fL [facility]; [facility], [facility]. Monocytes (Bld) [#/Vol] 340 {Cells}/uL Normal 200 - 950 {Cells}/uL [facility].; [facility], [facility]. Monocytes/100 WBC (Bld) 5 % Normal 0 - 13 % [facility].; [facility], [facility]. Neutrophils (Bld) [#/Vol] 6200 {Cells}/uL Normal 1500 - 7800 {Cells}/uL [facility].; [facility], [facility]. Neutrophils/100 WBC (Bld) 82 % Normal 38 - 80 % [facility], [facility].; [facility], [facility]. Platelets (Bld) [#/Vol] 148 10*3/uL Normal 140 - 400 10*3/uL [facility].; [facility], [facility]. Platelets LM Ql (Bld) NORMAL Normal [facility]; [facility], [facility] RBC (Bld) [#/Vol] 3.97 10*6/uL Normal 3.80 - 5.1 0 10*6/uL [facility].; [facility], [facility]. RBC morphology finding Nom (Bld) NORMAL Normal [facility].; [facility], [facility] WBC (Bld) [#/Vol] 7.5 10*3/uL Normal 3.8 - 10.8 10*3/uL [facility].; [facility], [facility]. No Panel Informationon 01-29 EGFR NON-AFR. TRINIDADIAN >60 Normal [facility].; [facility], [facility] Vital Signs Date Time Vital Sign Value Performing Clinician Facility 10-12-2024 13:32-0400 Body height 172.72 cm Edd Verdin PA Work Phone: [phone] [place] [address] 10-12-2024 13:30-0400 Body mass index (BMI) [Ratio] 20.1 kg/m2 Edd Verdin PA Work Phone: [phone])[phone] [address] 10-12-2024 13:30-0400 Body weight 59.98 kg Edd Verdin PA Work Phone: 8(685)476-260133 [place] [address] 10-12-2024 13:30-0400 Diastolic blood pressure 85 mm[Hg] Edd Verdin PA Work Phone: 6(278)477-292833 [place] [address] 10-12-2024 13:30-0400 Systolic blood pressure 126 mm[Hg] Edd Verdin PA Work Phone: 8([phone])298-577027 [address] 08-24-2024 09:40-0400 Body height 172.72 cm Edd Verdin PA Work Phone: 6(498)125-631627 [address] 08-24-2024 09:38-0400 Body mass index (BMI) [Ratio] 20.1 kg/m2 Edd Verdin PA Work Phone: 7(103)[phone] [place] [address] 08-24-2024 09:38-0400 Body weight 60.1 kg Edd Verdin PA Work Phone: 1(898)[phone] [address] 08-24-2024 09:38-0400 Diastolic blood pressure 79 mm[Hg] Edd Verdin PA Work Phone: 0(404)[phone] [place] [address] 08-24-2024 09:38-0400 Systolic blood pressure 121 mm[Hg] Edd Verdin PA Work Phone: 0(518)[phone] [place] [address] 10-30-2023 08:51-0400 Body height 175.26 cm Sonja Salomon MA [facility], [facility].; [facility]. 10-30-2023 08:51-0400 Body mass index (BMI) [Ratio] 19.35 kg/m2 Sonja Salomon MA [facility].; [facility]. 10-30-2023 08:51-0400 Body surface area Derived from formula 1.73 m2 Sonja Salomon MA [facility].; [facility]. 10-30-2023 08:51-0400 Body temperature 97.6 [degF] Sonaj Salomon MA [facility]; [facility]. Comment on above: Method: Tympanic 10-30-2023 08:51-0400 Body weight 59.42 kg Sonja Salomon MA [facility]; [facility]. 10-30-2023 08:51-0400 Diastolic blood pressure 80 mm[Hg] Sonja Salomon MA [facility].; [facility]. Comment on above: Patient Position: Sitting; Cuff Location : Left Arm; Cuff Size: Standard 10-30-2023 08:51-0400 Heart rate 98 /min Sonja Salomon MA [facility].; [facility]. Comment on above: Pattern: Regular 10-30-2023 08:51-0400 Inhaled oxygen concentration 21 % Sonja Salomon MA [facility]; [facility]. Comment on above: Room air 10-30-2023 08:51-0400 SaO2% (BldA) [Mass fraction] 99 % Sonja Salomon MA [facility].; [facility]. 10-30-2023 08:51-0400 Systolic blood pressure 119 mm[Hg] Sonja Salomon MA [facility].; [facility]. Comment on above: Patient Position: Sitting; Cuff Location : Left Arm; Cuff Size: Standard 06-19-2023 10:44-0500 Body height 175.26 cm Shruti [facility], [facility].; [facility]. 06-19-2023 10:44-0500 Body mass index (BMI) [Ratio] 19.2 kg/m2 [facility].; [facility]. 06-19-2023 10:44-0500 Body surface area Derived from formula 1.72 m2 [facility].; [facility], [facility]. 06-19-2023 10:44-0500 Body temperature 97.9 [degF] [facility], [employer]. Comment on above: Method: Tympanic 06-19-2023 10:44-0500 Body weight 58.97 kg [facility].; [facility], [facility]. 06-19-2023 10:44-0500 Diastolic blood pressure 71 mm[Hg] [facility], [employer]. Comment on above: Patient Position: Sitting; Cuff Location : Left Arm; Cuff Size: Standard 06-19-2023 10:44-0500 Heart rate 91 /min [facility], [facility]. Comment on above: Pattern: Regular 06-19-2023 10:44-0500 Systolic blood pressure 110 mm[Hg] [facility].; [facility], [facility]. Comment on above: Patient Position: Sitting; Cuff Location : Left Arm; Cuff Size: Standard 02-03-2022 10:39-0400 Body height 175.26 cm Yesika Alex RN [facility], [facility].; [facility]. 02-03-2022 10:39-0400 Body mass index (BMI) [Ratio] 18.61 kg/m2 Yesika Alex RN [facility].; [facility], [facility]. 02-03-2022 10:39-0400 Body surface area Derived from formula 1.7 m2 Yesika Alex RN [facility], [facility].; [place] [employer] [facility], [employer]. 02-03-2022 10:39-0400 Body temperature 98.2 [degF] Yesika Alex RN [facility].; [place] [employer] [facility]. Comment on above: Method: Tympanic 02-03-2022 10:39-0400 Body weight 57.15 kg Yesika Alex RN [facility], [facility].; [place] [employer] [facility]. 02-03-2022 10:39-0400 Diastolic blood pressure 70 mm[Hg] Yesika Alex RN [facility], [facility].; [employer]. Comment on above: Patient Position: Sitting; Cuff Location : Left Arm; Cuff Size: Standard 02-03-2022 10:39-0400 Heart rate 120 /min Yesika Alex RN [facility], [facility].; [employer]. Comment on above: Pattern: Regular 02-03-2022 10:39-0400 Systolic blood pressure 102 mm[Hg] Yesika Alex RN [facility].; [place] [employer]. Comment on above: Patient Position: Sitting; Cuff Location : Left Arm; Cuff Size: Standard 08-26-2021 10:11040 Body height 175.26 cm Heidi Perez LPN [facility], [facility].; [place] [employer] [facility]. 08-26-2021 10:11-0400 Body mass index (BMI) [Ratio] 18.9 kg/m2 Heidi Perez LPN [facility], [facility].; [place] [employer] [facility], [facility]. 08-26-2021 10:11-0400 Body surface area Derived from formula 1.71 m2 Heidi Perez LPN [facility], [facility].; [place] [employer] [facility]. 08-26-2021 10:11-0400 Body weight 58.06 kg Heidi Perez LPN [facility].; [employer] [facility]. 08-26-2021 10:11-0400 Diastolic blood pressure 81 mm[Hg] Heidi Perez LPN [facility].; [employer]. Comment on above: Patient Position: Sitting; Cuff Location : Left Arm; Cuff Size: Standard 08-26-2021 10:11-0400 Heart rate 108 /min Heidi Perez LPN [facility].; [employer]. Comment on above: Pattern: Regular 08-26-2021 10:11-0400 Systolic blood pressure 116 mm[Hg] Heidi Perez LPN [facility].; [employer]. Comment on above: Patient Position: Sitting; Cuff Location : Left Arm; Cuff Size: Standard 11-08-2020 10:32-0400 Body height 175.26 cm Edd J Verdin PA-C Work Phone: [employer]; [employer]. 11-08-2020 10:32-0400 Body mass index (BMI) [Ratio] 18.16 kg/m2 Edd J Verdin PA-C Work Phone: [employer]; [employer]. 11-08-2020 10:32-0400 Body surface area Derived from formula 1.68 m2 Edd J Verdin PA-C Work Phone: [employer]; [employer]. 11-08-2020 10:32-0400 Body temperature 100.9 [degF] Edd Luis Verdin PA-C Work Phone: [employer]; [employer]. Comment on above: Method: Tympanic 11-08-2020 10:32-0400 Body weight 55.79 kg Edd J Verdin PA-C Work Phone: [employer].; [employer]. 11-08-2020 10:32-0400 Diastolic blood pressure 71 mm[Hg] Edd J Verdin PA-C Work Phone: [employer]; [employer]. Comment on above: Patient Position: Sitting; Cuff Location : Left Arm; Cuff Size: Standard 11-08-2020 10:32-0400 Heart rate 140 /min Edd J Verdin PA-C Work Phone: [employer]; [employer]. Comment on above: Pattern: Regular 11-08-2020 10:32-0400 Inhaled oxygen concentration 20 % Edd J Verdin PA-C Work Phone: [employer]; [employer]. Comment on above: Room air 11-08-2020 10:32-0400 Inhaled oxygen concentration 21 % Edd Verdin PA-C Work Phone: [employer]; [employer]. Comment on above: Room air 11-08-2020 10:32-0400 SaO2% (BldA) [Mass fraction] 100 % Edd Luis Verdin PA-C Work Phone: [employer]; [employer]. 11-08-2020 10:32-0400 Systolic blood pressure 111 mm[Hg] Edd Verdin PA-C Work Phone: [employer]; [employer]. Comment on above: Patient Position: Sitting; Cuff Location : Left Arm; Cuff Size: Standard 02-21-2019 11:27-0500 Body height 175.26 cm Janet Faye LPN [place] [employer].; [employer]. 02-21-2019 11:27-0500 Body mass index (BMI) [Ratio] 23.18 kg/m2 Janet Faye LPN [employer].; [employer]. 02-21-2019 11:27-0500 Body surface area Derived from formula 1.86 m2 Janet Faye LPN [employer].; [employer]. 02-21-2019 11:27-0500 Body temperature 98.5 [degF] Janet Faye LPN [employer].; [employer]. Comment on above: Method: Tympanic 02-21-2019 11:27-0500 Body weight 71.22 kg Janet Faye LPN [employer].; [employer] 02-21-2019 11:27-0500 Diastolic blood pressure 74 mm[Hg] Janet Faye LPN [employer].; [employer]. Comment on above: Patient Position: Sitting; Cuff Location : Left Arm; Cuff Size: Standard 02-21-2019 11:27-0500 Heart rate 111 /min Janet Abdallalexi [employer]ERN[employer]NDEZN [employer].; [employer]. Comment on above: Pattern: Regular 02-21-2019 11:27-0500 Inhaled oxygen concentration 20 % Janet Salvadorcarolin [facility] Center[facility] Inc.; [employer]. Comment on above: Room air 02-21-2019 11:27-0500 Inhaled oxygen concentration 21 % Janet Abdallalexi [facility].; [employer]. Comment on above: Room air 02-21-2019 11:27-0500 SaO2% (BldA) [Mass fraction] 98 % Janet Mainstay Medicalmariocarolin [facility] Center[facility].; [employer]. 02-21-2019 11:27-0500 Systolic blood pressure 110 mm[Hg] Janet Rodriguezroxane [facility].; [employer]. Comment on above: Patient Position: Sitting; Cuff Location : Left Arm; Cuff Size: Standard 10-05-2014 10:00-0400 Body height 175.26 cm EddGraduway-C Work Phone: [employer]; [employer]. 10-05-2014 10:00-0400 Body mass index (BMI) [Ratio] 20.53 kg/m2 [employer] Work Phone: [employer]; [employer]. 10-05-2014 10:00-0400 Body surface area Derived from formula 1.77 m2 Agitar PA-C Work Phone: [employer]; [employer]. 10-05-2014 10:00-0400 Body temperature 97.7 [degF] Edd Verdin PA-C Work Phone: [employer]; [employer]. Comment on above: Method: Tympanic 10-05-2014 10:00-0400 Body weight 63.05 kg Edd Verdin PA-C Work Phone: [employer]; [employer]. 10-05-2014 10:00-0400 Diastolic blood pressure 83 mm[Hg] Edd Verdin PA-C Work Phone: [employer]; [employer]. Comment on above: Patient Position: Sitting; Cuff Location : Left Arm; Cuff Size: Standard 10-05-2014 10:00-0400 Heart rate 106 /min Edd Verdin PA-C Work Phone: [employer]; [employer]. Comment on above: Pattern: Regular 10-05-2014 10:00-0400 Inhaled oxygen concentration 20 % Edd Verdin PA-C Work Phone: [employer]; [employer]. Comment on above: Room air 10-05-2014 10:00-0400 Inhaled oxygen concentration 21 % Edd Verdin PA-C Work Phone: [employer]; [employer]. Comment on above: Room air 10-05-2014 10:00-0400 SaO2% (BldA) [Mass fraction] 100 % Edd Verdin PA-C Work Phone: [employer]; [employer]. 10-05-2014 10:00-0400 Systolic blood pressure 131 mm[Hg] Edd Verdin PA-C Work Phone: [employer]; [employer]. Comment on above: Patient Position: Sitting; Cuff Location : Left Arm; Cuff Size: Standard 03-01-2014 10:51-0500 Body height 175.26 cm Janet Faye LPN [employer].; [employer]. 03-01-2014 10:51-0500 Body mass index (BMI) [Ratio] 19.81 kg/m2 Janet Faye LPN [employer].; [employer]. 03-01-2014 10:51-0500 Body surface area Derived from formula 1.74 m2 Janet Welexi [facility], [facility].; [place] [employer] 03-01-2014 10:51-0500 Body temperature 99.6 [degF] Janet Abdallalexi [facility], [facility].; [employer] Comment on above: Method: Tympanic 03-01-2014 10:51-0500 Body weight 60.84 kg Janet Welexi [facility], [facility].; [employer] 03-01-2014 10:51-0500 Diastolic blood pressure 81 mm[Hg] Janet Welexi [facility], [facility].; [employer], [employer]. Comment on above: Patient Position: Sitting; Cuff Location : Left Arm; Cuff Size: Standard 03-01-2014 10:51-0500 Heart rate 125 /min Janet Rmlexi [facility], [facility].; [employer]. Comment on above: Pattern: Regular 03-01-2014 10:51-0500 Inhaled oxygen concentration 20 % Janet Welexi [facility], Inc.; [employer], [employer]. Comment on above: Room air 03-01-2014 10:51-0500 Inhaled oxygen concentration 21 % Janet Rmlexi [facility], [facility].; [employer], [employer]. Comment on above: Room air 03-01-2014 10:51-0500 SaO2% (BldA) [Mass fraction] 98 % Janet Rmlexi [facility], [facility].; [employer]. 03-01-2014 10:51-0500 Systolic blood pressure 131 mm[Hg] Jante Welexi [facility], Inc.; [employer]. Comment on above: Patient Position: Sitting; Cuff Location : Left Arm; Cuff Size: Standard 07-21-2012 10:04-0400 Body height 175.26 cm Heidi Perez [facility], Inc.; [place] [employer]. 07-21-2012 10:04-0400 Body mass index (BMI) [Ratio] 20.08 kg/m2 Heidi Perez [facility] Center[facility] Center[facility].; [employer]. 07-21-2012 10:04-0400 Body surface area Derived from formula 1.75 m2 Heidi Perez [facility].; [employer]. 07-21-2012 10:04-0400 Body temperature 100.7 [degF] Heidi Jacinto Ana [facility] CenterSte[facility]10 [facility] Center[facility].; [employer]. Comment on above: Method: Tympanic 07-21-2012 10:04-0400 Body weight 61.69 kg Heidi Perez [facility] [employer] [facility] Center[facility].; [employer]. 07-21-2012 10:04-0400 Diastolic blood pressure 76 mm[Hg] Heidi Perez [facility] [employer] [facility] Center[facility].; [employer]. Comment on above: Patient Position: Sitting; Cuff Location : Left Arm; Cuff Size: Standard 07-21-2012 10:04-0400 Heart rate 135 /min Heidi Perez [facility] [employer] [facility] CenterSecret [facility].; [employer]. Comment on above: Pattern: Regular 07-21-2012 10:04-0400 Systolic blood pressure 128 mm[Hg] Heidi Perez [facility] [employer] [facility] Center[facility].; [employer]. Comment on above: Patient Position: Sitting; Cuff Location : Left Arm; Cuff Size: Standard 11-18-2010 11:40-0400 Body height 175.26 cm Edd [employer]linx-[email or web address] Work Phone: [employer].; [employer]. 11-18-2010 11:40-0400 Body mass index (BMI) [Ratio] 19.64 kg/m2 [employer]Dataresolve [employer] PA-C Work Phone: [employer].; [employer] 11-18-2010 11:40-0400 Body surface area Derived from formula 1.74 m2 [employer]Data[employer] PA-C Work Phone: [employer]; [employer]. 11-18-2010 11:40-0400 Body temperature 97.6 [degF] Edd Verdin PA-C Work Phone: [employer].; [employer]. Comment on above: Method: Tympanic 11-18-2010 11:40-0400 Body weight 60.33 kg Edd Verdin PA-C Work Phone: [employer].; [employer]. 11-18-2010 11:40-0400 Diastolic blood pressure 84 mm[Hg] Edd Verdin PA-C Work Phone: [employer].; [employer]. Comment on above: Patient Position: Sitting; Cuff Location : Left Arm; Cuff Size: Standard 11-18-2010 11:40-0400 Heart rate 108 /min Edd Verdin PA-C Work Phone: [employer]; [employer]. Comment on above: Pattern: Regular 11-18-2010 11:40-0400 Systolic blood pressure 124 mm[Hg] Edd Verdin PA-C Work Phone: [employer]; [employer]. Comment on above: Patient Position: Sitting; Cuff Location : Left Arm; Cuff Size: Standard 11-14-2010 14:15-0400 Body temperature 98.2 [degF] Heidi Perez RESEARCH/PROGRAM DIRECTOR [facility] Comment on above: Method: Tympanic 11-14-2010 14:15-0400 Body weight 61.69 kg Heidi Perez LPN [facility] 11-14-2010 14:15-0400 Diastolic blood pressure 76 mm[Hg] Heidi Perez RESEARCH/PROGRAM DIRECTOR [facility] Comment on above: Patient Position: Sitting; Cuff Location : Left Arm; Cuff Size: Standard 11-14-2010 14:15-0400 Heart rate 115 /min Heidi Perez LPN [facility] Comment on above: Pattern: Regular 11-14-2010 14:15-0400 Systolic blood pressure 123 mm[Hg] Heidi Perez LPN [facility] Comment on above: Patient Position: Sitting; Cuff Location : Left Arm; Cuff Size: Standard 01-29-2010 09:19-0400 Body height 175.26 cm Edd Verdin PA-C Work Phone: [facility]; [facility] 01-29-2010 09:19-0400 Body mass index (BMI) [Ratio] 20.38 kg/m2 Edd Verdin PA-C Work Phone: [facility] 01-29-2010 09:19-0400 Body surface area Derived from formula 1.76 m2 Edd Verdin PA-C Work Phone: [facility]; [facility] 01-29-2010 09:19-0400 Body weight 62.6 kg Edd Verdin PA-C Work Phone: [facility] 01-29-2010 09:19-0400 Diastolic blood pressure 76 mm[Hg] Edd Verdin PA-C Work Phone: [facility]; [facility] Comment on above: Patient Position: Sitting; Cuff Location : Left Arm; Cuff Size: Standard 01-29-2010 09:19-0400 Heart rate 92 /min Edd Verdin PA-C Work Phone: [facility]; [facility]. Comment on above: Pattern: Regular 01-29-2010 09:19-0400 Systolic blood pressure 130 mm[Hg] Edd Verdin PA-C Work Phone: [facility] Comment on above: Patient Position: Sitting; Cuff Location : Left Arm; Cuff Size: Standard Encounters Encounter Date Encounter Type Care Provider Facility Start: 10-12-[address] Janet Rios DO -Lab [facility] Start: 10-12-2024 End: 10-12-2024 ambulatory Edd Verdin PA Work Phone: [facility] Start: 10-12-2024 End: 10-12-[address] Janet Rios DO -[facility] Work Phone: Start: 10-07-2024 Encounter for genera l adult medical examination without abnormal findings [address] [place] [address] Start: 10-03-2024 End: 10-03-2024 ambulatory Edd Verdin PA Work Phone: -Laboratory Start: 10-03-2024 End: 10-03-2024 Patient encounter procedure Eddbritt Malaveer PA Work Phone: -Laboratory Work Phone: Start: 10-03-2024 End: 10-03-[address] Facility:[facility] Start: 08-31-2024 End: 08-31-2024 Patient encounter procedure Joelle Muniz CNM -[facility] Start: 08-31-2024 End: 08-31-2024 ambulatory Edd Verdin PA Facility:[facility] Start: 08-24-2024 Encounter for gynecological examination (general) (routine) without abnormal findings Joelle Muniz [facility] Start: 08-24-2024 End: 08-24-2024 Patient encounter procedure Joelle Muniz CNM -[facility] Start: 08-24-2024 End: 08-24-2024 Patient encounter status Joelle Muniz CNM [facility] Start: 08-24-2024 End: 08-24-2024 ambulatory Edd Verdin PA Work Phone: [facility] Work Phone: Start: 10-30-2023 End: 10-30-2023 Office outpatient visit 15 minutes Edd Verdin PA-C Work Phone: [facility] Start: 06-19-2023 End: 06-19-2023 Office outpatient visit 15 minutes Edd Verdin PA-C Work Phone: [facility] Start: 06-19-2023 Review Edd Verdin PA-C Work Phone: [facility]. Start: 06-10-2023 End: 06-10-2023 Medication Edd Verdin PA-C Work Phone: [facility]. Start: 02-03-2022 End: 02-03-2022 ambulatory ERIKA PA-C [facility] Start: 02-03-2022 End: 02-03-2022 Office outpatient visit 15 minutes Edd Verdin PA-C [facility] Start: 10-23-2021 End: 10-23-2021 ambulatory EDD Smith VERDIN [facility] Start: 09-20-2021 End: 09-20-2021 Orders Edd Verdin PA-C Work Phone: [facility]. Start: 09-20-2021 End: 09-20-2021 Medication Edd Verdin PA-C Work Phone: [facility] Start: 09-05-2021 End: 09-05-2021 ambulatory EDD VERDIN [facility] Start: 08-29-2021 End: 08-29-2021 Orders Edd Verdin PA-C Work Phone: [facility] Start: 08-26-2021 End: 08-26-2021 Patient encounter procedure Edd Verdin PA-C Work Phone: [facility] Start: 11-12-2020 End: 11-12-2020 Medication Edd Verdin PA-C Work Phone: [facility] Start: 11-08-2020 End: 11-08-2020 Patient encounter procedure Edd Verdin PA-C Work Phone: [facility] Start: 02-27-2020 End: 02-27-2020 Nursing evaluation of patient and report Edd Verdin PA-C Work Phone: [facility]. Start: 06-07-2019 End: 06-07-2019 Telephone follow-up Edd Malaveer PA-C Work Phone: [facility] Start: 02-21-2019 End: 02-21-2019 Patient encounter procedure Edd Verdin PA-C Work Phone: [facility]. Start: 02-19-2019 End: 02-19-2019 Nursing evaluation of patient and report Edd Verdin PA-C Work Phone: [facility]. Start: 06-18-2018 End: 06-18-2018 Orders Edd Verdin PA-C Work Phone: [facility]. Start: 06-18-2018 End: 06-18-2018 Orders Edd Verdin PA-C Work Phone: [facility]. Start: 06-18-2018 End: 06-18-2018 Medication Edd Verdin PA-C Work Phone: [facility]. Start: 11-04-2014 End: 11-04-2014 Medication Edd Verdin PA-C Work Phone: [facility] Start: 10-05-2014 End: 10-05-2014 Patient encounter procedure Edd Verdin PA-C Work Phone: [facility] Start: 03-01-2014 End: 03-01-2014 Patient encounter procedure Edd Verdin PA-C Work Phone: [facility]. Start: 07-21-2012 End: 07-21-2012 Patient encounter procedure Edd Verdin PA-C Work Phone: [facility] Start: 03-24-2012 End: 03-24-2012 Nursing evaluation of patient and report Edd Verdin PA-C Work Phone: [facility] Start: 02-27-2011 End: 02-27-2011 Office outpatient visit 5 minutes Edd Verdin PA-C Work Phone: [facility] Start: 11-28-2010 End: 11-28-2010 Phone Encounter Edd Verdin PA-C Work Phone: [facility] Start: 11-18-2010 End: 11-18-2010 Patient encounter procedure Edd Verdin PA-C Work Phone: [facility] Start: 11-14-2010 End: 11-14-2010 Patient encounter procedure Edd NEWELL-Santiago Work Phone: [facility] Start: 05-17-2010 End: 05-17-2010 Medication Edd Verdin PA-C Work Phone: [facility] Start: 02-18-2010 End: 02-18-2010 Orders Edd Verdin PA-C Work Phone: [facility] Start: 01-29-2010 End: 01-29-2010 Patient encounter procedure Edd Verdin PA-C Work Phone: [facility] Procedures Date Procedure Procedure Detail Performing Clinician Start: 10-03-2024 Procedure Edd NEWELL Work Phone: Comment on above: Sent directly to [facility] per ordering physician. Start: 08-31-2024 Follicle [...] Thyroperoxidase Ab [Units/volume] in Serum or Plasma [facility] Start: 10-12-2024 [facility] Start: 10-03-2024 Procedure [facility] Start: 08-26-2021 Catecholamines total urine CATECHOLAMINES TOTAL, URINE (50263) Start: 26-Aug-2021 11:05-04:00 Request [facility]. DXA Bone [Mass/Area] Bone density [facility] FMR1 gene CGG repeat s [Presence] in Blood or Tissue by Molecular genetics method [facility] Mullerian inhibiting substance [Mass/volume] in Serum or Plasma [facility] Immunizations Immunization Date Immunization Notes Care Provider Erin lemos 02-27-2020 influenza, injectabl e, quadrivalent, contains preservative Edd Verdin PA-C Work Phone: [facility]; [facility] Comment on above: Site: Left DeltoidVI S Given: * Influenza - Inactivated (11/25/18) 06-07-2019 measles, mumps and rubella virus vaccine Edd Verdin PA Work Phone: [facility] 02-19-2019 influenza, injectabl e, quadrivalent, contains preservative Edd Verdin PA-C Work Phone: [facility]; [facility] Comment on above: Site: Left DeltoidVI S Given: * Influenza - Inactivated (11/17/14) 03-24-2012 influenza, seasonal, injectable Edd Verdin PA-C Work Phone: [facility]; [facility]. Comment on above: Site: Deltoid (Right )VIS Given: * Inactivated Influenza Vaccine (11/21/08) * Inactivated Influenza Vaccine (11/05/10) * Influenza vaccine , inactivated (10/13/2011) * VIS Given (Unspecified) 03-24-2012 IMMUNIZATION ADMIN ([id number]) Edd Verdin PA-C Work Phone: [facility]; [facility] 02-27-2011 influenza, seasonal, injectable Edd Verdin PA-C Work Phone: [facility]; [facility] Comment on above: Site: Deltoid (Right )VIS Given: * Inactivated Influenza Vaccine (11/21/08) * Inactivated Influenza Vaccine (11/05/10) * Inactivated Influenza Vaccine (11/05/10) * Inactivated Influenza Vaccine (11/05/10) * Inactivated Influenza Vaccine (11/05/10) * Inactivated Influenza Vaccine (11/05/10) * Inactivated Influenza Vaccine (11/05/10) * Inactivated Influenza Vaccine (11/05/10) * VIS Given (Unspecified) * VIS Given (Unspecified) 02-27-2011 IMMUNIZATION ADMIN ([id number]) Edd Verdin PA-C [facility]; [facility] Payers Date Payer Category Payer Self-pay [id number] 1985 Unknown [id number] 1985 Unknown [id number] Unknown Unknown [id number] Unknown [id number] Unknown [id number] [id number] Unknown [id number] Unknown [id number] Social History Date Type Detail Facility Non Smoker/No Tobacc o Use Non Smoker/No Tobacco [facility]; [facility] Start: 1985 Female [facility] Tobacco smoking consumption unknown [facility]; [facility] Work Phone: Start: 07-23-2023 Tobacco smoking stat [facility] Never smoked tobacco (finding) [facility] Start: 06-06-2019 Alcohol Alcohol [facility] Gender Identity Identifies as fe male gender (finding) [facility] Sexual Orientation Heterosexual (finding) [facility] Evaluation note 08-24-2024 Note Date & Type Note Facility 08-24-2024 Evaluation note Diagnosis Onset Date Resolution Secondary amenorrhea acute August 24, 2024 9:33am Encounter for routine gynecological examination noneactive August 24, 2024 9:33am [facility] Work Phone: Progress note 08-24-2024 Note Date & Type Note Facility 08-24-2024 Progress note [facility] Evaluation note Note Date & Type Note Facility Evaluation note Diagnosis Onset Date Resolution Secondary amenorrhea acute August 24, 2024 9:33am Encounter for routine gynecological examination noneactive August 24, 2024 9:33am [facility] Work Phone: Progress note Note Date & Type Note Facility Progress note Note Date/Time August 24, 2024 10:12am [facility] [address], [address] [place] [id number] OFFICE VISIT Date of Service: 08/24/24 MR#: [id number] Acct: [id number] Name: KAREN CHAMBERS Rep #: [id number] : 1985 Provider: LOLITA Muniz Age/Sex: 38/F [place] [facility] [place]: Signed Intake Vital Signs 07/23/23 14:26 08/24/24 09:38 08/24/24 09:40 Height 5 ft 8 in 5 ft 8 in 5 ft 8 in Weight: 132 lb 8 oz BMI 20.1 BP 121/79 H Intake Visit Reasons: Annual (REIMBURSEMENT SPEC) [employer] Required: No Is patient in pain?: No Allergies latex Adverse Reaction (Verified 08/24/24 09:39) Rash Medications ?Medication ?Instructions ?Recorded ?Confirmed ?Type valacyclovir 500 mg tablet 500 mg PO BID 07/23/2308/11 History (Valtrex) Is last menstrual period known: Yes Last Menstrual Period: 04/20/24 Post menopausal: No Patient : No : No Do you think of yourself as: straight/heterosexual Current gender identity: female [facility] Medical History Ventricular tachycardia Surgical History H/O [...] this. Has Lymes and sees physician in [place]-she feels like she is having a flair which may be affecting her menses.discussed labs and provera challenge, possible TVUS. Last PAP: 2022 History of abnormal PAP: no Last mammogram: Age 40 History of abnormal mammogram: na Colon cancer screening: Age 45 Other preventative health care screenings: physician in [place] Female Reproductive History Last Menstrual Period: 04/20/24 [...] Cosigner Signature: Date (if applicable) CC: ~ [facility] Work Phone: Reason for referral (narrative) Note Date & Type Note Facility Reason for referral (narrative) No reason for referral information available [facility] Work Phone: Summary Purpose Family History [...] for Visit Chief Complaint Admit Date Annual (REIMBURSEMENT SPEC) August 24, 2024 9:33a m Reason for Visit Admit Date Secondary amenorrhea August 24, 2024 9:33 am Encounter for routine gynecological exam ination August 24, 2024 9:33am Chief Complaint Admit Date Annual (REIMBURSEMENT SPEC) August 24, 2024 9:33a m Discuss labs, Premature ovarian insuffic iency October 12, 2024 1:27pm Additional Source Comments INFORMATION SOURCE (unrecogn ized section and content) DATE CREATED AUTHOR 11/19/2018 [facility] ([place]) DATE CREATED AUTHOR AUTHOR'S ORGANIZ ATION 11/14/2020 [facility] DATE CREATED AUTHOR AUTHOR'S ORGANIZ ATION 08/30/2021 [facility] DATE CREATED AUTHOR AUTHOR'S ORGANIZ ATION 02/04/2022 [facility] DATE CREATED AUTHOR AUTHOR'S ORGANIZ ATION 10/11/2024 [facility] Care Teams (unrecognized sec tion and [...] BE BASED ON THE PRIMARY CLINICAL RECORDS. [employer] provides no warranty or guarantee of the accuracy or completeness of information in this document.
[2024-10-18 23:07] LABS: Anti-Mullerian Hormone,Serum < 0.015 ng/mL (.)
== END | disposition home or self-care (01) ==
PROVIDERS: PCP Physician Assistant; Visit Provider Obstetrics & Gynecology
DX: E28.39 Other primary ovarian failure (principal); Z78.0 Asymptomatic menopausal state
CPT/HCPCS: 36415; 83516; 86376

== ENCOUNTER → 2024-10-27 | Outpatient (CLI) | payer SELFPAY ==
--- NOTE | 2024-10-27 11:00 | BD_ITS ---
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 TECHNIQUE: DEXA BONE DENSITY STUDY COMPARISON: None FINDINGS: BMD and Z-SCORES Lumbar spine: 0.937 g/cm2, Z-Score -1.0 L1 through L4 Left femoral neck: 0.696 g/cm2, Z-Score -1.4 Femoral neck comparison data not recommended for monitoring change. Left total hip: 0.767 g/cm2, Z-Score -1.4 Right femoral neck: 0.685 g/cm2, Z-Score -1.5 Femoral neck comparison data not recommended for monitoring change. Right total hip: 0.772 g/cm2, Z-Score -1.4 BD/Dexa Bone Density Study IMPRESSION: Osteopenia. Recommend follow-up, if clinically warranted. Reading Location: [place] [address]
== END | disposition home or self-care (01) ==
LOC: OPBD 11:00
PROVIDERS: PCP Physician Assistant; Referring Provider Obstetrics & Gynecology; Visit Provider Obstetrics & Gynecology
DX: E28.39 Other primary ovarian failure (principal); Z78.0 Asymptomatic menopausal state
CPT/HCPCS: 77080